=== PATIENT | male | born 1970 | race Caucasian/White ===

== ENCOUNTER 2018-04-30 09:44 | Inpatient (IN) | payer OTHER, SELFPAY ==
[2018-04-30] VITALS (24 sets, daily range): BP systolic 89–131; BP diastolic 53–97; PULSE 34–129; RESP 18–108; TEMP 36.6–37.4; O2SAT 90–98; BMI 30.4; BMI 29.0
--- NOTE | 2018-04-30 09:56 | EKG12_ITS ---
Test Reason : STEMI Blood Pressure : / mmHG Vent. Rate : 119 BPM Atrial Rate : 119 BPM P-R Int : 172 ms QRS Dur : 082 ms QT Int : 322 ms P-R-T Axes : 055 030 077 degrees QTc Int : 452 ms Sinus tachycardia Left atrial enlargement Anteroseptal infarct , possibly acute ACUTE [place] / STEMI Abnormal ECG Confirmed by JAGUAR HERNADEZ, LUZMARIA ([id number]), purchasing expeditor ION LOPEZ ([id number]) on 05/11/2018 3:49:57 PM Referred By: DEANN/GABBY Confirmed By:LUZMARIA MONTESINOS MD
--- NOTE | 2018-04-30 09:58 | ED.VISSUMM ---
- ER Visit Summary Date of Service: 04/30/18 Chief Complaint: [] Chest pain started 1/2-hour ago History of Present Illness: The patient is a 47 M [] reports no past history began having chest pain at half an hour ago, went to an urgent care center was given aspirin and per medics were called he was brought to the emergency department. The patient reports no past history no medications no drug use no [id number] or prescription meds his review of systems are negative for fever cough only chest pressure is actually states he is feeling slightly better after the aspirin his bowel bladder habits been normal We were sent his prehospital EKG and STEMI protocol team was activated Physical Examination: [] We are currently obtaining a full set of vital signs, he is awake and alert he appears well perfused his heart rate is 120 on the monitor he is in a sinus rhythm, EKG done immediately on arrival shows that he has ST segment elevation anterior leads, he is awake answering questions his airways intact his lungs sound clear the heart tones are tachycardic no obvious murmurs the abdomen soft and nontender upper lower extremities are without cyanosis clubbing or edema his pulses seem symmetric neurologically he is awake alert moving all [address] Rushing's care currently in the emergency department directing his STEMI care see all of the orders at this time he remains hemodynamically stable he states he is feeling better cardiology is planning to take the patient directly to cardiac Home Care Physical Therapist patient has been given the differential diagnosis, risks benefits, he is agreed to all the therapies outlined by Dr. Rushing and he is being taken direct to the Home Care Physical Therapist, all of his test results are pending and will be checked by the admitting team Test Results: [] Emergency Department Course and Treatment: [] Treatment Plan: [] Disposition: [] Admit to cardiac Home Care Physical Therapist/ICU Impression: [] Acute OK anterior, chest pain directly to cardiac Home Care Physical Therapist This note was generated with [employer] dictation software. It may contain incorrect words, spelling, and punctuation that were not noted in review of the chart prior to signing ED Disposition - Plan for ED Patient: Chief Complaint: Chest Pain
[2018-04-30] MEDS: TICAGRELOR 90 MG TABLET 180 MG PO (10:00)
[2018-04-30] MEDS: Heparin Injection (Vial) 5,000 UNIT/ML VIAL 5460 UNIT IV (10:00)
--- NOTE | 2018-04-30 10:02 | ED.DCSUM_ITS ---
- ER Visit Summary Date of Service: 04/30/18 Chief Complaint: [] Chest pain started 1/2-hour ago History of Present Illness: The patient is a 47 M [] reports no past history began having chest pain at half an hour ago, went to an urgent care center was given aspirin and per medics were called he was brought to the emergency department. The patient reports no past history no medications no drug use no [id number] or prescription meds his review of systems are negative for fever cough only chest pressure is actually states he is feeling slightly better after the aspirin his bowel bladder habits been normal We were sent his prehospital EKG and STEMI protocol team was activated Physical Examination: [] We are currently obtaining a full set of vital signs, he is awake and alert he appears well perfused his heart rate is 120 on the monitor he is in a sinus rhythm, EKG done immediately on arrival shows that he has ST segment elevation anterior leads, he is awake answering questions his airways intact his lungs sound clear the heart tones are tachycardic no obvious murmurs the abdomen soft and nontender upper lower extremities are without cyanosis clubbing or edema his pulses seem symmetric neurologically he is awake alert moving all [address] Rushing's care currently in the emergency department directing his STEMI care see all of the orders at this time he remains hemodynamically stable he states he is feeling better cardiology is planning to take the patient directly to cardiac Basting Machine Operator patient has been given the differential diagnosis, risks benefits, he is agreed to all the therapies outlined by Dr. Rushing and he is being taken direct to the Basting Machine Operator, all of his test results are pending and will be checked by the admitting team Test Results: [] Emergency Department Course and Treatment: [] Treatment Plan: [] Disposition: [] Admit to cardiac Basting Machine Operator/ICU Impression: [] Acute IA anterior, chest pain directly to cardiac Basting Machine Operator This note was generated with [employer] dictation software. It may contain incorrect words, spelling, and punctuation that were not noted in review of the chart p rior to signing ED Disposition - Plan for ED Patient: Chief Complaint: Chest Pain
[2018-04-30 10:13] LABS: Partial Thromboplast Time 26.5 Seconds (24.1-36.2); Prothrombin Time (Protime)PT. 13.3 SECONDS (11.7-14.9)
[2018-04-30 10:15] LABS: Absolute Lymphocyte Count 1.38 X10^3/ul (0.83-4.51); Absolute Neutrophil Count 9.3 X10^3/uL (2.0-7.7); Basophil# 0.01 X10^3/uL; Basophil% 0.1 % (0-1); Differential Indicated SCAN CRITERIA MET; Eosinophil# 0.01 X10^3/uL; Eosinophils% 0.1 % (0-5); Hematocrit 49.8 % (40-54); Hemoglobin 17.6 g/dl (13.0-16.5); Lymphocyte # 1.38 X10^3/ul (4.0); Lymphocyte % 11.1 % (19-41); Mean Corp Hgb Conc 35.3 g/gl (32-36); Mean Corpuscular Hgb 31.7 pg (27.0-32.0); Mean Corpuscular Volume 89.6 fL (80-94); Monocyte# 1.78 X10^3/uL; Monocyte% 14.3 % (0-10); Neutrophil # 9.29 X10^3/uL (2.7-7.7); Neutrophil % 74.3 % (47-70); POSITIVE COUNT NO; POSITIVE DIFFERENTIAL YES; POSITIVE MORPHOLOGY NO; Platelet Count 199 K/mm3 (150-450); RBC Distribution Width CV 13.1 % (11.6-14.6); RBC Distribution Width SD 42.5 fl (35.1-43.9); Red Blood Count 5.56 M/mm3 (4.6-6.2); White Blood Count 12.5 K/mm3 (4.4-11.0)
[2018-04-30 10:50] LABS: Anion Gap 11 (5-15); BUN 12 mg/dL (7-18); BUN/Creat Ratio 11.2 RATIO (10-20); Calcium,Total 9.1 mg/dL (8.5-10.1); Chloride 101 mmol/L (98-107); Creatinine, Serum 1.07 mg/dL (0.70-1.30); EST Glomerular Filtration Rate 79 mL/min (>60); Est Glom Filt Rate - Afr Amer 96 mL/min (>60); Estimated Creatinine Clearance 84.35 ml/min; Glucose 133 mg/dL (74-106); Potassium 3.6 mmol/L (3.5-5.1); Sodium Level 137 mmol/L (136-145)
--- NOTE | 2018-04-30 11:15 | EKG12_ITS ---
Test Reason : POST STEMI Blood Pressure : / mmHG Vent. Rate : 113 BPM Atrial Rate : 113 BPM P-R Int : 162 ms QRS Dur : 086 ms QT Int : 330 ms P-R-T Axes : 055 -02 078 degrees QTc Int : 452 ms Sinus tachycardia Septal infarct , age undetermined Abnormal ECG When compared with ECG of 30-APR-2018 11:36, MANUAL COMPARISON REQUIRED, DATA IS UNCONFIRMED Confirmed by JAGUAR HERNADEZ, LUZMARIA ([id number]), editor in chief newspaper ION LOPEZ ([id number]) on 05/06/2018 3:49:38 PM Referred By: VIKI Confirmed By:LUZMARIA MONTESINOS MD
--- NOTE | 2018-04-30 11:22 | CL.I_ITS ---
Patient Name: DELFINA LOPEZ Study Date: 04/30/2018 Performing: Mark Rushing MD Ht: 68 inches 173 cm : 1970 Wt: 200.9 lbs 91 kg Age: 47 Gender: male BSA: 2.05 PROCEDURE(S) PERFORMED [id number]/COR/LV [id number], SAMANTHA AND/OR PTCA, ARTERY OR GRAFT, SINGLE VESSEL [id number] INSERTION CLINICAL PROFILE AND CO-MORBIDITIES Patient presents with STEMI for emergent cardiac cath. Indications: ACS > 24 hrs, Suspected CAD Heart Failure: NYHA Class: 2, Newly Diagnosed: Yes, Heart Failure Type: Systolic Stress/Imaging Stress/Image Study Performed: No Angina Classification Anginal Classification w/in 2 Weeks: CCS IV CAD Presentations: STEMI. Symptom onset Date/Time: 04/29/2018 Time Not Available Comorbidities/Risk Factors: Hypertension Dyslipidemia Current/Recent Smoker (< 1year) CONCLUSIONS Single vessel CAD of the ostial LAD Segmented LV systolic dysfunction- Severe LVEF: by LV gram 45 % Depressed Left Ventricular systolic function - Severe Single vessel CAD of the LAD Successful PTCA/SAMANTHA proximal LAD using thrombectomy, followed by POBA, followed by 4.0 x 16 Promsu Sy nergy, post dilated throughtout with a 4.0 x 8 NC Balloon; 100%-->0%, no dissection or encroachment i nto LCX. Successful PTCA/SAMANTHA mid LAD with a 2.5 x 24 Promsu Synergy; 100%-->0%, no dissection. Successful PTCA/SAMANTHA distal LAD with a 2.5 x 24 Promus Synergy; 85%-->0%, no dissection. RECOMMENDATIONS Referred for immediate PCI Highly recommend quitting all tobacco products Follow up with primary juice scaleman Risk factor modification ASA Indefinitley Plavix for at least 12 months Routine post interventional care Refer for Outpatient Cardiac Rehab Manual sheath removal per protocol IABP at 1:2 for delayed STEMI presentation, high troponin and Severe anterior wall motion abnormaliti es. Follow up with Dr. Rushing DESCRIPTION OF PROCEDURE The patient arrived to the procedure lab. The risks and benefits of the procedure as well as a full d escription of our services here and lack of surgical backup were fully explained to the patient and/o r their significant other prior to the catheterization. The Timeout was completed, verifying the vianca ect patient and procedure. The patient's procedural site was prepped and draped in the usual fashion. Local anesthetic was given subcutaneously to right groin region with Lidocaine 2%. Using a modified Seldinger technique, arterial access was obtained via the right femoral artery, a 6Fr sheath was inse rted.. Right Coronary Artery selective angiography was then performed in multiple views using a 4 Fr . 3DRC catheter. Left Ventriculography was performed in CASTILLO projection using a 4 Fr. Pigtail catheter . LV to AO pullback pressures were then recordedArrow 40cc 7.5F UltraFlex IABP - Qty: 1 Each Part #: [id number], A 7Fr 40cc IABP catheter was inserted into the right femoral artery, IABP settings: 1:2, The IA BP catheter and sheath were secured in place EBU 3.75 Guide catheter was inserted and engaged into the LCA. runthrough Guide wire was advanced to the LAD. Killbuck AP inserted Pass # 1 Killbuck AP Removed emerge 2.5x12 Balloon catheter was inserted. P TCA balloon inflated at 6 atms for 8 secs. PTCA balloon inflated at 6 atms for 8 secs. Killbuck AP inse rted Pass # 2 Killbuck AP Removed Angiogram performed post balloon dilatation. BMW Guide wire was inser janis as a fabiana wire to the circ emerge 2.5x12 Balloon catheter was inserted. PTCA balloon inflated at 6 atms for 10 secs. PTCA balloon inflated at 6 atms for 8 secs. Angiogram performed post balloon dil atation. synergy 2.5x16 Drug Eluting stent was inserted. Drug Eluting stent was removed intact, faile d to cross lesion synergy 4.00x16 Drug Eluting stent was inserted. nc emerge 4.00x8 Balloon catheter was inserted. PTCA balloon inflated at 12 atms for 10 secs. PTCA balloon inflated at 12 atms for 6 se cs. PTCA balloon inflated at 12 atms for 8 secs. Angiogram performed post balloon dilatation. synergy 2.5x16 Drug Eluting stent was inserted. Drug Eluting stent was removed intact, failed to cross lesio n synergy 2.5x20 Drug Eluting stent was inserted. Angiogram performed post stent deployment. synergy 2.50x28 Drug Eluting stent was inserted. Angiogram performed post stent deployment. nc emerge 4.00x8 Balloon catheter was inserted. PTCA balloon inflated at 12 atms for 7 secs. PTCA balloon inflated at 12 atms for 9 secs. emerge 2.5x12 Balloon catheter was inserted on Circ BMW wire Angiogram performed post balloon dilatation. Arterial sheath was exchanged for a 7 Fr Sheath. The arterial sheath was s utured in place and capped CORONARY ANGIOGRAPHY DOMINANCE: Right Dominant LEFT HEART ASSESSMENT Left Ventricular Ejection Fraction: by LV Gram 45 % Depressed Left Ventricular systolic function LVEDP: 30 mmHg Anterior Hypokinesis - Severe LEFT MAIN: Angiographically normal LEFT ANTERIOR DECENDING ARTERY: OSTIAL LAD: is occluded CIRCUMFLEX ARTERY: Angiographically normal RIGHT CORONARY ARTERY: Angiographically normal COLLATERAL FLOW: Collateral flow from Right to Left INTERVENTION INFORMATION LESION SITE: LAD (Mid) Lesion Complexity: High/C, lesion at bifurcation: Yes, thrombus present: Yes, lesion length: 16 mm, c ulprit lesion: Yes Pre Stenosis: 100 % Pre intervention TONYA flow: 0 PROCEDURE: Balloon Angioplasty, Thrombectomy, Drug Eluting Stent with pre and post dilatation Post Stenosis: 0 % Post intervention TONYA flow: 3 Lesion Devices: Medtronic 6 Fr. Killbuck AP Aspiration Catheter Meng Sci EMERGE MR 2.50x12 BALLOON Meng Sci Synergy MR SAMANTHA 2.50x28 LESION SITE: LAD (Proximal) Lesion Complexity: High/C, lesion at bifurcation: No, thrombus present: Yes, lesion length: 24 mm, cu lprit lesion: No Pre Stenosis: 100 % Pre intervention TONYA flow: 0 PROCEDURE: Drug Eluting Stent with pre and post dilatation Thrombectomy Post Stenosis: 0 % Post intervention TONYA flow: 3 Lesion Devices: Medtronic 6 Fr. Killbuck AP Aspiration Catheter Meng Sci EMERGE MR 2.50x12 BALLOON Meng Sci Synergy MR SAMANTHA 4.00x16 Meng Sci NC EMERGE MR 4.00x08 BALLOON LESION SITE: LAD (Distal) Lesion Complexity: High/C, lesion at bifurcation: No, thrombus present: No, lesion length: 24 mm, cul prit lesion: No Pre Stenosis: 85 % Pre intervention TONYA flow: 0 PROCEDURE: Drug Eluting Stent with pre dilatation. 0 % Post intervention TONYA flow: 3 Lesion Devices: Meng Sci EMERGE MR 2.50x12 BALLOON Meng Sci Synergy MR SAMANTHA 2.50x16 Meng Sci Synergy MR SAMANTHA 2.50x20 COMPLICATIONS No Complications PROCEDURE MEDICATIONS Morphine 2 mg IV Oxygen: 2 L/min via nasal cannula Heparin 4000 unit(s) IV 04/30/2018 10:03:44 Heparin 4000 unit(s) IV 04/30/2018 10:03:44 Heparin 25,000u / 250ml D5W @ 800 u/hr IV started 04/30/2018 10:59:09 Nitro 200 mcg IC 04/30/2018 10:10:35 Nitro 200 mcg IC 04/30/2018 10:10:35 Nitro 200 mcg IC 04/30/2018 10:15:39 IV Bolus: .9 NaCl 1400ml total 04/30/2018 09:59:01 SUMMARY OF HEMODYNAMIC DATA Time AIR REST ECG 09:55:31 AO 101/71 (84) SA 10:01:24 LV 122/-2, 18 10:49:58 LV 122/-4, 30 10:50:05 LVp 126/1, 34 10:50:24 AOp 116/78 (94) 10:50:29 Signed By Mark Rushing MD On 05/01/2018 08:39:07 Mark Rushing MD
--- NOTE | 2018-04-30 11:43 | PCM.HP.STD ---
Problem List (1) ST elevation myocardial infarction (STEMI) of anterior wall Status: Acute (2) Tobacco use Status: Chronic (3) HTN (hypertension) Status: Chronic Qualifiers: Hypertension type: essential hypertension Qualified Code(s): I10 - Essential (primary) hypertension (4) HLD (hyperlipidemia) Status: Chronic Qualifiers: Hyperlipidemia type: unspecified Qualified Code(s): E78.5 - Hyperlipidemia, unspecified History of Present Illness Date of Admission: 04/30/18 Chief Complaint: Chest pain, dyspnea. The patient is a 47 y/o M w/ PMHx: Tobacco use who presents to the [facility] ED on 04/30/18 with history of onset midsternal chest pressure, rated / with radiation toward the back between his scapular with associated dyspnea, diaphoresis but no nausea or emesis starting this past Friday, intermittent, waxing and waning he notes, worse with any exertion but more severe episode ~ 20-30 minutes prior to ED arrival. Upon ED presentation work-up included 98, heart rate 127, BP 120/80, respiratory rate 20, 96% on room air, BC with WC 12.5, hemoglobin 17.6, platelet 199 with left shift, unremarkable coags except activated clotting time 202, BMP with glucose 133, troponin 74.4, urine drug screen negative, EKG w/ sinus rhythm with ST segment elevation in the anterior leads. STEMI immediately called and patient administered Brilinta load, heparin bolus, aspirin therapy. The patient was transitioned to the Cardiac Catheterization lab from ED w/ door to balloon time 19 minutes w/ single-vessel CAD of the LAD with successful PTCA/SAMANTHA of the proximal LAD using thrombectomy in addition to the mid and distal LAD with continued balloon pump in place with transition to the ICU following. Noted evidence of severe segmented LV systolic dysfunction with LVEF 45%. Discussion with cardiology and given patient's notable findings on cardiac catheterization continued balloon pump in place with transition per cardiology discretion with continued aspirin, Brilinta, continued Integrilin drip, high-dose statin with AM FLP, Coreg, losartan. Pending echocardiogram. Continue cardiac enzyme trending, repeat EKGs. Aspirin, morphine, nitroglycerin. Upon evaluation, patient notes chest discomfort improved since prior, was prior 06/06-->now 11/04. Past Medical History Past Medical History (Chronic Problems): Chronic Problems Tobacco use (Chronic) HTN (hypertension) (Chronic) HLD (hyperlipidemia) (Chronic) Allergies No Known Allergies Allergy (Verified 04/30/18 10:01) Home Medications: Ambulatory Orders Medication Instructions Recorded NK 04/30/18 Surgical History: no surgical history Psychiatric History: No pertinent psych hx Lives: Spouse/ Significant Other, With Family Smoking Status: Current every day smoker - Patient notes one approximate pack rolled cigarettes per day. Tobacco Use: Cigarettes Alcohol: None Drugs: None - *Family History Maternal History Items: - - Patient denies any marked maternal or paternal family history including heart disease, diabetes, cancer. Paternal History Items: - - Patient denies any marked maternal or paternal family history including heart disease, diabetes, cancer. Review of Systems Constitutional: Reports: Malaise, Weakness, Fatigue. Denies: Chills, Fever, Weight Change HEENT: Denies: Head Aches, Sinus Congestion, Sinus Drainage Cardiovascular: Reports: Chest Pain, Chest Pressure, Heaviness. Denies: Edema, Light Headedness, Orthopnea, Palpitations, Syncope Respiratory: Reports: Shortness of Breath, Shortness of breath upon exertion. Denies: Cough, Shortness of breath at rest, Sputum production Gastrointestinal: Denies: Abdominal Pain, Nausea, Vomiting Genitourinary: Denies: Dysuria Musculoskeletal: Reports: Back Pain, Neck Pain. Denies: Joint Pain, Joint Tenderness Skin: Denies: Rash, Wounds Neurological: Denies: Numbness, Tingling, Focal weakness Psychiatric: Denies: Anxiety, Depression, Homicidal Ideations, Suicidal Ideations Hematologic/ Lymphatic: Denies: Easy Bruising, Easy Bleeding VTE Information - Inpt Only VTE Present on Admission: No VTE Mechan Device Prophylaxis: SCD's VTE Pharm Prophylaxis ordered?: Yes Patient Problems: Active and Suspected Problems ST elevation myocardial infarction (STEMI) of anterior wall (Acute) Subjective: Seated in the ICU bed on bedrest status post cardiac catheterization with balloon pump in place, notes chest discomfort has improved since initial presentation, now rated 4 out of 10. Objective: Physical Examination: General: awake, alert, oriented x 3 and cooperative, seated upright in the ICU bed at angle secondary to ongoing balloon pump and recent cardiac catheterization, improved chest pain since initial presentation. Skin: normal color, turgor, no icterus, cyanosis. HEENT: AT/NC, EOMI, PERRLA, mildly dry MM, no carotid bruits or JVD noted. Lungs: CTA bilaterally, moderate effort, mild decrease BL bases, no rales, ronchi or wheezing. Heart: Tachycardic with regular rhythm; no gallop, rub audible, ? SM although suspect secondary to balloon pump in place. Abdomen: soft, NTTP, ND, normal BS, no HSM. Extremities: no cyanosis, clubbing, R groin w/ balloon pump sheath in place, no active bleeding, 2 separate outlined regions on gauze from prior bleeding. Neurological: patient awake, alert, oriented x 3; cognitive function intact; pupils equally reactive to light and accomodation; cranial nerves II-XII grossly normal, moving all 4 extremities; however, limited movement secondary to ongoing balloon pump in place and recent catheterization, strength therefore difficult to assess but currently globally decreased secondary to acute presentation. Psychiatric: affect appears normal, no acute evidence of depressive or anxiety feelings. - Physical Exam Vital Signs Temp Pulse Resp BP 98 F 127 H 20 H 120/80 04/30/18 09:46 04/30/18 09:46 04/30/18 09:46 04/30/18 09:46 Oxygen Flow Rate (L/min) 3 Oxygen Delivery Method Nasal Cannula Weight: 200 lb 9.93 oz Body Mass Index (BMI) 30.4 Laboratory Tests Past 24 Hrs 04/30/18 04/30/18 04/30/18 09:48 09:48 09:48 WBC 12.5 H RBC 5.56 Hgb 17.6 H Hct 49.8 MCV 89.6 MCH 31.7 MCHC 35.3 RDW 13.1 RDW Differential 42.5 Plt Count 199 MPV 11.0 Immature Gran % (Auto) 0.100 Neut % (Auto) 74.3 H Lymph % (Auto) 11.1 L [place] % (Auto) 14.3 H Eos % (Auto) 0.1 Baso % (Auto) 0.1 Absolute Neuts (auto) 9.3 H Absolute Lymphs (auto) 1.38 Total Counted Not Reportable Differential Comment COMMENT PT 13.3 INR 1.0 APTT 26.5 Sodium 137 Potassium 3.6 Chloride 101 Carbon Dioxide 25.0 Anion Gap 11 BUN 12 Creatinine 1.07 Estim Creat Clear Calc 84.35 Est GFR (MDRD) Af Amer 96 Est GFR (MDRD) Non-Af 79 BUN/Creatinine Ratio 11.2 Glucose 133 H Calcium 9.1 Troponin I 74.400 H* Assessment/Plan All Active Problems ST elevation myocardial infarction (STEMI) of anterior wall (Acute) Chest pain (Acute) The patient is a 47 y/o M w/ PMHx: Tobacco use who presents to the [facility] ED on 04/30/18 with history of onset midsternal chest pressure, rated 11/10 with radiation toward the back between his scapular with associated dyspnea, diaphoresis but no nausea or emesis starting this past Friday, intermittent, waxing and waning he notes, worse with any exertion but more severe episode ~ 20-30 minutes prior to ED arrival. (1) Chest Pain secondary to Acute Anterior STEMI: ED presentation work-up included 98, heart rate 127, BP 120/80, respiratory rate 20, 96% on room air, BC with WC 12.5, hemoglobin 17.6, platelet 199 with left shift, unremarkable coags except activated clotting time 202, BMP with glucose 133, troponin 74.4, urine drug screen negative, EKG w/ sinus rhythm with ST segment elevation in the anterior leads. STEMI immediately called and patient administered Brilinta load, heparin bolus, aspirin therapy. Cardiac Catheterization w/ single-vessel CAD of the LAD with successful PTCA/SAMANTHA of the proximal LAD using thrombectomy in addition to the mid and distal LAD with continued balloon pump in place with transition to the ICU following. Noted evidence of severe segmented LV systolic dysfunction with LVEF 45%. Discussion with cardiology and given patient's notable findings on cardiac catheterization continued balloon pump in place with transition per cardiology discretion with continued aspirin, Brilinta, continued Integrilin drip, high-dose statin with AM FLP, Coreg, losartan. Pending echocardiogram. Continue cardiac enzyme trending, repeat EKGs. Aspirin, morphine, nitroglycerin. (2) Hyperglycemia: Admission glucose 133, likely stress response, hemoglobin A1c pending. (3) Tobacco Abuse: Encouraged cessation, inpatient consultation per RT, NR if desired. (4) DVT Prophylaxis: SCDs, heparin bolus as noted administered, start chemoprophylaxis once allowed per Cardiology. Code Visit Inpatient E&M: 65907 Init Hosp L3
[2018-04-30 11:46] LABS: ACT Activated Clotting Time 202 sec (74-137)
[2018-04-30] MEDS: diazePAM 5 MG Tablet PO ×2 (12:45→20:21)
[2018-04-30] MEDS: Morphine 4 MG/ML Syringe IV ×2 (12:47→20:21)
[2018-04-30] MEDS: 0.9% Normal Saline 1,000 ML 150 ML IV (12:50)
[2018-04-30 12:53] LABS: Magnesium 1.6 mg/dL (1.6-2.6)
[2018-04-30 13:29] LABS: Amphetamine Urine VISTA NEGATIVE (<1000 ng/mL); Barbiturate Urine VISTA NEGATIVE (< 200 ng/mL); Benzodiazepine Urine VISTA NEGATIVE (< 200 ng/mL); Cocaine Urine VISTA NEGATIVE (< 300 ng/mL); Ecstacy Urine VISTA NEGATIVE (< 500 ng/mL); Methadone Urine VISTA NEGATIVE (< 300 ng/mL); PCP Urine VISTA NEGATIVE (< 25 ng/mL); THC Urine VISTA NEGATIVE (< 50 ng/mL); Vista UDS pH Range 5
[2018-04-30 15:10] LABS: M R Staph aureus DNA By PCR Negative (Negative); Probe Check PASS; Specimen Processing Control PASS
--- NOTE | 2018-04-30 15:50 | RAD_ITS ---
STUDY: X-RAY CHEST REASON FOR EXAM: Male, 47 years old. Intra-arterial blood pressure line placement. TECHNIQUE: Single AP portable view of the chest. COMPARISON: None. FINDINGS: The intra-arterial blood pressure line ends at the level of T3, proximal descending aorta. The lungs are clear and expanded. There is no demonstrated pleural abnormality. Normal size heart. Normal mediastinum and gaston. Normal visualized pulmonary arteries. Normal visualized aortic arch and descending thoracic aorta. Normal visualized thoracic spine. Normal visualized ribs, clavicles, and shoulders. There is no demonstrated abnormality of the visualized soft tissue structures of the upper abdomen. RAD/CXR for Line Placement IMPRESSION: Intra-arterial blood pressure line ends in the proximal descending aorta. No acute cardiopulmonary findings. Electronically Signed: Luzmaria Zelaya MD at 16:09 EDT , Service support ,
[2018-04-30 16:20] LABS: Bedside Glucose 127 mg/dL (70-110)
[2018-04-30] MEDS: Metoprolol Tartrate 5 MG/5 ML Vial IV (16:53)
[2018-04-30 17:02] LABS: Hemoglobin A1c 5.3 % (4.2-6.3)
[2018-04-30] MEDS: 0.9% NaCl Peripheral Flush Adult/Peds IV ×2 (20:21→20:22)
[2018-04-30] MEDS: Atorvastatin Calcium 80 MG Tablet PO (21:23)
[2018-04-30] MEDS: TICAGRELOR 90 MG TABLET PO (21:23)
[2018-04-30] MEDS: Famotidine 20 MG Tablet PO (21:23)
[2018-04-30] MEDS: Furosemide 20 MG/2 ML VIAL 40 MG IV (21:55)
[2018-04-30 23:11] LABS: Partial Thromboplast Time 45.5 Seconds (24.1-36.2)
--- NOTE | 2018-04-30 23:30 | NURSING ---
gave 1000 units of heparin in 1 ml per nomogram in MAR
[2018-05-01] VITALS (34 sets, daily range): BP systolic 81–148; BP diastolic 49–89; PULSE 73–108; RESP 15–29; TEMP 37–38.9; O2SAT 88–97
[2018-05-01 05:27] LABS: Hematocrit 44.8 % (40-54); Hemoglobin 15.8 g/dl (13.0-16.5); Mean Corp Hgb Conc 35.3 g/gl (32-36); Mean Corpuscular Hgb 31.3 pg (27.0-32.0); Mean Corpuscular Volume 88.9 fL (80-94); Mean Platelet Vol. 10.8 fl (6.2-12.0); Platelet Count 213 K/mm3 (150-450); RBC Distribution Width CV 13.5 % (11.6-14.6); RBC Distribution Width SD 43.5 fl (35.1-43.9); Red Blood Count 5.04 M/mm3 (4.6-6.2); White Blood Count 12.9 K/mm3 (4.4-11.0)
[2018-05-01 05:37] LABS: Scan Indicated on CBC? Y/N NO
[2018-05-01 05:42] LABS: Anion Gap 9 (5-15); BUN 19 mg/dL (7-18); BUN/Creat Ratio 17.3 RATIO (10-20); Calcium,Total 8.2 mg/dL (8.5-10.1); Chloride 100 mmol/L (98-107); Cholesterol 162 mg/dL (200); EST Glomerular Filtration Rate 77 mL/min (>60); Est Glom Filt Rate - Afr Amer 93 mL/min (>60); Estimated Creatinine Clearance 82.05 ml/min; Glucose 121 mg/dL (74-106); High Density Lipoprotein 37 mg/dL; Potassium 3.5 mmol/L (3.5-5.1); Sodium Level 135 mmol/L (136-145); Triglycerides 145 mg/dL; Very Low Density Lipoprotein 29 mg/dL (5-40)
[2018-05-01 05:57] LABS: Partial Thromboplast Time 54.6 Seconds (24.1-36.2)
[2018-05-01 06:30] LABS: Bedside Glucose 143 mg/dL (70-110)
--- NOTE | 2018-05-01 06:58 | PCM.PN.HOSP ---
Patient Problems: Active and Suspected Problems (Last Updated 04/30/18 @ 16:41 by Hina Pruett) Atherosclerotic heart disease of [place] coronary artery with unstable angina pectoris (Acute 04/30/18) PTCA and SAMANTHA to proximal LAD using thrombectomy followed by POBA, followed by 4.0 X 16 mm Promus Synergy; SAMANTHA to 100% stenosed mid LAD: 2.5 X 24 Promus Synergy; SAMANTHA to 85% stenosed distal LAD : 2.5 X 24 Promus Synergy. Stented coronary artery (Acute 04/30/18) PTCA and SAMANTHA to proximal LAD using thrombectomy followed by POBA, followed by 4.0 X 16 mm Promus Synergy; SAMANTHA to 100% stenosed mid LAD: 2.5 X 24 Promus Synergy; SAMANTHA to 85% stenosed distal LAD : 2.5 X [address] elevation myocardial infarction (STEMI) of anterior wall (Acute) Subjective: Patient with ongoing balloon pump usage with echocardiogram with notable EF reduction and hypokinesis evident with pending results. Patient also with ongoing mild tachycardia and dyspnea with aerosols initiation as well as ICU physician consultation. Discussion with patient and with ICU physician given history suspected possible underlying reduced function baseline versus exertional hypoxemia with need for PFTs and walking oximetry upon discharge with pulmonary outpatient. Patient overnight with some concern for failure therefore administrated IV Lasix therapy per cardiology. Patient notes ongoing severe fatigue with any movements although limited given balloon pump ongoing, denies any chest pain this AM, does have desaturations intermittently overnight. Patient denies fevers, chills, nausea, emesis, abdominal pain. Objective: Physical Examination: General: awake, alert, oriented x 3 and cooperative, seated upright in the ICU bed at angle, ongoing balloon pump, denies any current chest pain. Skin: normal color, turgor, no icterus, cyanosis, R groin w/ balloon pump in place. HEENT: AT/NC, EOMI, PERRLA, improved MMM. Lungs: Diminished BS BL bases, mild effort, no rales, ronchi or wheezing. Heart: Still mildly tachycardic with regular rhythm; no gallop, rub audible. Abdomen: soft, NTTP, ND, normal BS. Extremities: no cyanosis, clubbing, R groin w/ balloon pump sheath in place. Neurological: patient awake, alert, oriented x 3; cognitive function intact; pupils equally reactive to light and accomodation; cranial nerves II-XII grossly normal, moving all 4 extremities; however, limited movement secondary to ongoing balloon pump in place and recent catheterization, strength therefore difficult to assess but currently globally decreased. Psychiatric: affect appears normal, no acute evidence of depressive or anxiety feelings. Vitals/I&O's: Vital Signs Temp Pulse Resp BP Pulse Ox 99 F 98 26 H 91/71 91 05/01/18 06:00 05/01/18 06:00 05/01/18 06:00 05/01/18 06:00 05/01/18 06:00 Oxygen Flow Rate (L/min) 2 Oxygen Delivery Method Nasal Cannula Weight: 194 lb 0.108 oz Body Mass Index (BMI) 29.0 Intake and Output for Last 24 Hours 04/29/18 04/30/18 05/01/18 23:59 23:59 23:59 Intake Total 800 / 800 928 / 928 Output Total 2268 / 2268 690 / 690 Balance -1468 / -1468 238 / 238 Laboratory Results 04/30/18 09:48: WBC 12.5 H, RBC 5.56, Hgb 17.6 H, Hct 49.8, MCV 89.6, MCH 31.7, MCHC 35.3, RDW 13.1, RDW Differential 42.5, Plt Count 199, MPV 11.0, Immature Gran % (Auto) 0.100, Neut % (Auto) 74.3 H, Lymph % (Auto) 11.1 L, [place] % (Auto) 14.3 H, Eos % (Auto) 0.1, Baso % (Auto) 0.1, Absolute Neuts (auto) 9.3 H, Absolute Lymphs (auto) 1.38, Total Counted Not Reportable, Differential Comment COMMENT 04/30/18 09:48: PT 13.3, INR 1.0, APTT 26.5 04/30/18 09:48: Sodium 137, Potassium 3.6, Chloride 101, Carbon Dioxide 25.0, Anion Gap 11, BUN 12, Creatinine 1.07, Estim Creat Clear Calc 84.35, Est GFR (MDRD) Af Amer 96, Est GFR (MDRD) Non-Af 79, BUN/Creatinine Ratio 11.2, Glucose 133 H, Calcium 9.1, Troponin I 74.400 H* 10/04/18 09:48: Magnesium 1.6 04/30/18 10:00: Activated Clotting Time 202 H 04/30/18 12:20: MRSA (PCR) Negative 04/30/18 13:00: Urine Opiates Screen NEGATIVE, Urine Methadone Screen NEGATIVE, Ur Barbiturates Screen NEGATIVE, Ur Phencyclidine Scrn NEGATIVE, Ur Amphetamines Screen NEGATIVE, U Methamphetamin-MDMA NEGATIVE, U Benzodiazepines Scrn NEGATIVE, Urine Cocaine Screen NEGATIVE, U Cannabinoids Screen NEGATIVE, Ur Drug Screen Comment 04/30/18 13:50: Troponin I > 200.000 H* 04/30/18 16:18: POC Glucose 127 H 04/30/18 16:36: Troponin I 172.000 H* 04/30/18 16:36: Hemoglobin A1c 5.3 04/30/18 20:05: Troponin I 125.000 H* 04/30/18 22:55: APTT 45.5 H 05/01/18 05:10: WBC 12.9 H, RBC 5.04, Hgb 15.8, Hct 44.8, MCV 88.9, MCH 31.3, MCHC 35.3, RDW 13.5, RDW Differential 43.5, Plt Count 213, MPV 10.8 05/01/18 05:10: Sodium 135 L, Potassium 3.5, Chloride 100, Carbon Dioxide 26.0, Anion Gap 9, BUN 19 H, Creatinine 1.10, Estim Creat Clear Calc 82.05, Est GFR (MDRD) Af Amer 93, Est GFR (MDRD) Non-Af 77, BUN/Creatinine Ratio 17.3, Glucose 121 H, Calcium 8.2 L, Triglycerides 145, Cholesterol 162, LDL Cholesterol 96, VLDL Cholesterol 29, HDL Cholesterol 37 L 05/01/18 05:10: APTT 54.6 H 05/01/18 06:23: POC Glucose 143 H Current Medications Acetaminophen (Tylenol) 650 mg PO Q6H PRN PRN PRN Reason: Mild Pain (0-2/10) Al Hydroxide/Mg Hydroxide (Mylanta Ii) 30 ml PO Q6H PRN PRN PRN Reason: Gastric burning Atorvastatin Calcium (Lipitor) 80 mg PO QHS YESY Last Admin: 04/30/18 21:23 Dose: 80 mg Atropine Sulfate () 0.5 mg IV UD PRN PRN Reason: HR <50 bpm Carvedilol (Coreg) 3.125 mg PO BID [facility] Last Admin: 04/30/18 21:12 Dose: Not Given Diazepam (Valium) 5 mg PO Q6H PRN PRN PRN Reason: BACK SPASMS/ANXIETY Last Admin: 04/30/18 20:21 Dose: 5 mg Famotidine (Pepcid) 20 mg PO BID [facility] Last Admin: 04/30/18 21:23 Dose: 20 mg Heparin Sodium (Beef Lung) (Heparin 500 Unit/5 Ml (100/Ml)) 500 unit IV UD PRN PRN Reason: HEPARIN FLUSH Heparin Sodium/Dextrose () 25,000 units in 250 mls @ 12 mls/hr IV .[id number] [facility]; Protocol Last Admin: 04/30/18 12:46 Dose: Not Given Amiodarone HCl/Dextrose (Nexterone 360 Mg/200 Ml Bag) 360 mg in 200 mls @ 16.667 mls/hr CONT INF .Q12H [facility] Stop: 05/01/18 21:28 Last Admin: 05/01/18 04:54 Dose: 16.667 mls/hr Ibuprofen (Motrin) 600 mg PO Q6H PRN PRN PRN Reason: MILD PAIN (1-3/10) Labetalol HCl (Trandate) 5 mg IV X1 PRN PRN Reason: SBP > 160 when pulling sheath Magnesium Hydroxide (Milk Of Magnesia) 30 ml PO DAILY PRN PRN PRN Reason: Constipation Morphine Sulfate () 4 mg IV Q4H PRN PRN PRN Reason: Moderate back pain (3-5/10) Last Admin: 04/30/18 20:21 Dose: 4 mg Ondansetron HCl (Zofran) 4 mg IV Q8H PRN PRN PRN Reason: NAUSEA Promethazine HCl (Phenergan) 12.5 mg IV Q6H PRN PRN PRN Reason: NAUSEA/VOMITING Sodium Chloride () 500 ml IV BOLUS PRN PRN Reason: VASO-VAGAL PROTOCOL Sodium Chloride () 5 - 30 ml IV UD PRN PRN Reason: SALINE FLUSH Last Admin: 04/30/18 20:22 Dose: 10 ml Ticagrelor (Brilinta) 90 mg PO BID [facility] Last Admin: 04/30/18 21:23 Dose: 90 mg Valsartan (Diovan) 80 mg PO DAILY [facility] Medical Necessity - Tobacco Use Smoking Status: Current every day smoker Tobacco Use: Cigarettes Assessment/Plan All Active Problems (Last Updated 04/30/18 @ 16:41 by Hina Pruett) Atherosclerotic heart disease of [place] coronary artery with unstable angina pectoris (Acute 04/30/18) Stented coronary artery (Acute 04/30/18) ST elevation myocardial infarction (STEMI) of anterior wall (Acute) Chest pain (Acute) The patient is a 47 y/o M w/ PMHx: Tobacco use who presents to the [facility] ED on 04/30/18 with history of onset midsternal chest pressure, rated 11/10 with radiation toward the back between his scapular with associated dyspnea, diaphoresis but no nausea or emesis starting this past Friday, intermittent, waxing and waning he notes, worse with any exertion but more severe episode ~ 20-30 minutes prior to ED arrival. (1) Chest Pain secondary to Acute Anterior STEMI: ED presentation work-up included 98, heart rate 127, BP 120/80, respiratory rate 20, 96% on room air, BC with WC 12.5, hemoglobin 17.6, platelet 199 with left shift, unremarkable coags except activated clotting time 202, BMP with glucose 133, troponin 74.4, urine drug screen negative, EKG w/ sinus rhythm with ST segment elevation in the anterior leads. STEMI immediately called and patient administered Brilinta load, heparin bolus, aspirin therapy. Cardiac Catheterization w/ single-vessel CAD of the LAD with successful PTCA/SAMANTHA of the proximal LAD using thrombectomy in addition to the mid and distal LAD with continued balloon pump in place with transition to the ICU following. Noted evidence of severe segmented LV systolic dysfunction with LVEF 45%. Discussion with cardiology and given patient's notable findings on cardiac catheterization continued balloon pump in place with transition per cardiology discretion with continued aspirin, Brilinta, Integrilin drip to completion now transitioned back to heparin drip per Cardiology discretion, high-dose statin with AM FLP w/ TG 145, TChol 162, LDL 96, LDL 29, HDL 37, Coreg, losartan. ECHO obtained, read pending but per preliminary discussions notably reduced EF and hypokinesis noted. Mag 1.6, supplemented. Continue cardiac enzyme trending w/ Trop 74.4-->>200-->172-->125, repeat EKGs as needed. Aspirin, morphine, nitroglycerin. (2) Acute Systolic CHF Exacerbation secondary to #1 (Acute Anterior STEMI) and possible Ischemic Cardiomyopathy: Maintained on the balloon pump, ECHO this AM w/ preliminary report w/ reduced EF 25% and notable hypokinesis, maintained on aspirin, Coreg, intermittent PRN IV Lasix per cardiology discretion, diovan, brillinta and high dose statin therapy. (3) Hypoxia secondary to #1, #2 and Suspected Underlying Pulmonary Disease/Chronic COPD w/ prolonged history of Tobacco use: Desaturations w/ activity, resting, will maintain on oxygen with wean as tolerated to room air, continue ATC duonebs, PRN albuterol, HOB, IS parameters. Will need follow-up with pulmonary following discharge for PFTs and walking oximetry testing. Prior to current discharge once allowed when balloon pump d/c will need oxygenation testing. (4) Hypertension: Continue home regimen including Coreg, Diovan, intermittent PRN IV Lasix given #2. (5) Hyperlipidemia: Continue statin regimen. AM FLP w/ TG 145, TChol 162, LDL 96, LDL 29, HDL 37. (6) Hyperglycemia: Admission glucose 133, likely stress response, hemoglobin A1c 5.3%. (7) Tobacco Abuse: Encouraged cessation, inpatient consultation per RT, deferred NR given admission presentation history. (8) DVT Prophylaxis: SCDs, heparin drip. Code Visit Inpatient E&M: 21034 Subs Hosp L3
--- NOTE | 2018-05-01 07:09 | PN_ITS ---
Patient Problems: Active and Suspected Problems (Last Updated 04/30/18 @ 16:41 by Hina Pruett) Atherosclerotic heart disease of [place] coronary artery with unstable angina pectoris (Acute 04/30/18) PTCA and SAMANTHA to proximal LAD using thrombectomy followed by POBA, followed by 4.0 X 16 mm Promus Synergy; SAMANTHA to 100% stenosed mid LAD: 2.5 X 24 Promus Synergy; SAMANTHA to 85% stenosed distal LAD : 2.5 X 24 Promus Synergy. Stented coronary artery (Acute 04/30/18) PTCA and SAMANTHA to proximal LAD using thrombectomy followed by POBA, followed by 4.0 X 16 mm Promus Synergy; SAMANTHA to 100% stenosed mid LAD: 2.5 X 24 Promus Synergy; SAMANTHA to 85% stenosed distal LAD : 2.5 X [address] elevation myocardial infarction (STEMI) of anterior wall (Acute) Subjective: Patient with ongoing balloon pump usage with echocardiogram with notable EF reduction and hypokinesis evident with pending results. Patient also with ongoing mild tachycardia and dyspnea with aerosols initiation as well as ICU physician consultation. Discussion with patient and with ICU physician given history suspected possible underlying reduced function baseline versus exertional hypoxemia with need for PFTs and walking oximetry upon discharge with pulmonary outpatient. Patient overnight with some concern for failure therefore administrated IV Lasix therapy per cardiology. Patient notes ongoing severe fatigue with any movements although limited given balloon pump ongoing, denies any chest pain this AM, does have desaturations intermittently overnight. [place] schroeder denies fevers, chills, nausea, emesis, abdominal pain. Objective: Physical Examination: General: awake, alert, oriented x 3 and cooperative, seated upright in the ICU b ed at angle, ongoing balloon pump, denies any current chest pain. Skin: normal color, turgor, no icterus, cyanosis, R groin w/ balloon pump in place. HEENT: AT/NC, EOMI, PERRLA, improved MMM. Lungs: Diminished BS BL bases, mild effort, no rales, ronchi or wheezing. Heart: Still mildly tachycardic with regular rhythm; no gallop, rub audible. Abdomen: soft, NTTP, ND, normal BS. Extremities: no cyanosis, clubbing, R groin w/ balloon pump sheath in place. Neurological: patient awake, alert, oriented x 3; cognitive function intact; pupils equally reactive to light and accomodation; cranial nerves II-XII grossly normal, moving all 4 extremities; however, limited movement secondary to ongoing balloon pump in place and recent catheterization, strength therefore difficult to assess but currently globally decreased. Psychiatric: affect appears normal, no acute evidence of depressive or anxiety feelings. Vitals/I&O's: Vital Signs Temp Pulse Resp BP Pulse Ox 99 F 98 26 H 91/71 91 05/01/18 06:00 05/01/18 06:00 05/01/18 06:00 05/01/18 06:00 05/01/18 06:00 Oxygen Flow Rate (L/min) 2 Oxygen Delivery Method Nasal Cannula Weight: 194 lb 0.108 oz Body Mass Index (BMI) 29.0 Intake and Output for Last 24 Hours 04/29/18 04/30/18 05/01/18 23:59 23:59 23:59 Intake Total 800 / 800 928 / 928 Output Total 2268 / 2268 690 / 690 Balance -1468 / -1468 238 / 238 Laboratory Results 04/30/18 09:48: WBC 12.5 H, RBC 5.56, Hgb 17.6 H, Hct 49.8, MCV 89.6, MCH 31.7, MCHC 35.3, RDW 13.1, RDW Differential 42.5, Plt Count 199, MPV 11.0, Immature Gran % (Auto) 0.100, Neut % (Auto) 74.3 H, Lymph % (Auto) 11.1 L, [place] % (Auto) 14.3 H, Eos % (Auto) 0.1, Baso % (Auto) 0.1, Absolute Neuts (auto) 9.3 H, Absolute Lymphs (auto) 1.38, Total Counted Not Reportable, Differential Comment COMMENT 04/30/18 09:48: PT 13.3, INR 1.0, APTT 26.5 04/30/18 09:48: Sodium 137, Potassium 3.6, Chloride 101, Carbon Dioxide 25.0, Anion Gap 11, BUN 12, Creatinine 1.07, Estim Creat Clear Calc 84.35, Est GFR (MDRD) Af Amer 96, Est GFR (MDRD) Non-Af 79, BUN/Creatinine Ratio 11.2, Glucose 133 H, Calcium 9.1, Troponin I 74.400 H* 04/30/18 09:48: Magnesium 1.6 04/30/18 10:00: Activated Clotting Time 202 H 04/30/18 12:20: MRSA (PCR) Negative 04/30/18 13:00: Urine Opiates Screen NEGATIVE, Urine Methadone Screen NEGATIVE, Ur Barbiturates Screen NEGATIVE, Ur Phencyclidine Scrn NEGATIVE, Ur Amphetamines Screen NEGATIVE, U Methamphetamin-MDMA NEGATIVE, U Benzodiazepines Scrn NEGATIVE, Urine Cocaine Screen NEGATIVE, U Cannabinoids Screen NEGATIVE, Ur Drug Screen Comment 04/30/18 13:50: Troponin I > 200.000 H* 04/30/18 16:18: POC Glucose 127 H 04/30/18 16:36: Troponin I 172.000 H* 04/30/18 16:36: Hemoglobin A1c 5.3 04/30/18 20:05: Troponin I 125.000 H* 04/30/18 22:55: APTT 45.5 H 05/01/18 05:10: WBC 12.9 H, RBC 5.04, Hgb 15.8, Hct 44.8, MCV 88.9, MCH 31.3, MCHC 35.3, RDW 13.5, RDW Differential 43.5, Plt Count 213, MPV 10.8 05/01/18 05:10: Sodium 135 L, Potassium 3.5, Chloride 100, Carbon Dioxide 26.0, Anion Gap 9, BUN 19 H, Creatinine 1.10, Estim Creat Clear Calc 82.05, Est GFR (MDRD) Af Amer 93, Est GFR (MDRD) Non-Af 77, BUN/Creatinine Ratio 17.3, Glucose 121 H, Calcium 8.2 L, Triglycerides 145, Cholesterol 162, LDL Cholesterol 96, VLDL Cholesterol 29, HDL Cholesterol 37 L 05/01/18 05:10: APTT 54.6 H 05/01/18 06:23: POC Glucose 143 H Current Medications Acetaminophen (Tylenol) 650 mg PO Q6H PRN PRN PRN Reason: Mild Pain (0-2/10) Al Hydroxide/Mg Hydroxide (Mylanta Ii) 30 ml PO Q6H PRN PRN PRN Reason: Gastric burning Atorvastatin Calcium (Lipitor) 80 mg PO QHS YESY Last Admin: 04/30/18 21:23 Dose: 80 mg Atropine Sulfate () 0.5 mg IV UD PRN PRN Reason: HR <50 bpm Carvedilol (Coreg) 3.125 mg PO BID [facility] Last Admin: 04/30/18 21:12 Dose: Not Given Diazepam (Valium) 5 mg PO Q6H PRN PRN PRN Reason: BACK SPASMS/ANXIETY Last Admin: 04/30/18 20:21 Dose: 5 mg Famotidine (Pepcid) 20 mg PO BID [facility] Last Admin: 04/30/18 21:23 Dose: 20 mg Heparin Sodium (Beef Lung) (Heparin 500 Unit/5 Ml (100/Ml)) 500 unit IV UD PRN PRN Reason: HEPARIN FLUSH Heparin Sodium/Dextrose () 25,000 units in 250 mls @ 12 mls/hr IV .[id number] [facility]; Protocol Last Admin: 04/30/18 12:46 Dose: Not Given Amiodarone HCl/Dextrose (Nexterone 360 Mg/200 Ml Bag) 360 mg in 200 mls @ 16.667 mls/hr CONT INF .Q12H [facility] Stop: 05/01/18 21:28 Last Admin: 05/01/18 04:54 Dose: 16.667 mls/hr Ibuprofen (Motrin) 600 mg PO Q6H PRN PRN PRN Reason: MILD PAIN (1-3/10) Labetalol HCl (Trandate) 5 mg IV X1 PRN PRN Reason: SBP > 160 when pulling sheath Magnesium Hydroxide (Milk Of Magnesia) 30 ml PO DAILY PRN PRN PRN Reason: Constipation Morphine Sulfate () 4 mg IV Q4H PRN PRN PRN Reason: Moderate back pain (3-5/10) Last Admin: 04/30/18 20:21 Dose: 4 mg Ondansetron HCl (Zofran) 4 mg IV Q8H PRN PRN PRN Reason: NAUSEA Promethazine HCl (Phenergan) 12.5 mg IV Q6H PRN PRN PRN Reason: NAUSEA/VOMITING Sodium Chloride () 500 ml IV BOLUS PRN PRN Reason: VASO-VAGAL PROTOCOL Sodium Chloride () 5 - 30 ml IV UD PRN PRN Reason: SALINE FLUSH Last Admin: 04/30/18 20:22 Dose: 10 ml Ticagrelor (Brilinta) 90 mg PO BID [facility] Last Admin: 04/30/18 21:23 Dose: 90 mg Valsartan (Diovan) 80 mg PO DAILY [facility] Medical Necessity - Tobacco Use Smoking Status: Current every day smoker Tobacco Use: Cigarettes Assessment/Plan All Active Problems (Last Updated 04/30/18 @ 16:41 by Hina Pruett) Atherosclerotic heart disease of [place] coronary artery with unstable angina pectoris (Acute 04/30/18) Stented coronary artery (Acute 04/30/18) ST elevation myocardial infarction (STEMI) of anterior wall (Acute) Chest pain (Acute) The patient is a 47 y/o M w/ PMHx: Tobacco use who presents to the [facility] ED on 04/30/18 with history of onset midsternal chest pressure, rated 11/10 with radiation toward the back between his scapular with associated dyspnea, diaphoresis but no nausea or emesis starting this past Friday, intermittent, waxing and waning he notes, worse with any exertion but more severe episode ~ 20-30 minutes prior to ED arrival. (1) Chest Pain secondary to Acute Anterior STEMI: ED presentation work-up included 98, heart rate 127, BP 120/80, respiratory rate 20, 96% on room air, BC with WC 12.5, hemoglobin 17.6, platelet 199 with left shift, unremarkable coags except activated clotting time 202, BMP with glucose 133, troponin 74.4, urine drug screen negative, EKG w/ sinus rhythm with ST segment elevation in the anterior leads. STEMI immediately called and patient administered Brilinta load, heparin bolus, aspirin therapy. Cardiac Catheterization w/ single-vessel CAD of the LAD with successful PTCA/SAMANTHA of the proximal LAD using thrombectomy in addition to the mid and distal LAD with continued balloon pump in place with transition to the ICU following. Noted evidence of severe segmented LV systolic dysfunction with LVEF 45%. Discussion with cardiology and given patient's notable findings on cardiac catheterization continued balloon pump in place with transition per cardiology discretion with continued aspirin, Brilinta, Integrilin drip to completion now transitioned back to heparin drip per Cardiology discretion, high-dose statin with AM FLP w/ TG 145, TChol 162, LDL 96, LDL 29, HDL 37, Coreg, losartan. ECHO obtained, read pending but per preliminary discussions notably reduced EF and hypokinesis noted. Mag 1.6, supplemented. Continue cardiac enzyme trending w/ Trop 74.4-->>200-->172-->125, repeat EKGs as needed. Aspirin, morphine, nitroglycerin. (2) Acute Systolic CHF Exacerbation secondary to #1 (Acute Anterior STEMI) and possible Ischemic Cardiomyopathy: Maintained on the balloon pump, ECHO this AM w/ preliminary report w/ reduced EF 25% and notable hypokinesis, maintained on aspirin, Coreg, intermittent PRN IV Lasix per cardiology discretion, diovan, brillinta and high dose statin therapy. (3) Hypoxia secondary to #1, #2 and Suspected Underlying Pulmonary Dise ase/Chronic COPD w/ prolonged history of Tobacco use: Desaturations w/ activity, resting, will maintain on oxygen with wean as tolerated to room air, continue ATC duonebs, PRN albuterol, HOB, IS parameters. Will need follow-up with pulmonary following discharge for PFTs and walking oximetry testing. Prior to current discharge once allowed when balloon pump d/c will need oxygenation testing. (4) Hypertension: Continue home regimen including Coreg, Diovan, intermittent PRN IV Lasix given #2. (5) Hyperlipidemia: Continue statin regimen. AM FLP w/ TG 145, TChol 162, LDL 96, LDL 29, HDL 37. (6) Hyperglycemia: Admission glucose 133, likely stress response, hemoglobin A1c 5.3%. (7) Tobacco Abuse: Encouraged cessation, inpatient consultation per RT, deferred NR given admission presentation history. (8) DVT Prophylaxis: SCDs, heparin drip. Code Visit Inpatient E&M: 18981 Subs Hosp L3
--- NOTE | 2018-05-01 07:30 | NURSING ---
Dr. Rushing aware plateau issues w/IABP. no changes made
--- NOTE | 2018-05-01 07:41 | ECHOCS_ITS ---
Reason For Study: EKG-ABNORMAL Procedure This was a 2D Doppler, Color Flow transthoracic echocardiogram. Exam performed portable in ICU/CCU. Left Ventricle Mild concentric left ventricular hypertrophy. The estimated ejection fraction is 25-30 %. Stage 1 diastolic dysfunction. Basal anteroseptal: Severely Hypokinetic. Mid-Anterior : Akinetic. Anterior [place] : Akinetic. [place] : Akinetic. Right Ventricle Normal size and thickness. Normal systolic function. Atria Normal left atrium. Normal right atrium. Normal atrial septum. Mitral Valve The mitral valve is structurally normal. No prolapse or stenosis seen. Tricuspid Valve Normal tricuspid valve. Unable to estimate RV systolic pressure due to inadequate jet, pulmonary artery pressure probably normal. Aortic Valve Normal aortic valve. Trisinus/trileaflet aortic valve. Pulmonic Valve Normal pulmonic valve. Great Vessels Normal aortic root. Normal arch. Normal inferior vena cava. Inferior vena cava collapse with sniff. Pericardium/Pleural No pericardial effusion. Medication Diluted definity 4ml given slow IV push to enhance endocardial definition. MMode/2D Measurements & Calculations LVIDd: 4.6 cm IVSd: 1.3 cm Ao root diam: 3.2 cm LVIDs: 3.8 cm LVPWd: 1.2 cm LA dimension: 2.8 cm RVDd: 2.8 cm FS: 16.9 % LAV(MOD-bp): 27.5 ml LVAd ap4: 33.5 cm2 SV(MOD-sp4): 33.5 ml LAV(MOD-bp) Indexed: 13.6 ml/m2 EDV(MOD-sp4): 108.6 ml LAV(MOD-sp2): 30.3 ml EDV(sp4-el): 111.8 ml LAV(MOD-sp4): 24.2 ml LVAs ap4: 27.0 cm2 ESV(MOD-sp4): 75.1 ml ESV(sp4-el): 77.6 ml EF(MOD-sp4): 30.8 % EF(sp4-el): 30.6 % SV(sp4-el): 34.2 ml LA A4 area: 10.9 cm2 RA A4 area: 10.8 cm2 Time Measurements MV dec time: 0.13 sec Doppler Measurements & Calculations MV E max jace: 76.4 cm/sec Lat Peak E' Jace: 10.7 cm/sec Med Peak E' Jace: 8.0 cm/sec MV A max jace: 54.9 cm/sec E/E' lat: 7.2 E/E' med: 9.5 MV E/A: 1.4 Ao V2 max: 108.1 cm/sec LV V1 max: 102.5 cm/sec PA V2 max: 106.3 cm/sec Ao max P.7 mmHg LV V1 max P.2 mmHg Interpretation Summary The estimated ejection fraction is 25-30 %. Stage 1 diastolic dysfunction. Unable to estimate RV systolic pressure due to inadequate jet, pulmonary artery pressure probably normal. Basal anteroseptal: Severely Hypokinetic. Mid-Anterior : Akinetic. Anterior [place] : Akinetic. [place] : Akinetic. There is no comparison study available. The study was technically difficult. Contrast injection was performed. Ordering Physician: Mark Rushing Performed By: Yani Patricio RDCS
--- NOTE | 2018-05-01 07:42 | RAD_ITS ---
STUDY: X-RAY CHEST REASON FOR EXAM: Male, 47 years old. STEMI patient TECHNIQUE: Single AP portable view of the chest. COMPARISON: None. FINDINGS: Stable appearance of intra-arterial blood pressure line ending in the proximal descending aorta. Lungs are adequately inflated, questionable developing left retrocardiac infiltrate. There is no demonstrated pleural abnormality. Normal size heart. Normal mediastinum and gaston. Normal visualized pulmonary arteries. Normal visualized aortic arch and descending thoracic aorta. Normal visualized thoracic spine. Normal visualized ribs, clavicles, and shoulders. There is no demonstrated abnormality of the visualized soft tissue structures of the upper abdomen. RAD/Chest 1 View (Portable) IMPRESSION: Stable appearance of intra-arterial blood pressure line. Questionable developing left retrocardiac infiltrate. Electronically Signed: Meng Flowers DO at 8:31 EDT Tel , Service support ,
[2018-05-01] MEDS: Furosemide 40 MG/4 ML Vial IV (08:16)
--- NOTE | 2018-05-01 08:30 | NURSING ---
echo in progress
--- NOTE | 2018-05-01 09:04 | CRPHASE1_ITS ---
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 Risk Factors/Lifestyle Smoking Status: Current every day smoker Hx Hypertension: Yes Hx Diabetes Mellitus Type 1: No Hx Diabetes Mellitus Type 2: No Hx Metabolic Disorders: Yes Hx Dyslipidemia: Yes Hx Obesity: Yes Height: 5 ft 8 in - BMI 30.5 Stress: Home/Family Substance Abuse: No Risk Factor for Sedentary Lifestyle: Moderate Risk Laboratory Values: Cardiac Rehab Phase I Labs Hemoglobin A1c 5.3 % (4.2-6.3) 04/30/18 16:36 Triglycerides 145 mg/dL (-199) 05/01/18 05:10 Cholesterol 162 mg/dL (200) 05/01/18 05:10 LDL Cholesterol 96 mg/dL (0-130) 05/01/18 05:10 HDL Cholesterol 37 mg/dL (40-) L 05/01/18 05:10 Phase I Education Given On:: [place], Nutrition, Antiplatelet medication, Smoking cessation Issues Affecting Care:: None Knowledge of Condition:: Yes Learning Preferences: Verbal, Written Hospital Course Presenting Symptoms:: STEMI Medical/Surgical History [place]:: Yes - STEMI CAD:: No Diabetes:: No Hypertension:: Yes Dyslipidemia:: Yes Discharge/Home/Social Eval Discharge Disposition: Home
--- NOTE | 2018-05-01 09:04 | CRPH1.INSTRU ---
General Education CAD and cardiac anatomy and function:: Patient communicates acknowledgment Explanation of diagnoses and procedures:: Patient communicates acknowledgment Sign/Symptoms of MT:: Patient communicates acknowledgment Antiplatelet therapy: Patient communicates acknowledgment Proper use of NTG-SL: Not instructed Emergency procedures and activation of EMS: Patient communicates acknowledgment Compliance of all prescribed medications: Patient communicates acknowledgment Smoking Patient Nicotine/Smoking Risk Factors Are:: Cigarettes Recommendations Include:: Smoking cessation strategies/Smoking packet, Participation in a smoking cessation program Nicotine/Smoking Response Code:: Patient communicates acknowledgment Dyslipidemia Patient Dyslipidemia Risk Factors Are:: HDL Recommendations Include:: Lipid profile provided, Reviewed NCEP/ATP guidelines, Therapeutic Lifestyle Change dietary guidelines Dyslipidemia Response Code:: Patient communicates acknowledgment Overweight/Obesity Patient Overweight/Obesity Risk Factors Are:: Obesity - > or = 30 Recommendations Include:: Weight loss of 5-10%, Reduced calorie diet, Exercise 5-7 times/week Overweight/Obesity:: Patient communicates acknowledgment Hypertension Recommendations Include:: Maintain BP <130/85, DASH dietary guidelines, Decrease/maintain normal body weight, Moderation of ETOH Hypertension:: Patient communicates acknowledgment Diabetes Patient Diabetes Risk Factors Are:: No documented hx of diabetes Metabolic Syndrome Patient Metabolic Syndrome Risk Factors Are [3 of 5]:: Waist circumference > 35 [female] or 40 [male], Hypertension, Low HDL <40 [male] or < 50 [female] Recommendations Include:: Reinforce compliance to risk factor modifications, Encouraged follow-up with Primary Care Physician Metabolic Syndrome Response Code:: Patient communicates acknowledgment Sedentary Patient Sedentary Risk Factors Are:: Lack of regular exercise Recommendations Include:: Aerobic exercise 5-7 times/week for 20-30 minutes continuously, Benefits of regular exercise, Discussed home walking program, Monitored Outpatient Cardiac Rehab Sedentary Response Code:: Patient communicates acknowledgment Stress Recommendations Include:: Identification of stressors, and assessment of coping skills, Stress management techniques Stress Response Code:: Patient communicates acknowledgment
--- NOTE | 2018-05-01 09:46 | CASEMGMT ---
Addendum entered by Patrice Helms 05/01/18 10:32: Brillinta may be prescribed on dc. Pt does not have prescription coverage. [place] Brillinta [place] through [employer]. Per [place] rep Ruperto Hassan, assistance could be available if yearly income is <$[phone] for couple. Explained program to . She would like to speak with her re: application. Reviewed application with and need for certain documentation. Offered to review with when returns to room to speak with him. -Savings card for $200 discount available on dc and form can be taken to cardiology office for completion and faxing if needed. Original Note: KAYLA CM Admission assessment: PCP: none. PCP list given. Discussed following up with cardiology and pulmonology. Pt states he will be able to follow up as recommended. Insurance: [employer] [facility]: [facility] Prescription coverage: none, pt did not have medications prior to admission. Will need to evaluate cost of prescriptions on dc. Living Arrangements: Lives with his in two story home, 4 steps into home, 1st floor bedroom/bath setup. DME: none Intro role of CM to patient and his . Pt states he was independent prior to this admission. No use of DME. DC PLAN: Home on dc
[2018-05-01] MEDS: TICAGRELOR 90 MG TABLET PO ×2 (09:58→21:22)
[2018-05-01] MEDS: Carvedilol 3.125 MG TABLET PO ×2 (09:58→21:22)
[2018-05-01] MEDS: Famotidine 20 MG Tablet PO ×2 (09:58→21:23)
--- NOTE | 2018-05-01 10:00 | EKG12_ITS ---
Test Reason : POST STEMI Blood Pressure : / mmHG Vent. Rate : 115 BPM Atrial Rate : 115 BPM P-R Int : 156 ms QRS Dur : 086 ms QT Int : 330 ms P-R-T Axes : 054 026 072 degrees QTc Int : 456 ms Sinus tachycardia Septal infarct , age undetermined Abnormal ECG When compared with ECG of 30-APR-2018 09:47, MANUAL COMPARISON REQUIRED, DATA IS UNCONFIRMED Confirmed by JAGUAR HERNADEZ, LUZMARIA ([id number]), scientific editor ION LOPEZ ([id number]) on 05/11/2018 4:08:55 PM Referred By: VIKI Confirmed By:LUZMARIA MONTESINOS MD
--- NOTE | 2018-05-01 11:07 | PCM.CON.CC ---
Problem List (1) Atherosclerotic heart disease of [place] coronary artery with unstable angina pectoris Status: Acute Qualifiers: [place] vs. transplanted heart: [place] heart Qualified Code(s): I25.110 - Atherosclerotic heart disease of [place] coronary artery with unstable angina pectoris Comment: PTCA and SAMANTHA to proximal LAD using thrombectomy followed by POBA, followed by 4.0 X 16 mm Promus Synergy; SAMANTHA to 100% stenosed mid LAD: 2.5 X 24 Promus Synergy; SAMANTHA to 85% stenosed distal LAD : 2.5 X 24 Promus Synergy. (2) Stented coronary artery Status: Acute Comment: PTCA and SAMANTHA to proximal LAD using thrombectomy followed by POBA, followed by 4.0 X 16 mm Promus Synergy; SAMANTHA to 100% stenosed mid LAD: 2.5 X 24 Promus Synergy; SAMANTHA to 85% stenosed distal LAD : 2.5 X 24 Promus Synergy. (3) ST elevation myocardial infarction (STEMI) of anterior wall Status: Acute (4) Tobacco use Status: Chronic (5) HTN (hypertension) Status: Chronic Qualifiers: Hypertension type: essential hypertension Qualified Code(s): I10 - Essential (primary) hypertension (6) HLD (hyperlipidemia) Status: Chronic Qualifiers: Hyperlipidemia type: unspecified Qualified Code(s): E78.5 - Hyperlipidemia, unspecified (7) Chest pain Status: Acute Reason for Consult Date of Consultation: 05/01/18 Reason for Consultation: Hypoxia History of Present Illness: The patient is a 47 year old M, with past medical history listed below, who presented to [facility] on 04/30/2018 secondary to midsternal chest pressure with radiation to his back, associated dyspnea, diaphoresis and waxing and waning symptomatology. Patient reportedly had gone to the urgent care center complaining of similar type symptoms and was sent to the emergency room for evaluation. On arrival, patient's heart rate was noted to be 127 bpm and 96% on room air. Initial labs showed a troponin of 74.4 and a STEMI was called. Patient was immediately taken to the lab and noted to have a cut off of the left anterior descending. Patient did have clot removed and stent placed. Patient was admitted to the intensive care unit with a balloon pump in place. Overnight, patient has had some decreasing saturations. Patient was noted to be requiring 2-3 L to maintain saturations. Patient had tolerated balloon pump well and states that he is subjectively improved compared to previous day. Patient felt that his dyspnea was okay unless I move. Patient is denying any chest pain at this time. Patient feels his diaphoresis has resolved. Patient does report smoking approximately 20 self rolled cigarettes per day. Patient is never used an inhaler and is never seen a english professor previously. Patient denies any history of asthma. Patient does not have any family history for cystic fibrosis that he is aware of. 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 Patient is currently denying any nausea, vomiting or diarrhea. Patient does report generalized stiffness that he attributes to lying flat. Review of systems otherwise negative x10 systems. Past Medical History Past Medical History (Chronic Problems): Chronic Problems (Last Updated 04/30/18 @ 16:41 by Hina Pruett) Tobacco use (Chronic) HTN (hypertension) (Chronic) HLD (hyperlipidemia) (Chronic) Medical History: Medical History (Last Updated 04/30/18 @ 16:41 by Hina Pruett) Atherosclerotic heart disease of [place] coronary artery with unstable angina pectoris (Acute) Onset Date: 04/30/18 I25.110 PTCA and SAMANTHA to proximal LAD using thrombectomy followed by POBA, followed by 4.0 X 16 mm Promus Synergy; SAMANTHA to 100% stenosed mid LAD: 2.5 X 24 Promus Synergy; SAMANTHA to 85% stenosed distal LAD : 2.5 X [address] elevation myocardial infarction (STEMI) of anterior wall (Acute) I21.09 Tobacco use (Chronic) Z72.0 HTN (hypertension) (Chronic) I10 Chest pain (Acute) R07.9 Allergies No Known Allergies Allergy (Verified 04/30/18 10:01) Home Medications: Ambulatory Orders Medication Instructions Recorded NK 04/30/18 Surgical History: Surgical History (Last Updated 04/30/18 @ 16:41 by Hina Pruett) Stented coronary artery (Acute) Onset Date: 04/30/18 Z95.5 PTCA and SAMANTHA to proximal LAD using thrombectomy followed by POBA, followed by 4.0 X 16 mm Promus Synergy; SAMANTHA to 100% stenosed mid LAD: 2.5 X 24 Promus Synergy; SAMANTHA to 85% stenosed distal LAD : 2.5 X 24 Promus Synergy. Surgical History: no surgical history Psychiatric History: No pertinent psych hx Lives: Spouse/ Significant Other, With Family Smoking Status: Current every day smoker Tobacco Use: Cigarettes Alcohol: None Drugs: None - *Family History Maternal History Items: - - Patient denies any marked maternal or paternal family history including heart disease, diabetes, cancer. Paternal History Items: - - Patient denies any marked maternal or paternal family history including heart disease, diabetes, cancer. Review of Systems Comment: See HPI Patient Problems: Active and Suspected Problems (Last Updated 04/30/18 @ 16:41 by Hina Pruett) Atherosclerotic heart disease of [place] coronary artery with unstable angina pectoris (Acute 04/30/18) PTCA and SAMANTHA to proximal LAD using thrombectomy followed by POBA, followed by 4.0 X 16 mm Promus Synergy; SAMANTHA to 100% stenosed mid LAD: 2.5 X 24 Promus Synergy; SAMANTHA to 85% stenosed distal LAD : 2.5 X 24 Promus Synergy. Stented coronary artery (Acute 04/30/18) PTCA and SAMANTHA to proximal LAD using thrombectomy followed by POBA, followed by 4.0 X 16 mm Promus Synergy; SAMANTHA to 100% stenosed mid LAD: 2.5 X 24 Promus Synergy; SAMANTHA to 85% stenosed distal LAD : 2.5 X [address] elevation myocardial infarction (STEMI) of anterior wall (Acute) Objective: Chest x-ray was personally reviewed. This shows no acute infiltrates or pleural effusion. Patient does have some increased hilar fullness today compared to previous. Intra-aortic balloon pump is in appropriate position. Bedside evaluation of echocardiogram shows an ejection fraction of approximately 25% with focal wall motion abnormality. Formal interpretation is still pending. - Physical Exam General: Alert, Oriented x3, Cooperative, - - Mild conversational dyspnea. Appears stated age. HEENT: Atraumatic, PERRLA, EOMI, Normocephalic, - - No scleral icterus or injection noted. Oral: Moist Mucosa, No Gingival or Mucosal Lesions/ Ulcerations, - - [place] 3 Neck: Supple, No Nodes, Trachea Midline, JVD, Right Lungs: No rhonchi, No wheeze, Diminished, Rales - Posterior bases, - - Symmetric expansion. No dullness to percussion. Cardiovascular: Normal S1, Normal S2, No murmurs, No rub noted, No Gallop, Tachycardic Abdomen: Bowel Sounds Present, Soft, Non Tender, Non-Distended Extremities: No clubbing, No cyanosis, No edema, Capillary Refill Less than 3 Seconds Skin: No rashes, No breakdown Musculoskeletal: No Tenderness to Palpation of Joints or Extremities, No Muscle Wasting Lymphatic: No Cervical, Supraclavicular, or Inguinal Adenopathy Neurological: Cranial nerves II-XII grossly intact, Neuro grossly intact - Limited exam secondary to balloon pump with movement restrictions Psych/Mental Status: Alert and oriented to time, place, person, mood and affect Vital Signs Temp Pulse Resp BP Pulse Ox 37.3 C 104 H 27 H 103/78 88 05/01/18 07:00 05/01/18 11:00 05/01/18 11:00 05/01/18 11:00 05/01/18 08:00 Oxygen Flow Rate (L/min) 2 Oxygen Delivery Method Nasal Cannula Weight: 88 kg Body Mass Index (BMI) 29.0 Intake and Output for Last 24 Hours 04/29/18 04/30/18 05/01/18 23:59 23:59 23:59 Intake Total 800 / 800 1128 / 1128 Output Total 2268 / 2268 1725 / 1725 Balance -1468 / -1468 -597 / -597 Laboratory Tests Past 24 Hrs 04/30/18 04/30/18 04/30/18 09:48 10:00 12:20 WBC RBC Hgb Hct MCV MCH MCHC RDW RDW Differential Plt Count MPV APTT Activated Clotting Time 202 H Sodium Potassium Chloride Carbon Dioxide Anion Gap BUN Creatinine Estim Creat Clear Calc Est GFR (MDRD) Af Amer Est GFR (MDRD) Non-Af BUN/Creatinine Ratio Glucose Hemoglobin A1c Calcium Magnesium 1.6 Troponin I Triglycerides Cholesterol LDL Cholesterol VLDL Cholesterol HDL Cholesterol Urine Opiates Screen Urine Methadone Screen Ur Barbiturates Screen Ur Phencyclidine Scrn Ur Amphetamines Screen U Methamphetamin-MDMA U Benzodiazepines Scrn Urine Cocaine Screen U Cannabinoids Screen Ur Drug Screen Comment MRSA (PCR) Negative 04/30/18 04/30/18 04/30/18 13:00 13:50 16:36 WBC RBC Hgb Hct MCV MCH MCHC RDW RDW Differential Plt Count MPV APTT Activated Clotting Time Sodium Potassium Chloride Carbon Dioxide Anion Gap BUN Creatinine Estim Creat Clear Calc Est GFR (MDRD) Af Amer Est GFR (MDRD) Non-Af BUN/Creatinine Ratio Glucose Hemoglobin A1c Calcium Magnesium Troponin I > 200.000 H* 172.000 H* Triglycerides Cholesterol LDL Cholesterol VLDL Cholesterol HDL Cholesterol Urine Opiates Screen NEGATIVE Urine Methadone Screen NEGATIVE Ur Barbiturates Screen NEGATIVE Ur Phencyclidine Scrn NEGATIVE Ur Amphetamines Screen NEGATIVE U Methamphetamin-MDMA NEGATIVE U Benzodiazepines Scrn NEGATIVE Urine Cocaine Screen NEGATIVE U Cannabinoids Screen NEGATIVE Ur Drug Screen Comment MRSA (PCR) 04/30/18 04/30/18 04/30/18 16:36 20:05 22:55 WBC RBC Hgb Hct MCV MCH MCHC RDW RDW Differential Plt Count MPV APTT 45.5 H Activated Clotting Time Sodium Potassium Chloride Carbon Dioxide Anion Gap BUN Creatinine Estim Creat Clear Calc Est GFR (MDRD) Af Amer Est GFR (MDRD) Non-Af BUN/Creatinine Ratio Glucose Hemoglobin A1c 5.3 Calcium Magnesium Troponin I 125.000 H* Triglycerides Cholesterol LDL Cholesterol VLDL Cholesterol HDL Cholesterol Urine Opiates Screen Urine Methadone Screen Ur Barbiturates Screen Ur Phencyclidine Scrn Ur Amphetamines Screen U Methamphetamin-MDMA U Benzodiazepines Scrn Urine Cocaine Screen U Cannabinoids Screen Ur Drug Screen Comment MRSA (PCR) 05/01/18 05/01/18 05/01/18 05:10 05:10 05:10 WBC 12.9 H RBC 5.04 Hgb 15.8 Hct 44.8 MCV 88.9 MCH 31.3 MCHC 35.3 RDW 13.5 RDW Differential 43.5 Plt Count 213 MPV 10.8 APTT 54.6 H Activated Clotting Time Sodium 135 L Potassium 3.5 Chloride 100 Carbon Dioxide 26.0 Anion Gap 9 BUN 19 H Creatinine 1.10 Estim Creat Clear Calc 82.05 Est GFR (MDRD) Af Amer 93 Est GFR (MDRD) Non-Af 77 BUN/Creatinine Ratio 17.3 Glucose 121 H Hemoglobin A1c Calcium 8.2 L Magnesium Troponin I Triglycerides 145 Cholesterol 162 LDL Cholesterol 96 VLDL Cholesterol 29 HDL Cholesterol 37 L Urine Opiates Screen Urine Methadone Screen Ur Barbiturates Screen Ur Phencyclidine Scrn Ur Amphetamines Screen U Methamphetamin-MDMA U Benzodiazepines Scrn Urine Cocaine Screen U Cannabinoids Screen Ur Drug Screen Comment MRSA (PCR) POC Glucose 05/01/18 04/30/18 06:23 16:18 POC Glucose 143 H 127 H Clinical Impression(s) from Imaging Studies Chest X-Ray 04/30/18 15:50 IMPRESSION: Intra-arterial blood pressure line ends in the proximal descending aorta. No acute cardiopulmonary findings. Electronically Signed: Luzmaria Zelaya MD at 16:09 EDT , Service support , Chest X-Ray 05/01/18 07:42 IMPRESSION: Stable appearance of intra-arterial blood pressure line. Questionable developing left retrocardiac infiltrate. Electronically Signed: Meng Flowers DO at 8:31 EDT Tel , Service support , Assessment/Plan Active and Suspected Problems (Last Updated 04/30/18 @ 16:41 by Hina Pruett) Atherosclerotic heart disease of [place] coronary artery with unstable angina pectoris (Acute 04/30/18) PTCA and SAMANTHA to proximal LAD using thrombectomy followed by POBA, followed by 4.0 X 16 mm Promus Synergy; SAMANTHA to 100% stenosed mid LAD: 2.5 X 24 Promus Synergy; SAMANTHA to 85% stenosed distal LAD : 2.5 X 24 Promus Synergy. Stented coronary artery (Acute 04/30/18) PTCA and SAMANTHA to proximal LAD using thrombectomy followed by POBA, followed by 4.0 X 16 mm Promus Synergy; SAMANTHA to 100% stenosed mid LAD: 2.5 X 24 Promus Synergy; SAMANTHA to 85% stenosed distal LAD : 2.5 X [address] elevation myocardial infarction (STEMI) of anterior wall (Acute) RECOMMENDATIONS: 1. Await response to Lasix 2. Initiate bronchodilator therapy 3. Cardiovascular optimization per cardiology 4. Defer balloon pump removal to cardiology 5. Walking oximetry prior to discharge 6. Outpatient pulmonary function tests IMPRESSIONS: 1. Hypoxia Medical suspicion for atelectasis versus acute systolic congestive heart failure as an etiology. Patient does have a history of smoking non-filtered cigarettes for an extended period of time. Patient also was noted to have a hemoglobin of almost 18 on presentation, so exertional hypoxemia chronically cannot be excluded. Patient should have a walking oximetry prior to discharge. Outpatient pulmonary function tests would be appropriate for quantification and clarification of lung function. She is should have a walking oximetry prior to discharge. Incentive spirometer will be encouraged. 2. Acute systolic congestive heart failure secondary to acute anterior ST elevation [place] status post stent Patient currently with intra-aortic balloon pump. Patient appears to have had worsening in EF compared to heart catheterization. Significant troponin leak was noted. Patient is on appropriate medical therapy. Defer to cardiology for optimization. Chest x-ray shows appropriate placement of intra-aortic balloon pump. Patient being followed on telemetry. 3. Hypertension/hyperlipidemia/tobacco abuse Complicates care, management, recovery and prognosis. Patient currently anticoagulated with IV heparin. Encourage cessation of tobacco. Patient's hemoglobin A1c was 5.3, but may have some hyperglycemia secondary to stress response. Code Visit Inpatient E&M: 25439 Init Hosp L3
--- NOTE | 2018-05-01 11:15 | CON.PCM_ITS ---
Problem List (1) Atherosclerotic heart disease of [place] coronary artery with unstable angina pectoris Status: Acute Qualifiers: [place] vs. transplanted heart: [place] heart Qualified Code(s): I25.110 - Atherosclerotic heart disease of [place] coronary artery with unstable angina pectoris Comment: PTCA and SAMANTHA to proximal LAD using thrombectomy followed by POBA, followed by 4.0 X 16 mm Promus Synergy; SAMANTHA to 100% stenosed mid LAD: 2.5 X 24 Promus Synergy; SAMANTHA to 85% stenosed distal LAD : 2.5 X 24 Promus Synergy. (2) Stented coronary artery Status: Acute Comment: PTCA and SAMANTHA to proximal LAD using thrombectomy followed by POBA, followed by 4.0 X 16 mm Promus Synergy; SAMANTHA to 100% stenosed mid LAD: 2.5 X 24 Promus Synergy; SAMANTHA to 85% stenosed distal LAD : 2.5 X 24 Promus Synergy. (3) ST elevation myocardial infarction (STEMI) of anterior wall Status: Acute (4) Tobacco use Status: Chronic (5) HTN (hypertension) Status: Chronic Qualifiers: Hypertension type: essential hypertension Qualified Code(s): I10 - Essential (primary) hypertension (6) HLD (hyperlipidemia) Status: Chronic Qualifiers: Hyperlipidemia type: unspecified Qualified Code(s): E78.5 - Hyperlipidemia, unspecified (7) Chest pain Status: Acute Reason for Consult Date of Consultation: 05/01/18 Reason for Consultation: Hypoxia History of Present Illness: The patient is a 47 year old M, with past medical history listed below, who presented to [facility] on 04/30/2018 secondary to midsternal chest pressure with radiation to his back, associated dyspnea, diaphoresis and waxing and waning symptomatology. Patient reportedly had gone to the urgent care center complaining of similar type symptoms and was sent to the emergency room for evaluation. On arrival, patient's heart rate was noted to be 127 bpm and 96% on room air. Initial labs showed a troponin of 74.4 and a STEMI was called. Patient was immediately taken to the lab and noted to have a cut off of the left anterior descending. Patient did have clot removed and stent placed. Patient was admitted to the intensive care unit with a balloon pump in place. Overnight, patient has had some decreasing saturations. Patient was noted to be requiring 2-3 L to maintain saturations. Patient had tolerated balloon pump well and states that he is subjectively improved compared to previous day. Patient felt that his dyspnea was okay unless I move. Patient is denying any chest pain at this time. Patient feels his diaphoresis has resolved. Patient does report smoking approximately 20 self rolled cigarettes per day. 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 Patient denies any history of asthma. Patient does not have any family history for cystic fibrosis that he is aware of. 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 Patient is currently denying any nausea, vomiting or diarrhea. Patient does report generalized stiffness that he attributes to lying flat. Review of systems otherwise negative x10 systems. Past Medical History Past Medical History (Chronic Problems): Chronic Problems (Last Updated 04/30/18 @ 16:41 by Hina Pruett) Tobacco use (Chronic) HTN (hypertension) (Chronic) HLD (hyperlipidemia) (Chronic) Medical History: Medical History (Last Updated 04/30/18 @ 16:41 by Hina Pruett) Atherosclerotic heart disease of [place] coronary artery with unstable angina pectoris (Acute) Onset Date: 04/30/18 I25.110 PTCA and SAMANTHA to proximal LAD using thrombectomy followed by POBA, followed by 4.0 X 16 mm Promus Synergy; SAMANTHA to 100% stenosed mid LAD: 2.5 X 24 Promus Synergy; SAMANTHA to 85% stenosed distal LAD : 2.5 X [address] elevation myocardial infarction (STEMI) of anterior wall (Acute) I21.09 Tobacco use (Chronic) Z72.0 HTN (hypertension) (Chronic) I10 Chest pain (Acute) R07.9 Allergies No Known Allergies Allergy (Verified 04/30/18 10:01) Home Medications: Ambulatory Orders Medication Instructions Recorded NK 04/30/18 Surgical History: Surgical History (Last Updated 04/30/18 @ 16:41 by Hina Pruett) Stented coronary artery (Acute) Onset Date: 04/30/18 Z95.5 PTCA and SAMANTHA to proximal LAD using thrombectomy followed by POBA, followed by 4.0 X 16 mm Promus Synergy; SAMANTHA to 100% stenosed mid LAD: 2.5 X 24 Promus Synergy; SAMANTHA to 85% stenosed distal LAD : 2.5 X 24 Promus Synergy. Surgical History: no surgical history Psychiatric History: No pertinent psych hx Lives: Spouse/ Significant Other, With Family Smoking Status: Current every day smoker Tobacco Use: Cigarettes Alcohol: None Drugs: None - *Family History Maternal History Items: - - Patient denies any marked maternal or paternal family history including heart disease, diabetes, cancer. Paternal History Items: - - Patient denies any marked maternal or paternal family history including heart disease, diabetes, cancer. Review of Systems Comment: See HPI Patient Problems: Active and Suspected Problems (Last Updated 04/30/18 @ 16:41 by Hina Pruett) Atherosclerotic heart disease of [place] coronary artery with unstable angina pectoris (Acute 04/30/18) PTCA and SAMANTHA to proximal LAD using thrombectomy followed by POBA, followed by 4.0 X 16 mm Promus Synergy; SAMANTHA to 100% stenosed mid LAD: 2.5 X 24 Promus Synergy; SAMANTHA to 85% stenosed distal LAD : 2.5 X 24 Promus Synergy. Stented coronary artery (Acute 04/30/18) PTCA and SAMANTHA to proximal LAD using thrombectomy followed by POBA, followed by 4.0 X 16 mm Promus Synergy; SAMANTHA to 100% stenosed mid LAD: 2.5 X 24 Promus Synergy; SAMANTHA to 85% stenosed distal LAD : 2.5 X [address] elevation myocardial infarction (STEMI) of anterior wall (Acute) Objective: Chest x-ray was personally reviewed. This shows no acute infiltrates or pleural effusion. Patient does have some increased hilar fullness today compared to previous. Intra-aortic balloon pump is in appropriate position. Bedside evaluation of echocardiogram shows an ejection fraction of approximately 25% with focal wall motion abnormality. Formal interpretation is still pending. - Physical Exam General: Alert, Oriented x3, Cooperative, - - Mild conversational dyspnea. Appears stated age. HEENT: Atraumatic, PERRLA, EOMI, Normocephalic, - - No scleral icterus or injection noted. Oral: Moist Mucosa, No Gingival or Mucosal Lesions/ Ulcerations, - - [place] 3 Neck: Supple, No Nodes, Trachea Midline, JVD, Right Lungs: No rhonchi, No wheeze, Diminished, Rales - Posterior bases, - - Symmetric expansion. No dullness to percussion. Cardiovascular: Normal S1, Normal S2, No murmurs, No rub noted, No Gallop, Tachycardic Abdomen: Bowel Sounds Present, Soft, Non Tender, Non-Distended Extremities: No clubbing, No cyanosis, No edema, Capillary Refill Less than 3 Seconds Skin: No rashes, No breakdown Musculoskeletal: No Tenderness to Palpation of Joints or Extremities, No Muscle Wasting Lymphatic: No Cervical, Supraclavicular, or Inguinal Adenopathy Neurological: Cranial nerves II-XII grossly intact, Neuro grossly intact - Limited exam secondary to balloon pump with movement restrictions Psych/Mental Status: Alert and oriented to time, place, person, mood and affect Vital Signs Temp Pulse Resp BP Pulse Ox 37.3 C 104 H 27 H 103/78 88 05/01/18 07:00 05/01/18 11:00 05/01/18 11:00 05/01/18 11:00 05/01/18 08:00 Oxygen Flow Rate (L/min) 2 Oxygen Delivery Method Nasal Cannula Weight: 88 kg Body Mass Index (BMI) 29.0 Intake and Output for Last 24 Hours 04/29/18 04/30/18 05/01/18 23:59 23:59 23:59 Intake Total 800 / 800 1128 / 1128 Output Total 2268 / 2268 1725 / 1725 Balance -1468 / -1468 -597 / -597 Laboratory Tests Past 24 Hrs 04/30/18 04/30/18 04/30/18 09:48 10:00 12:20 WBC RBC Hgb Hct MCV MCH MCHC RDW RDW Differential Plt Count MPV APTT Activated Clotting Time 202 H Sodium Potassium Chloride Carbon Dioxide Anion Gap BUN Creatinine Estim Creat Clear Calc Est GFR (MDRD) Af Amer Est GFR (MDRD) Non-Af BUN/Creatinine Ratio Glucose Hemoglobin A1c Calcium Magnesium 1.6 Troponin I Triglycerides Cholesterol LDL Cholesterol VLDL Cholesterol HDL Cholesterol Urine Opiates Screen Urine Methadone Screen Ur Barbiturates Screen Ur Phencyclidine Scrn Ur Amphetamines Screen U Methamphetamin-MDMA U Benzodiazepines Scrn Urine Cocaine Screen U Cannabinoids Screen Ur Drug Screen Comment MRSA (PCR) Negative 04/30/18 04/30/18 04/30/18 13:00 13:50 16:36 WBC RBC Hgb Hct MCV MCH MCHC RDW RDW Differential Plt Count MPV APTT Activated Clotting Time Sodium Potassium Chloride Carbon Dioxide Anion Gap BUN Creatinine Estim Creat Clear Calc Est GFR (MDRD) Af Amer Est GFR (MDRD) Non-Af BUN/Creatinine Ratio Glucose Hemoglobin A1c Calcium Magnesium Troponin I > 200.000 H* 172.000 H* Triglycerides Cholesterol LDL Cholesterol VLDL Cholesterol HDL Cholesterol Urine Opiates Screen NEGATIVE Urine Methadone Screen NEGATIVE Ur Barbiturates Screen NEGATIVE Ur Phencyclidine Scrn NEGATIVE Ur Amphetamines Screen NEGATIVE U Methamphetamin-MDMA NEGATIVE U Benzodiazepines Scrn NEGATIVE Urine Cocaine Screen NEGATIVE U Cannabinoids Screen NEGATIVE Ur Drug Screen Comment MRSA (PCR) 04/30/18 04/30/18 04/30/18 16:36 20:05 22:55 WBC RBC Hgb Hct MCV MCH MCHC RDW RDW Differential Plt Count MPV APTT 45.5 H Activated Clotting Time Sodium Potassium Chloride Carbon Dioxide Anion Gap BUN Creatinine Estim Creat Clear Calc Est GFR (MDRD) Af Amer Est GFR (MDRD) Non-Af BUN/Creatinine Ratio Glucose Hemoglobin A1c 5.3 Calcium Magnesium Troponin I 125.000 H* Triglycerides Cholesterol LDL Cholesterol VLDL Cholesterol HDL Cholesterol Urine Opiates Screen Urine Methadone Screen Ur Barbiturates Screen Ur Phencyclidine Scrn Ur Amphetamines Screen U Methamphetamin-MDMA U Benzodiazepines Scrn Urine Cocaine Screen U Cannabinoids Screen Ur Drug Screen Comment MRSA (PCR) 05/01/18 05/01/18 05/01/18 05:10 05:10 05:10 WBC 12.9 H RBC 5.04 Hgb 15.8 Hct 44.8 MCV 88.9 MCH 31.3 MCHC 35.3 RDW 13.5 RDW Differential 43.5 Plt Count 213 MPV 10.8 APTT 54.6 H Activated Clotting Time Sodium 135 L Potassium 3.5 Chloride 100 Carbon Dioxide 26.0 Anion Gap 9 BUN 19 H Creatinine 1.10 Estim Creat Clear Calc 82.05 Est GFR (MDRD) Af Amer 93 Est GFR (MDRD) Non-Af 77 BUN/Creatinine Ratio 17.3 Glucose 121 H Hemoglobin A1c Calcium 8.2 L Magnesium Troponin I Triglycerides 145 Cholesterol 162 LDL Cholesterol 96 VLDL Cholesterol 29 HDL Cholesterol 37 L Urine Opiates Screen Urine Methadone Screen Ur Barbiturates Screen Ur Phencyclidine Scrn Ur Amphetamines Screen U Methamphetamin-MDMA U Benzodiazepines Scrn Urine Cocaine Screen U Cannabinoids Screen Ur Drug Screen Comment MRSA (PCR) POC Glucose 05/01/18 04/30/18 06:23 16:18 POC Glucose 143 H 127 H Clinical Impression(s) from Imaging Studies Chest X-Ray 04/30/18 15:50 IMPRESSION: Intra-arterial blood pressure line ends in the proximal descending aorta. No acute cardiopulmonary findings. Electronically Signed: Luzmaria Zelaya MD at 16:09 EDT , Service support , Chest X-Ray 05/01/18 07:42 IMPRESSION: Stable appearance of intra-arterial blood pressure line. Questionable developing left retrocardiac infiltrate. Electronically Signed: Meng Flowers DO at 8:31 EDT Tel , Service support , Assessment/Plan Active and Suspected Problems (Last Updated 04/30/18 @ 16:41 by Hina Pruett) Atherosclerotic heart disease of [place] coronary artery with unstable angina pectoris (Acute 04/30/18) PTCA and SAMANTHA to proximal LAD using thrombectomy followed by POBA, followed by 4.0 X 16 mm Promus Synergy; SAMANTHA to 100% stenosed mid LAD: 2.5 X 24 Promus Synergy; SAMANTHA to 85% stenosed distal LAD : 2.5 X 24 Promus Synergy. Stented coronary artery (Acute 04/30/18) PTCA and SAMANTHA to proximal LAD using thrombectomy followed by POBA, followed by 4.0 X 16 mm Promus Synergy; SAMANTHA to 100% stenosed mid LAD: 2.5 X 24 Promus Synergy; SAMANTHA to 85% stenosed distal LAD : 2.5 X [address] elevation myocardial infarction (STEMI) of anterior wall (Acute) RECOMMENDATIONS: 1. Await response to Lasix 2. Initiate bronchodilator therapy 3. Cardiovascular optimization per cardiology 4. Defer balloon pump removal to cardiology 5. Walking oximetry prior to discharge 6. Outpatient pulmonary function tests IMPRESSIONS: 1. Hypoxia Medical suspicion for atelectasis versus acute systolic congestive heart failure as an etiology. Patient does have a history of smoking non-filtered cigarettes for an extended period of time. Patient also was noted to have a hemoglobin of almost 18 on presentation, so exertional hypoxemia chronically cannot be excluded. Patient should have a walking oximetry prior to discharge. Outpatient pulmonary function tests would be appropriate for quantification and clarification of lung function. She is should have a walking oximetry prior to discharge. Incentive spirometer will be encouraged. 2. Acute systolic congestive heart failure secondary to acute anterior ST elevation AR status post stent Patient currently with intra-aortic balloon pump. Patient appears to have had worsening in EF compared to heart catheterization. Significant troponin leak was noted. Patient is on appropriate medical therapy. Defer to cardiology for optimization. Chest x-ray shows appropriate placement of intra-aortic balloon pump. Patient being followed on telemetry. 3. Hypertension/hyperlipidemia/tobacco abuse Complicates care, management, recovery and prognosis. Patient currently anticoagulated with IV heparin. Encourage cessation of tobacco. Patient's hemoglobin A1c was 5.3, but may have some hyperglycemia secondary to stress response. Code Visit Inpatient E&M: 74209 Init Hosp L3
--- NOTE | 2018-05-01 11:15 | EKG12_ITS ---
Test Reason : AM EKG Blood Pressure : / mmHG Vent. Rate : 101 BPM Atrial Rate : 101 BPM P-R Int : 150 ms QRS Dur : 082 ms QT Int : 338 ms P-R-T Axes : 052 072 059 degrees QTc Int : 438 ms Sinus tachycardia Anteroseptal infarct , possibly acute ACUTE PR / STEMI Abnormal ECG When compared with ECG of 30-APR-2018 11:36, MANUAL COMPARISON REQUIRED, DATA IS UNCONFIRMED Confirmed by JAGUAR HERNADEZ, LUZMARIA ([id number]), proposal editor ION LOPEZ ([id number]) on 05/06/2018 3:48:51 PM Referred By: VIKI Confirmed By:LUZMARIA MONTESINOS MD
[2018-05-01 12:31] LABS: Bedside Glucose 144 mg/dL (70-110)
[2018-05-01] MEDS: Aspirin 81 MG TAB.CHEW PO (12:34)
--- NOTE | 2018-05-01 12:38 | NURSING ---
kcl bolus started
[2018-05-01 12:47] LABS: Partial Thromboplast Time 47.9 Seconds (24.1-36.2)
[2018-05-01] MEDS: Ipratropium/Albuterol Sulfate 3 ML AMPUL.NEB INHALATION ×2 (13:24→19:27)
--- NOTE | 2018-05-01 13:33 | PN.CARD_ITS ---
Subjectve: Patient improved this morning, over yesterday evening when he developed some congestive heart failure. Patient also had some pleuritic type chest pain which was relieved with ibuprofen. Intruding balloon pump functioning normally, and appropriate placement by chest x-ray this morning. EKG shows normal sinus rhythm with resolving anterior ST segment elevation and Q waves anteriorly. Echocardiogram done this morning shows akinetic proximal mid anterior and apical wall motion with an overall ejection fraction around 25-30%. Telemetry showed s inus tachycardia. IV amiodarone infusing for heart rate control and hypotension. Right groin is clean/dry/intact, with no evidence of hematoma, and 2+ DP PT pulses bilaterally with balloon pump in the standby position. Peak troponin over 200 so far, trending down to 125 this morning.. Objective: Vital Signs Temp Pulse Resp BP Pulse Ox 102.1 F H 98 23 H 95/70 92 05/01/18 12:00 05/01/18 13:00 05/01/18 13:00 05/01/18 13:00 05/01/18 12:00 Oxygen Flow Rate (L/min) 2 Oxygen Delivery Method Nasal Cannula Weight: 194 lb 0.108 oz Body Mass Index (BMI) 29.0 Intake and Output for Last 24 Hours 04/29/18 04/30/18 05/01/18 23:59 23:59 23:59 Intake Total 800 / 800 1208 / 1208 Output Total 2268 / 2268 1880 / 1880 Balance -1468 / -1468 -672 / -672 General: Awake, Alert, Oriented x 3 HEENT: PERRL, EOMI, Sclera Non Icteric Neck: Supple, Good ROM, No Lymph Node Enlargement Lungs: Clear to auscultation Cardiovascular: Regular Rhythm, Normal S1, Normal S2, No Murmurs, No Rubs, No Gallops Vascular: No Carotid Bruits, Normal Femoral Pulses, Normal Radial Pulses, Normal Dorsalis Pedal Pulse, Normal Posterior Tibial Pulses Abdomen: Bowel Sounds Present, Soft, Non Tender, No HSM, No Organomegaly Extremities: No Cyanosis, No Clubbing, No edema Neurological: No Focal Motor or Sensory Deficit 04/30/18 13:50: Troponin I > 200.000 H* 04/30/18 16:36: Troponin I 172.000 H* 04/30/18 16:36: Hemoglobin A1c 5.3 04/30/18 20:05: Troponin I 125.000 H* 04/30/18 22:55: APTT 45.5 H 05/01/18 05:10: WBC 12.9 H, RBC 5.04, Hgb 15.8, Hct 44.8, MCV 88.9, MCH 31.3, MCHC 35.3, RDW 13.5, RDW Differential 43.5, Plt Count 213, MPV 10.8 05/01/18 05:10: Sodium 135 L, Potassium 3.5, Chloride 100, Carbon Dioxide 26.0, Anion Gap 9, BUN 19 H, Creatinine 1.10, Est GFR (MDRD) Af Amer 93, Est GFR (MDRD) Non-Af 77, BUN/Creatinine Ratio 17.3, Glucose 121 H, Calcium 8.2 L, Triglycerides 145, Cholesterol 162, LDL Cholesterol 96, VLDL Cholesterol 29, HDL Cholesterol 37 L 05/01/18 05:10: APTT 54.6 H 05/01/18 12:30: APTT 47.9 H Rhythm: EKG: ECHO: Stress Test: Cardiac Cath: PCI: CT Surgery: Holter monitor: EPS: PPM: CXR: Chest CT Scan: Medical Necessity - Tobacco Use Smoking Status: Current every day smoker Tobacco Use: Cigarettes Assessment/Plan 1. Coronary artery disease: Patient presents with delayed presentation anterior wall myocardial infarction with substantial clot burden in the proximal mid and distal LAD with successful emergent angioplasty and drug-eluting stenting x3 to the distal mid and proximal LAD. Intruding balloon pump placed due to severe LV dysfunction and probable impending cardiogenic shock. Patient is doing better this morning, tolerating his medicines well. Heparin drip infusion keeping PTT above 50. Troponins are trending downwards. Echocardiogram demonstrates proximal mid and apical anterior akinesis, with overall ejection fraction around 25-30%. Heart rate is improved with diuretic therapy as well as amiodarone drip given his relative hypotension. Would recommend initiating Coreg 3.125 mg p.o. twice daily, continuing Diovan, and continuing Lasix 40 mg IV daily. Would recommend continuing intruding balloon pump at least for 48 hours to assist with afterload reduction and coronary perfusion. We will decrease the interval to 1: 2 today. Patient will continue baby aspirin, Brilinta. We will continue IV amiodarone drip for a total of 24 hours at which time we will discontinue and see whether his heart rate stays where it is or increases. Patient has had no arrhythmias as of yet. Patient's chest pain last evening was probably a combination of ischemic pain as well as possible pleuritic type chest pain as it responded well to ibuprofen and was pleuritic in nature. No further chest pain today. We will continue ibuprofen as needed only. 2. LV dysfunction: Hopefully with emergent intervention, intrinsic balloon pump, medical therapy, and cardiac rehab his LV function will improve. We will repeat his echocardiogram at the conclusion of cardiac rehab. If patient develops malignant ventricular arrhythmias he may require short term amiodarone therapy to get him through cardiac rehab. May also want to consider LifeVest therapy during recovery at home. 3. Hyperlipidemia: Continue statin based medications. 4. Discussed with Dr. Amaro. Thank you very much for the opportunity to participate in the cardiac care of your patient. Code Visit Inpatient E&M: 63687 Subs Hosp L2
[2018-05-01] MEDS: Heparin Injection (Vial) 5,000 UNIT/ML VIAL IV (13:48)
[2018-05-01] MEDS: 0.9% NaCl Peripheral Flush Adult/Peds IV ×2 (13:51→15:59)
--- NOTE | 2018-05-01 15:20 | RAD_ITS ---
STUDY: X-RAY CHEST REASON FOR EXAM: Male, 47 years old. IABP migration TECHNIQUE: Single AP portable view of the chest. COMPARISON: None. FINDINGS: Subsegmental atelectasis are noted in the right and left lung bases. There is no demonstrated pleural abnormality. Normal size heart. Normal mediastinum and gaston. Normal visualized pulmonary arteries. Normal visualized aortic arch and descending thoracic aorta. Normal visualized thoracic spine. Normal visualized ribs, clavicles, and shoulders. There is no demonstrated abnormality of the visualized soft tissue structures of the upper abdomen. RAD/Chest 1 View (Portable) IMPRESSION: No demonstrated acute cardiopulmonary process. Electronically Signed: Cynthia Antonio MD at 15:42 EDT Tel , Service support ,
[2018-05-01 15:27] LABS: Absolute Lymphocyte Count 1.59 X10^3/ul (0.83-4.51); Absolute Neutrophil Count 9.1 X10^3/uL (2.0-7.7); Basophil# 0.01 X10^3/uL; Basophil% 0.1 % (0-1); Differential Indicated SCAN CRITERIA MET; Hematocrit 44.3 % (40-54); Hemoglobin 15.6 g/dl (13.0-16.5); Lymphocyte # 1.59 X10^3/ul (4.0); Lymphocyte % 12.7 % (19-41); Mean Corp Hgb Conc 35.2 g/gl (32-36); Mean Corpuscular Hgb 31.6 pg (27.0-32.0); Mean Corpuscular Volume 89.9 fL (80-94); Monocyte# 1.74 X10^3/uL; Monocyte% 13.9 % (0-10); Neutrophil # 9.13 X10^3/uL (2.7-7.7); Neutrophil % 73.2 % (47-70); POSITIVE COUNT NO; POSITIVE DIFFERENTIAL YES; POSITIVE MORPHOLOGY NO; Platelet Count 191 K/mm3 (150-450); RBC Distribution Width CV 13.5 % (11.6-14.6); RBC Distribution Width SD 44.1 fl (35.1-43.9); Red Blood Count 4.93 M/mm3 (4.6-6.2); White Blood Count 12.5 K/mm3 (4.4-11.0)
[2018-05-01 15:44] LABS: Differential Comment SCANNED
[2018-05-01] MEDS: Acetaminophen 325 MG Tablet 650 MG PO (15:57)
[2018-05-01] MEDS: DiphenhydrAMINE 25 MG Capsule PO (15:58)
--- NOTE | 2018-05-01 17:01 | NURSING ---
education re chronic illness deferred till acute phase pt illness resolving
[2018-05-01] MEDS: HEPARIN/D5w 25,000 UNITS 25,000 UNITS/250 ML IV.SOLN. 12 UNITS IV (17:44)
[2018-05-01 18:21] LABS: Bedside Glucose 107 mg/dL (70-110)
[2018-05-01] MEDS: Dext 5%-0.45% NS 1,000 ML 75 ML IV (18:56)
[2018-05-01 19:08] LABS: Partial Thromboplast Time 59.4 Seconds (24.1-36.2)
[2018-05-01] MEDS: Atorvastatin Calcium 80 MG Tablet PO (21:22)
[2018-05-01 23:41] LABS: Bedside Glucose 123 mg/dL (70-110)
[2018-05-02] VITALS (31 sets, daily range): BP systolic 90–147; BP diastolic 62–98; PULSE 92–107; RESP 16–29; TEMP 37.9–38.9; O2SAT 92–98
[2018-05-02 01:40] LABS: Partial Thromboplast Time 49.7 Seconds (24.1-36.2)
[2018-05-02] MEDS: 0.9% NaCl Peripheral Flush Adult/Peds IV ×2 (02:54→03:54)
[2018-05-02] MEDS: Heparin Injection (Vial) 5,000 UNIT/ML VIAL IV (02:55)
--- NOTE | 2018-05-02 03:00 | NURSING ---
Gave Heparin 1000 unit bolus and titrated heparin gtt to 1100 units/hr, per protocol. Next ptt ordered for 09:00.
[2018-05-02 04:14] LABS: Hemoglobin 14.7 g/dl (13.0-16.5); Mean Corpuscular Hgb 31.4 pg (27.0-32.0); Mean Corpuscular Volume 89.7 fL (80-94); Red Blood Count 4.68 M/mm3 (4.6-6.2); White Blood Count 9.4 K/mm3 (4.4-11.0)
[2018-05-02 04:15] LABS: Absolute Lymphocyte Count 1.07 X10^3/ul (0.83-4.51); Absolute Neutrophil Count 7.2 X10^3/uL (2.0-7.7); Basophil% 0.2 % (0-1); Eosinophils% 0.1 % (0-5); Lymphocyte # 1.07 X10^3/ul (4.0); Lymphocyte % 11.4 % (19-41); Mean Platelet Vol. 10.4 fl (6.2-12.0); Monocyte# 1.12 X10^3/uL; Monocyte% 11.9 % (0-10); Neutrophil # 7.16 X10^3/uL (2.7-7.7); Neutrophil % 76.3 % (47-70); POSITIVE COUNT NO; POSITIVE DIFFERENTIAL NO; POSITIVE MORPHOLOGY NO; Platelet Count 164 K/mm3 (150-450); RBC Distribution Width CV 13.5 % (11.6-14.6); RBC Distribution Width SD 43.7 fl (35.1-43.9); Scan Indicated on CBC? Y/N NO
[2018-05-02 04:16] LABS: Basophil# 0.02 X10^3/uL; Eosinophil# 0.01 X10^3/uL
[2018-05-02 04:26] LABS: Anion Gap 11 (5-15); BUN 23 mg/dL (7-18); BUN/Creat Ratio 23.9 RATIO (10-20); Calcium,Total 8.1 mg/dL (8.5-10.1); Chloride 101 mmol/L (98-107); Creatinine, Serum 0.96 mg/dL (0.70-1.30); EST Glomerular Filtration Rate 90 mL/min (>60); Est Glom Filt Rate - Afr Amer 108 mL/min (>60); Estimated Creatinine Clearance 94.01 ml/min; Glucose 122 mg/dL (74-106); Magnesium 2.5 mg/dL (1.6-2.6); Potassium 3.4 mmol/L (3.5-5.1); Sodium Level 137 mmol/L (136-145)
[2018-05-02 04:35] LABS: Phosphorus 1.5 mg/dL (2.5-4.9)
--- NOTE | 2018-05-02 05:25 | RAD_ITS ---
STUDY: X-RAY CHEST REASON FOR EXAM: Male, 47 years old. IABP placement TECHNIQUE: Single frontal view of the chest. COMPARISON: 10 and 518 FINDINGS: Stable aortic balloon pump location. Progressing bibasilar atelectasis and alveolar disease. There is no demonstrated pleural abnormality. Normal size heart. Normal mediastinum and gaston. Normal visualized pulmonary arteries. Normal visualized aortic arch and descending thoracic aorta. Normal visualized thoracic spine. Left shoulder calcific tendinitis. There is no demonstrated abnormality of the visualized soft tissue structures of the upper abdomen. RAD/Chest 1 View (Portable) IMPRESSION: Stable aortic balloon pump location. Progressing bibasilar atelectasis and alveolar disease. Electronically Signed: Jem Landers MD at 7:01 EDT Tel , Service support ,
[2018-05-02 05:41] LABS: Bedside Glucose 117 mg/dL (70-110)
[2018-05-02] MEDS: Dext 5%-0.45% NS 1,000 ML 75 ML IV (06:04)
[2018-05-02] MEDS: Ipratropium/Albuterol Sulfate 3 ML AMPUL.NEB INHALATION (06:26)
--- NOTE | 2018-05-02 06:41 | PN_ITS ---
Patient Problems: Active and Suspected Problems (Last Updated 04/30/18 @ 16:41 by Hina Pruett) Atherosclerotic heart disease of [place] coronary artery with unstable angina pectoris (Acute 04/30/18) PTCA and SAMANTHA to proximal LAD using thrombectomy followed by POBA, followed by 4.0 X 16 mm Promus Synergy; SAMANTHA to 100% stenosed mid LAD: 2.5 X 24 Promus Synergy; SAMANTHA to 85% stenosed distal LAD : 2.5 X 24 Promus Synergy. Stented coronary artery (Acute 04/30/18) PTCA and SAMANTHA to proximal LAD using thrombectomy followed by POBA, followed by 4.0 X 16 mm Promus Synergy; SAMANTHA to 100% stenosed mid LAD: 2.5 X 24 Promus Synergy; SAMANTHA to 85% stenosed distal LAD : 2.5 X [address] elevation myocardial infarction (STEMI) of anterior wall (Acute) Subjective: With no acute events overnight per self and per nursing report. Patient is off oxygen and breathing with greater ease with decreased respiratory rate and decreased tachycardia. Patient has had onset of fevers, low-grade through the evening. Repeat chest x-ray reviewed this morning with patient and only notable for atelectasis. Balloon pump site well-appearing. Patient denies any further chest discomfort or dyspnea. Patient denies fevers, chills, nausea, emesis, abdominal pain. Objective: Physical Examination: General: awake, alert, oriented x 3 and cooperative, seated upright in the ICU bed at angle, ongoing balloon pump, denies any current chest pain. Skin: normal color, turgor, no icterus, cyanosis, R groin w/ balloon pump in place. HEENT: AT/NC, EOMI, PERRLA, improved MMM. Lungs: Diminished BS BL bases, mild effort, no rales, ronchi or wheezing. Heart: Improved, regular rate and regular rhythm; no gallop, rub audible. Abdomen: soft, NTTP, ND, normal BS. Extremities: no cyanosis, clubbing, R groin w/ balloon pump sheath in place. Neurological: patient awake, alert, oriented x 3; cognitive function intact; pupils equally reactive to light and accomodation; cranial nerves II-XII grossly normal, moving all 4 extremities; however, limited movement secondary to ongoing balloon pump in place and recent catheterization, strength therefore difficult to assess but currently globally decreased. Psychiatric: affect appears normal, no acute evidence of depressive or anxiety feelings. Vitals/I&O's: Vital Signs Temp Pulse Resp BP Pulse Ox 100.8 F H 93 23 H 101/73 93 05/02/18 06:00 05/02/18 06:00 05/02/18 06:00 05/02/18 06:00 05/02/18 06:00 Oxygen Flow Rate (L/min) 2 Oxygen Delivery Method Room Air Weight: 194 lb 3.636 oz Body Mass Index (BMI) 29.0 Intake and Output for Last 24 Hours 04/30/18 05/01/18 05/02/18 23:59 23:59 23:59 Intake Total 800 / 800 2953.5 / 2953.5 703.3 / 703.3 Output Total 2268 / 2268 2726 / 2726 510 / 510 Balance -1468 / -1468 227.5 / 227.5 193.3 / 193.3 Laboratory Results 05/01/18 12:24: POC Glucose 144 H 05/01/18 12:30: APTT 47.9 H 05/01/18 15:05: WBC 12.5 H, RBC 4.93, Hgb 15.6, Hct 44.3, MCV 89.9, MCH 31.6, MCHC 35.2, RDW 13.5, RDW Differential 44.1 H, Plt Count 191, MPV 11.0, Immature Gran % (Auto) 0.100, Neut % (Auto) 73.2 H, Lymph % (Auto) 12.7 L, Clarke % (Auto) 13.9 H, Eos % (Auto) 0.0, Baso % (Auto) 0.1, Absolute Neuts (auto) 9.1 H, Absolute Lymphs (auto) 1.59, Total Counted Not Reportable, Differential Comment SCANNED 05/01/18 18:14: POC Glucose 107 05/01/18 18:50: APTT 59.4 H 05/01/18 23:37: POC Glucose 123 H 05/02/18 01:00: APTT 49.7 H 05/02/18 04:00: WBC 9.4, RBC 4.68, Hgb 14.7, Hct 42.0, MCV 89.7, MCH 31.4, MCHC 35.0, RDW 13.5, RDW Differential 43.7, Plt Count 164, MPV 10.4, Immature Gran % (Auto) 0.100, Neut % (Auto) 76.3 H, Lymph % (Auto) 11.4 L, Clarke % (Auto) 11.9 H, Eos % (Auto) 0.1, Baso % (Auto) 0.2, Absolute Neuts (auto) 7.2, Absolute Lymphs (auto) 1.07, Total Counted Not Reportable 05/02/18 04:00: Sodium 137, Potassium 3.4 L, Chloride 101, Carbon Dioxide 25.0, Anion Gap 11, BUN 23 H, Creatinine 0.96, Estim Creat Clear Calc 94.01, Est GFR (MDRD) Af Amer 108, Est GFR (MDRD) Non-Af 90, BUN/Creatinine Ratio 23.9 H, Glucose 122 H, Calcium 8.1 L, Magnesium 2.5 05/02/18 04:00: Phosphorus 1.5 L 05/02/18 05:36: POC Glucose 117 H Current Medications Acetaminophen (Tylenol) 650 mg PO Q6H PRN PRN PRN Reason: Mild Pain (0-2/10) Last Admin: 05/01/18 15:57 Dose: 650 mg Al Hydroxide/Mg Hydroxide (Mylanta Ii) 30 ml PO Q6H PRN PRN PRN Reason: Gastric burning Albuterol/Ipratropium (Duoneb) 3 ml INHALATION Q6HWA.RT [facility] Last Admin: 05/02/18 06:26 Dose: 3 ml Aspirin (Aspirin, Baby) 81 mg PO DAILY@0800 [facility] Last Admin: 05/01/18 12:34 Dose: 81 mg Atorvastatin Calcium (Lipitor) 80 mg PO QHS [facility] Last Admin: 05/01/18 21:22 Dose: 80 mg Atropine Sulfate () 0.5 mg IV UD PRN PRN Reason: HR <50 bpm Carvedilol (Coreg) 3.125 mg PO BID [facility] Last Admin: 05/01/18 21:22 Dose: 3.125 mg Diazepam (Valium) 5 mg PO Q6H PRN PRN PRN Reason: BACK SPASMS/ANXIETY Last Admin: 04/30/18 20:21 Dose: 5 mg Famotidine (Pepcid) 20 mg PO BID [facility] Last Admin: 05/01/18 21:23 Dose: 20 mg Furosemide (Lasix) 40 mg IV DAILY [facility] Heparin Sodium (Beef Lung) (Heparin 500 Unit/5 Ml (100/Ml)) 500 unit IV UD PRN PRN Reason: HEPARIN FLUSH Heparin Sodium (Porcine) (Heparin Na) 0 unit IV UD PRN; Protocol Last Admin: 05/02/18 02:55 Dose: 1,000 unit Heparin Sodium/Dextrose () 25,000 units in 250 mls @ 12 mls/hr IV .[id number] [facility]; Protocol Last Admin: 05/02/18 03:11 Dose: Not Given Dextrose/Sodium Chloride () 1,000 mls @ 75 mls/hr IV .[id number] [facility] Last Admin: 05/02/18 06:04 Dose: 75 mls/hr Potassium Phosphate 30 mm/ (Sodium Chloride) 260 mls @ 42 mls/hr IV X1 ONE Stop: 05/02/18 12:48 Ibuprofen (Motrin) 600 mg PO Q6H PRN PRN PRN Reason: MILD PAIN (1-3/10) Labetalol HCl (Trandate) 5 mg IV X1 PRN PRN Reason: SBP > 160 when pulling sheath Magnesium Hydroxide (Milk Of Magnesia) 30 ml PO DAILY PRN PRN PRN Reason: Constipation Morphine Sulfate () 4 mg IV Q4H PRN PRN PRN Reason: Moderate back pain (3-5/10) Last Admin: 04/30/18 20:21 Dose: 4 mg Ondansetron HCl (Zofran) 4 mg IV Q8H PRN PRN PRN Reason: NAUSEA Promethazine HCl (Phenergan) 12.5 mg IV Q6H PRN PRN PRN Reason: NAUSEA/VOMITING Sodium Chloride () 500 ml IV BOLUS PRN PRN Reason: VASO-VAGAL PROTOCOL Sodium Chloride () 5 - 30 ml IV UD PRN PRN Reason: SALINE FLUSH Last Admin: 05/02/18 03:54 Dose: 10 ml Ticagrelor (Brilinta) 90 mg PO BID [facility] Last Admin: 05/01/18 21:22 Dose: 90 mg Valsartan (Diovan) 80 mg PO DAILY [facility] Last Admin: 05/01/18 09:58 Dose: 80 mg Medical Necessity - Tobacco Use Smoking Status: Current every day smoker Tobacco Use: Cigarettes Assessment/Plan All Active Problems (Last Updated 04/30/18 @ 16:41 by Hina Pruett) Atherosclerotic heart disease of [place] coronary artery with unstable angina pectoris (Acute 04/30/18) Stented coronary artery (Acute 04/30/18) ST elevation myocardial infarction (STEMI) of anterior wall (Acute) Chest pain (Acute) The patient is a 47 y/o M w/ PMHx: Tobacco use who presents to the [facility] ED on 04/30/18 with history of onset midsternal chest pressure, rated 11/10 with radiation toward the back between his scapular with associated dyspnea, diaphoresis but no nausea or emesis starting this past Friday, intermittent, waxing and waning he notes, worse with any exertion but more severe episode ~ 20-30 minutes prior to ED arrival. (1) Chest Pain secondary to Acute Anterior STEMI: ED presentation work-up included 98, heart rate 127, BP 120/80, respiratory rate 20, 96% on room air, BC with WC 12.5, hemoglobin 17.6, platelet 199 with left shift, unremarkable coags except activated clotting time 202, BMP with glucose 133, troponin 74.4, urine drug screen negative, EKG w/ sinus rhythm with ST segment elevation in the ante rior leads. STEMI immediately called and patient administered Brilinta load, heparin bolus, aspirin therapy. Cardiac Catheterization w/ single-vessel CAD of the LAD with successful PTCA/SAMANTHA of the proximal LAD using thrombectomy in addition to the mid and distal LAD with continued balloon pump in place with transition to the ICU following. Noted evidence of severe segmented LV systolic dysfunction with LVEF 45%. Discussion with cardiology and given patient's notable findings on cardiac catheterization continued balloon pump in place with transition per cardiology discretion with continued aspirin, Brilinta, Integrilin drip to completion now transitioned back to heparin drip per Cardiology discretion until balloon pump removal, high-dose statin with AM FLP w/ TG 145, TChol 162, LDL 96, LDL 29, HDL 37, Coreg, losartan. ECHO with EF 25- 30%, stage I diastolic dysfunction, unable to estimate RV systolic pressure due to inadequate jet with pulmonary artery pressure likely normal, severely hy pokinetic basal anterior septal region, akinetic mid anterior region, akinetic anterior apex, akinetic apex with no comparison study. Mag 1.6, supplemented. Phos 1.5, supplemented. Cardiac enzyme trending w/ Trop 74.4-->>200-->172-->125, repeat EKGs as needed. Aspirin, morphine, nitroglycerin. Given presentation, improvement, expect balloon pump discontinuation today but awaiting cardiology evaluation. (2) Acute Systolic CHF Exacerbation secondary to #1 (Acute Anterior STEMI) and Ischemic Cardiomyopathy: Maintained on the balloon pump, ECHO with EF 25-30%, stage I diastolic dysfunction, unable to estimate RV systolic pressure due to inadequate jet with pulmonary artery pressure likely normal, severely hypokinetic basal anterior septal region, akinetic mid anterior region, akinetic anterior apex, akinetic apex with no comparison study, maintained on aspirin, Coreg, intermittent PRN IV Lasix per cardiology discretion, diovan, brillinta and high dose statin therapy. (3) Hypoxia secondary to #1, #2 and Suspected Underlying Pulmonary Disease/Chronic COPD w/ prolonged history of Tobacco use: Desaturations w/ activity, resting upon initial transition to the ICU, weaned off oxygen overn ight 05/01-05/02, less dyspnea, continue ATC duonebs, PRN albuterol, HOB, IS parameters. Will need follow-up with pulmonary following discharge for PFTs and walking oximetry testing. Prior to current discharge once allowed when balloon pump d/c will need oxygenation testing. CXR 05/02/18 AM w/ atelectasis, has had low grade T overnight. Noted ICU intention to continue to monitor and potentially start empiric abx if continues or worsened CXR. (4) Hypertension: Continue home regimen including Coreg, Diovan, intermittent PRN IV Lasix given #2. (5) Hyperlipidemia: Continue statin regimen. AM FLP w/ TG 145, TChol 162, LDL 96, LDL 29, HDL 37. (6) Hyperglycemia: Admission glucose 133, likely stress response, hemoglobin A1c 5.3%. (7) Tobacco Abuse: Encouraged cessation, inpatient consultation per RT, deferred NR given admission presentation history. (8) Electrolyte Deficiencies: Hypokalemia 3.4, Hypophosphatemia 1.5, IV supplementation administered, repeat level in AM. (9) DVT Prophylaxis: SCDs, heparin drip. Code Visit Inpatient E&M: [id number] [facility] L3
--- NOTE | 2018-05-02 06:57 | PCM.PN.INT ---
Subjective: The patient was seen and examined at the bedside this morning. Events from the last 24 hours have been reviewed. The patient is currently febrile with a T-max over the last 24 hours of 102.1 ?F. He is currently maintaining appropriate oxygen saturations on room air. Potassium is low this morning at 3.4. Intra-aortic balloon pump remains in place with 1:2 augmentation. The patient is resting comfortably this morning without specific complaints. He denies the presence of shortness of breath or cough. Objective: The patient's most recent lab work, culture data and imaging studies have all been personally reviewed. Blood and urine cultures are currently pending. Cardiac catheterization revealed single-vessel coronary artery disease of the ostial LAD along with segmental LV systolic dysfunction with an ejection fraction of 45%. The patient underwent successful PTCA of the proximal LAD with a SAMANTHA. Surface echocardiogram revealed mild concentric LVH with an ejection fraction of 25-30% along with stage I diastolic dysfunction.` General: Alert, Oriented x3, Cooperative HEENT: Atraumatic, PERRLA, Normocephalic Oral: Moist Mucosa, No Gingival or Mucosal Lesions/ Ulcerations Neck: Supple, No Nodes, Trachea Midline Lungs: No rhonchi, No wheeze, No rales, Diminished Cardiovascular: Regular rate, Normal S1, Normal S2, No murmurs Abdomen: Bowel Sounds Present, Soft, Non Tender, Non-Distended Extremities: No clubbing, No cyanosis, No edema Skin: No breakdown Musculoskeletal: No Tenderness to Palpation of Joints or Extremities, No Muscle Wasting Lymphatic: No Cervical, Supraclavicular, or Inguinal Adenopathy Neurological: Neuro grossly intact Psych/Mental Status: Normal Affect, Appropriate Vital Signs Temp Pulse Resp BP Pulse Ox 100.8 F H 93 23 H 101/73 93 05/02/18 06:00 05/02/18 06:00 05/02/18 06:00 05/02/18 06:00 05/02/18 06:00 Oxygen Flow Rate (L/min) 2 Oxygen Delivery Method Room Air Weight: 194 lb 3.636 oz Body Mass Index (BMI) 29.0 Intake and Output for Last 24 Hours 04/30/18 05/01/18 05/02/18 23:59 23:59 23:59 Intake Total 800 / 800 2953.5 / 2953.5 703.3 / 703.3 Output Total 2268 / 2268 2726 / 2726 510 / 510 Balance -1468 / -1468 227.5 / 227.5 193.3 / 193.3 Labs (Last 48 Hours) 04/30/18 04/30/18 04/30/18 09:48 09:48 09:48 WBC 12.5 H RBC 5.56 Hgb 17.6 H Hct 49.8 MCV 89.6 MCH 31.7 MCHC 35.3 RDW 13.1 RDW Differential 42.5 Plt Count 199 MPV 11.0 Immature Gran % (Auto) 0.100 Neut % (Auto) 74.3 H Lymph % (Auto) 11.1 L [place] % (Auto) 14.3 H Eos % (Auto) 0.1 Baso % (Auto) 0.1 Absolute Neuts (auto) 9.3 H Absolute Lymphs (auto) 1.38 Total Counted Not Reportable Differential Comment COMMENT PT 13.3 INR 1.0 APTT 26.5 Activated Clotting Time Sodium 137 Potassium 3.6 Chloride 101 Carbon Dioxide 25.0 Anion Gap 11 BUN 12 Creatinine 1.07 Estim Creat Clear Calc 84.35 Est GFR (MDRD) Af Amer 96 Est GFR (MDRD) Non-Af 79 BUN/Creatinine Ratio 11.2 Glucose 133 H Hemoglobin A1c Calcium 9.1 Phosphorus Magnesium Troponin I 74.400 H* Triglycerides Cholesterol LDL Cholesterol VLDL Cholesterol HDL Cholesterol Urine Opiates Screen Urine Methadone Screen Ur Barbiturates Screen Ur Phencyclidine Scrn Ur Amphetamines Screen U Methamphetamin-MDMA U Benzodiazepines Scrn Urine Cocaine Screen U Cannabinoids Screen Ur Drug Screen Comment MRSA (PCR) POC Glucose 04/30/18 04/30/18 04/30/18 09:48 10:00 12:20 WBC RBC Hgb Hct MCV MCH MCHC RDW RDW Differential Plt Count MPV Immature Gran % (Auto) Neut % (Auto) Lymph % (Auto) [place] % (Auto) Eos % (Auto) Baso % (Auto) Absolute Neuts (auto) Absolute Lymphs (auto) Total Counted Differential Comment PT INR APTT Activated Clotting Time 202 H Sodium Potassium Chloride Carbon Dioxide Anion Gap BUN Creatinine Estim Creat Clear Calc Est GFR (MDRD) Af Amer Est GFR (MDRD) Non-Af BUN/Creatinine Ratio Glucose Hemoglobin A1c Calcium Phosphorus Magnesium 1.6 Troponin I Triglycerides Cholesterol LDL Cholesterol VLDL Cholesterol HDL Cholesterol Urine Opiates Screen Urine Methadone Screen Ur Barbiturates Screen Ur Phencyclidine Scrn Ur Amphetamines Screen U Methamphetamin-MDMA U Benzodiazepines Scrn Urine Cocaine Screen U Cannabinoids Screen Ur Drug Screen Comment MRSA (PCR) Negative POC Glucose 04/30/18 04/30/18 04/30/18 13:00 13:50 16:18 WBC RBC Hgb Hct MCV MCH MCHC RDW RDW Differential Plt Count MPV Immature Gran % (Auto) Neut % (Auto) Lymph % (Auto) [place] % (Auto) Eos % (Auto) Baso % (Auto) Absolute Neuts (auto) Absolute Lymphs (auto) Total Counted Differential Comment PT INR APTT Activated Clotting Time Sodium Potassium Chloride Carbon Dioxide Anion Gap BUN Creatinine Estim Creat Clear Calc Est GFR (MDRD) Af Amer Est GFR (MDRD) Non-Af BUN/Creatinine Ratio Glucose Hemoglobin A1c Calcium Phosphorus Magnesium Troponin I > 200.000 H* Triglycerides Cholesterol LDL Cholesterol VLDL Cholesterol HDL Cholesterol Urine Opiates Screen NEGATIVE Urine Methadone Screen NEGATIVE Ur Barbiturates Screen NEGATIVE Ur Phencyclidine Scrn NEGATIVE Ur Amphetamines Screen NEGATIVE U Methamphetamin-MDMA NEGATIVE U Benzodiazepines Scrn NEGATIVE Urine Cocaine Screen NEGATIVE U Cannabinoids Screen NEGATIVE Ur Drug Screen Comment MRSA (PCR) POC Glucose 127 H 04/30/18 04/30/18 04/30/18 16:36 16:36 20:05 WBC RBC Hgb Hct MCV MCH MCHC RDW RDW Differential Plt Count MPV Immature Gran % (Auto) Neut % (Auto) Lymph % (Auto) [place] % (Auto) Eos % (Auto) Baso % (Auto) Absolute Neuts (auto) Absolute Lymphs (auto) Total Counted Differential Comment PT INR APTT Activated Clotting Time Sodium Potassium Chloride Carbon Dioxide Anion Gap BUN Creatinine Estim Creat Clear Calc Est GFR (MDRD) Af Amer Est GFR (MDRD) Non-Af BUN/Creatinine Ratio Glucose Hemoglobin A1c 5.3 Calcium Phosphorus Magnesium Troponin I 172.000 H* 125.000 H* Triglycerides Cholesterol LDL Cholesterol VLDL Cholesterol HDL Cholesterol Urine Opiates Screen Urine Methadone Screen Ur Barbiturates Screen Ur Phencyclidine Scrn Ur Amphetamines Screen U Methamphetamin-MDMA U Benzodiazepines Scrn Urine Cocaine Screen U Cannabinoids Screen Ur Drug Screen Comment MRSA (PCR) POC Glucose 04/30/18 05/01/18 05/01/18 22:55 05:10 05:10 WBC 12.9 H RBC 5.04 Hgb 15.8 Hct 44.8 MCV 88.9 MCH 31.3 MCHC 35.3 RDW 13.5 RDW Differential 43.5 Plt Count 213 MPV 10.8 Immature Gran % (Auto) Neut % (Auto) Lymph % (Auto) [place] % (Auto) Eos % (Auto) Baso % (Auto) Absolute Neuts (auto) Absolute Lymphs (auto) Total Counted Differential Comment PT INR APTT 45.5 H Activated Clotting Time Sodium 135 L Potassium 3.5 Chloride 100 Carbon Dioxide 26.0 Anion Gap 9 BUN 19 H Creatinine 1.10 Estim Creat Clear Calc 82.05 Est GFR (MDRD) Af Amer 93 Est GFR (MDRD) Non-Af 77 BUN/Creatinine Ratio 17.3 Glucose 121 H Hemoglobin A1c Calcium 8.2 L Phosphorus Magnesium Troponin I Triglycerides 145 Cholesterol 162 LDL Cholesterol 96 VLDL Cholesterol 29 HDL Cholesterol 37 L Urine Opiates Screen Urine Methadone Screen Ur Barbiturates Screen Ur Phencyclidine Scrn Ur Amphetamines Screen U Methamphetamin-MDMA U Benzodiazepines Scrn Urine Cocaine Screen U Cannabinoids Screen Ur Drug Screen Comment MRSA (PCR) POC Glucose 05/01/18 05/01/18 05/01/18 05:10 06:23 12:24 WBC RBC Hgb Hct MCV MCH MCHC RDW RDW Differential Plt Count MPV Immature Gran % (Auto) Neut % (Auto) Lymph % (Auto) [place] % (Auto) Eos % (Auto) Baso % (Auto) Absolute Neuts (auto) Absolute Lymphs (auto) Total Counted Differential Comment PT INR APTT 54.6 H Activated Clotting Time Sodium Potassium Chloride Carbon Dioxide Anion Gap BUN Creatinine Estim Creat Clear Calc Est GFR (MDRD) Af Amer Est GFR (MDRD) Non-Af BUN/Creatinine Ratio Glucose Hemoglobin A1c Calcium Phosphorus Magnesium Troponin I Triglycerides Cholesterol LDL Cholesterol VLDL Cholesterol HDL Cholesterol Urine Opiates Screen Urine Methadone Screen Ur Barbiturates Screen Ur Phencyclidine Scrn Ur Amphetamines Screen U Methamphetamin-MDMA U Benzodiazepines Scrn Urine Cocaine Screen U Cannabinoids Screen Ur Drug Screen Comment MRSA (PCR) POC Glucose 143 H 144 H 05/01/18 05/01/18 05/01/18 12:30 15:05 18:14 WBC 12.5 H RBC 4.93 Hgb 15.6 Hct 44.3 MCV 89.9 MCH 31.6 MCHC 35.2 RDW 13.5 RDW Differential 44.1 H Plt Count 191 MPV 11.0 Immature Gran % (Auto) 0.100 Neut % (Auto) 73.2 H Lymph % (Auto) 12.7 L [place] % (Auto) 13.9 H Eos % (Auto) 0.0 Baso % (Auto) 0.1 Absolute Neuts (auto) 9.1 H Absolute Lymphs (auto) 1.59 Total Counted Not Reportable Differential Comment SCANNED PT INR APTT 47.9 H Activated Clotting Time Sodium Potassium Chloride Carbon Dioxide Anion Gap BUN Creatinine Estim Creat Clear Calc Est GFR (MDRD) Af Amer Est GFR (MDRD) Non-Af BUN/Creatinine Ratio Glucose Hemoglobin A1c Calcium Phosphorus Magnesium Troponin I Triglycerides Cholesterol LDL Cholesterol VLDL Cholesterol HDL Cholesterol Urine Opiates Screen Urine Methadone Screen Ur Barbiturates Screen Ur Phencyclidine Scrn Ur Amphetamines Screen U Methamphetamin-MDMA U Benzodiazepines Scrn Urine Cocaine Screen U Cannabinoids Screen Ur Drug Screen Comment MRSA (PCR) POC Glucose 107 05/01/18 05/01/18 05/02/18 18:50 23:37 01:00 WBC RBC Hgb Hct MCV MCH MCHC RDW RDW Differential Plt Count MPV Immature Gran % (Auto) Neut % (Auto) Lymph % (Auto) [place] % (Auto) Eos % (Auto) Baso % (Auto) Absolute Neuts (auto) Absolute Lymphs (auto) Total Counted Differential Comment PT INR APTT 59.4 H 49.7 H Activated Clotting Time Sodium Potassium Chloride Carbon Dioxide Anion Gap BUN Creatinine Estim Creat Clear Calc Est GFR (MDRD) Af Amer Est GFR (MDRD) Non-Af BUN/Creatinine Ratio Glucose Hemoglobin A1c Calcium Phosphorus Magnesium Troponin I Triglycerides Cholesterol LDL Cholesterol VLDL Cholesterol HDL Cholesterol Urine Opiates Screen Urine Methadone Screen Ur Barbiturates Screen Ur Phencyclidine Scrn Ur Amphetamines Screen U Methamphetamin-MDMA U Benzodiazepines Scrn Urine Cocaine Screen U Cannabinoids Screen Ur Drug Screen Comment MRSA (PCR) POC Glucose 123 H 05/02/18 05/02/18 05/02/18 04:00 04:00 04:00 WBC 9.4 RBC 4.68 Hgb 14.7 Hct 42.0 MCV 89.7 MCH 31.4 MCHC 35.0 RDW 13.5 RDW Differential 43.7 Plt Count 164 MPV 10.4 Immature Gran % (Auto) 0.100 Neut % (Auto) 76.3 H Lymph % (Auto) 11.4 L [place] % (Auto) 11.9 H Eos % (Auto) 0.1 Baso % (Auto) 0.2 Absolute Neuts (auto) 7.2 Absolute Lymphs (auto) 1.07 Total Counted Not Reportable Differential Comment PT INR APTT Activated Clotting Time Sodium 137 Potassium 3.4 L Chloride 101 Carbon Dioxide 25.0 Anion Gap 11 BUN 23 H Creatinine 0.96 Estim Creat Clear Calc 94.01 Est GFR (MDRD) Af Amer 108 Est GFR (MDRD) Non-Af 90 BUN/Creatinine Ratio 23.9 H Glucose 122 H Hemoglobin A1c Calcium 8.1 L Phosphorus 1.5 L Magnesium 2.5 Troponin I Triglycerides Cholesterol LDL Cholesterol VLDL Cholesterol HDL Cholesterol Urine Opiates Screen Urine Methadone Screen Ur Barbiturates Screen Ur Phencyclidine Scrn Ur Amphetamines Screen U Methamphetamin-MDMA U Benzodiazepines Scrn Urine Cocaine Screen U Cannabinoids Screen Ur Drug Screen Comment MRSA (PCR) POC Glucose 05/02/18 05:36 WBC RBC Hgb Hct MCV MCH MCHC RDW RDW Differential Plt Count MPV Immature Gran % (Auto) Neut % (Auto) Lymph % (Auto) [place] % (Auto) Eos % (Auto) Baso % (Auto) Absolute Neuts (auto) Absolute Lymphs (auto) Total Counted Differential Comment PT INR APTT Activated Clotting Time Sodium Potassium Chloride Carbon Dioxide Anion Gap BUN Creatinine Estim Creat Clear Calc Est GFR (MDRD) Af Amer Est GFR (MDRD) Non-Af BUN/Creatinine Ratio Glucose Hemoglobin A1c Calcium Phosphorus Magnesium Troponin I Triglycerides Cholesterol LDL Cholesterol VLDL Cholesterol HDL Cholesterol Urine Opiates Screen Urine Methadone Screen Ur Barbiturates Screen Ur Phencyclidine Scrn Ur Amphetamines Screen U Methamphetamin-MDMA U Benzodiazepines Scrn Urine Cocaine Screen U Cannabinoids Screen Ur Drug Screen Comment MRSA (PCR) POC Glucose 117 H Clinical Impression(s) from Imaging Studies Chest X-Ray 04/30/18 15:50 IMPRESSION: Intra-arterial blood pressure line ends in the proximal descending aorta. No acute cardiopulmonary findings. Electronically Signed: Luzmaria Zelaya MD at 16:09 EDT , Service support , Chest X-Ray 05/01/18 07:42 IMPRESSION: Stable appearance of intra-arterial blood pressure line. Questionable developing left retrocardiac infiltrate. Electronically Signed: Meng Flowers DO at 8:31 EDT Tel , Service support , Chest X-Ray 05/01/18 15:20 IMPRESSION: No demonstrated acute cardiopulmonary process. Electronically Signed: Cynthia Antonio MD at 15:42 EDT Tel , Service support , ADDENDUM: 05/01/18 1623 Medical Necessity - Tobacco Use Smoking Status: Current every day smoker Tobacco Use: Cigarettes Assessment/Plan All Active Problems (Last Updated 04/30/18 @ 16:41 by Hina Pruett) Atherosclerotic heart disease of [place] coronary artery with unstable angina pectoris (Acute 04/30/18) Stented coronary artery (Acute 04/30/18) ST elevation myocardial infarction (STEMI) of anterior wall (Acute) Chest pain (Acute) RECOMMENDATIONS: 1. Continue diuretic regimen per cardiology recommendations. 2. Continue scheduled bronchodilators. 3. Encourage incentive spirometer use. 4. Perform walking oximetry study prior to consideration for discharge from the hospital. 5. Ideally, the patient needs to follow-up in the pulmonary medicine clinic so that baseline pulmonary function testing to be obtained. 6. Given the patient's fevers, will obtain repeat plain film chest x-ray to evaluate for potential infiltrate. 7. Potassium and phosphate repletion as ordered. IMPRESSIONS: 1. Acute hypoxic respiratory insufficiency Likely secondary to the acute events leading up to his hospitalization including acute systolic heart failure/ischemic cardiomyopathy coupled with atelectasis and the possibility for underlying obstructive lung disease. The patient has been weaned from supplemental oxygen at this time and is maintaining appropriate saturations on room air. Recommend continuing diuretic therapy per cardiology recommendations. Continue scheduled duo nebs accordingly. Encourage incentive spirometer use. Given that the patient also has a fever, will obtain repeat plain film chest x-ray this morning to evaluate for the presence of an evolving infiltrate. The patient undoubtedly needs to follow-up in the pulmonary medicine clinic so that baseline pulmonary function testing can be completed. 2. Ischemic cardiomyopathy status post PTCA with SAMANTHA placement to proximal LAD/acute systolic CHF Continue current supportive measures with intra-aortic balloon pump and medical management per cardiology recommendations. Intra-aortic balloon pump removal per the discretion of cardiology. 3. Fever While this may be a stress response to the patient's acute events over the last 48 hours, will obtain repeat plain film chest x-ray to evaluate for an evolving infiltrate. Blood and urine cultures have shown no growth to date. We will consider empiric antibiotic initiation if x-ray is concerning. 4. Hypokalemia/hypophosphatemia Electrolyte repletion is currently underway. Recheck level status post repletion. 5. Hypertension/hyperlipidemia/history of tobacco use Complicates care, management, recovery and prognosis. Smoking cessation is strongly advisable. This note was generated with [employer] dictation software. It may contain incorrect words, spelling, and punctuation that were not noted in checking the note before signing. Code Visit Inpatient E&M: 46277 Subs Hosp L3
--- NOTE | 2018-05-02 07:03 | PN_ITS ---
Subjective: The patient was seen and examined at the bedside this morning. Events from the last 24 hours have been reviewed. The patient is currently febrile with a T-max over the last 24 hours of 102.1 ?F. He is currently maintaining appropriate oxygen saturations on room air. Potassium is low this morning at 3.4. Intra- aortic balloon pump remains in place with 1:2 augmentation. The patient is resting comfortably this morning without specific complaints. He denies the presence of shortness of breath or cough. Objective: The patient's most recent lab work, culture data and imaging studies have all been personally reviewed. Blood and urine cultures are currently pending. Cardiac catheterization revealed single-vessel coronary artery disease of the ostial LAD along with segmental LV systolic dysfunction with an ejection fraction of 45%. The patient underwent successful PTCA of the proximal LAD with a SAMANTHA. Surface echocardiogram revealed mild concentric LVH with an ejection fraction of 25-30% along with stage I diastolic dysfunction.` General: Alert, Oriented x3, Cooperative HEENT: Atraumatic, PERRLA, Normocephalic Oral: Moist Mucosa, No Gingival or Mucosal Lesions/ Ulcerations Neck: Supple, No Nodes, Trachea Midline Lungs: No rhonchi, No wheeze, No rales, Diminished Cardiovascular: Regular rate, Normal S1, Normal S2, No murmurs Abdomen: Bowel Sounds Present, Soft, Non Tender, Non-Distended Extremities: No clubbing, No cyanosis, No edema Skin: No breakdown Musculoskeletal: No Tenderness to Palpation of Joints or Extremities, No Muscle Wasting Lymphatic: No Cervical, Supraclavicular, or Inguinal Adenopathy Neurological: Neuro grossly intact Psych/Mental Status: Normal Affect, Appropriate Vital Signs Temp Pulse Resp BP Pulse Ox 100.8 F H 93 23 H 101/73 93 05/02/18 06:00 05/02/18 06:00 05/02/18 06:00 05/02/18 06:00 05/02/18 06:00 Oxygen Flow Rate (L/min) 2 Oxygen Delivery Method Room Air Weight: 194 lb 3.636 oz Body Mass Index (BMI) 29.0 Intake and Output for Last 24 Hours 04/30/18 05/01/18 05/02/18 23:59 23:59 23:59 Intake Total 800 / 800 2953.5 / 2953.5 703.3 / 703.3 Output Total 2268 / 2268 2726 / 2726 510 / 510 Balance -1468 / -1468 227.5 / 227.5 193.3 / 193.3 Labs (Last 48 Hours) 04/30/18 04/30/18 04/30/18 09:48 09:48 09:48 WBC 12.5 H RBC 5.56 Hgb 17.6 H Hct 49.8 MCV 89.6 MCH 31.7 MCHC 35.3 RDW 13.1 RDW Differential 42.5 Plt Count 199 MPV 11.0 Immature Gran % (Auto) 0.100 Neut % (Auto) 74.3 H Lymph % (Auto) 11.1 L [place] % (Auto) 14.3 H Eos % (Auto) 0.1 Baso % (Auto) 0.1 Absolute Neuts (auto) 9.3 H Absolute Lymphs (auto) 1.38 Total Counted Not Reportable Differential Comment COMMENT PT 13.3 INR 1.0 APTT 26.5 Activated Clotting Time Sodium 137 Potassium 3.6 Chloride 101 Carbon Dioxide 25.0 Anion Gap 11 BUN 12 Creatinine 1.07 Estim Creat Clear Calc 84.35 Est GFR (MDRD) Af Amer 96 Est GFR (MDRD) Non-Af 79 BUN/Creatinine Ratio 11.2 Glucose 133 H Hemoglobin A1c Calcium 9.1 Phosphorus Magnesium Troponin I 74.400 H* Triglycerides Cholesterol LDL Cholesterol VLDL Cholesterol HDL Cholesterol Urine Opiates Screen Urine Methadone Screen Ur Barbiturates Screen Ur Phencyclidine Scrn Ur Amphetamines Screen U Methamphetamin-MDMA U Benzodiazepines Scrn Urine Cocaine Screen U Cannabinoids Screen Ur Drug Screen Comment MRSA (PCR) POC Glucose 04/30/18 04/30/18 04/30/18 09:48 10:00 12:20 WBC RBC Hgb Hct MCV MCH MCHC RDW RDW Differential Plt Count MPV Immature Gran % (Auto) Neut % (Auto) Lymph % (Auto) [place] % (Auto) Eos % (Auto) Baso % (Auto) Absolute Neuts (auto) Absolute Lymphs (auto) Total Counted Differential Comment PT INR APTT Activated Clotting Time 202 H Sodium Potassium Chloride Carbon Dioxide Anion Gap BUN Creatinine Estim Creat Clear Calc Est GFR (MDRD) Af Amer Est GFR (MDRD) Non-Af BUN/Creatinine Ratio Glucose Hemoglobin A1c Calcium Phosphorus Magnesium 1.6 Troponin I Triglycerides Cholesterol LDL Cholesterol VLDL Cholesterol HDL Cholesterol Urine Opiates Screen Urine Methadone Screen Ur Barbiturates Screen Ur Phencyclidine Scrn Ur Amphetamines Screen U Methamphetamin-MDMA U Benzodiazepines Scrn Urine Cocaine Screen U Cannabinoids Screen Ur Drug Screen Comment MRSA (PCR) Negative POC Glucose 04/30/18 04/30/18 04/30/18 13:00 13:50 16:18 WBC RBC Hgb Hct MCV MCH MCHC RDW RDW Differential Plt Count MPV Immature Gran % (Auto) Neut % (Auto) Lymph % (Auto) [place] % (Auto) Eos % (Auto) Baso % (Auto) Absolute Neuts (auto) Absolute Lymphs (auto) Total Counted Differential Comment PT INR APTT Activated Clotting Time Sodium Potassium Chloride Carbon Dioxide Anion Gap BUN Creatinine Estim Creat Clear Calc Est GFR (MDRD) Af Amer Est GFR (MDRD) Non-Af BUN/Creatinine Ratio Glucose Hemoglobin A1c Calcium Phosphorus Magnesium Troponin I > 200.000 H* Triglycerides Cholesterol LDL Cholesterol VLDL Cholesterol HDL Cholesterol Urine Opiates Screen NEGATIVE Urine Methadone Screen NEGATIVE Ur Barbiturates Screen NEGATIVE Ur Phencyclidine Scrn NEGATIVE Ur Amphetamines Screen NEGATIVE U Methamphetamin-MDMA NEGATIVE U Benzodiazepines Scrn NEGATIVE Urine Cocaine Screen NEGATIVE U Cannabinoids Screen NEGATIVE Ur Drug Screen Comment MRSA (PCR) POC Glucose 127 H 04/30/18 04/30/18 04/30/18 16:36 16:36 20:05 WBC RBC Hgb Hct MCV MCH MCHC RDW RDW Differential Plt Count MPV Immature Gran % (Auto) Neut % (Auto) Lymph % (Auto) [place] % (Auto) Eos % (Auto) Baso % (Auto) Absolute Neuts (auto) Absolute Lymphs (auto) Total Counted Differential Comment PT INR APTT Activated Clotting Time Sodium Potassium Chloride Carbon Dioxide Anion Gap BUN Creatinine Estim Creat Clear Calc Est GFR (MDRD) Af Amer Est GFR (MDRD) Non-Af BUN/Creatinine Ratio Glucose Hemoglobin A1c 5.3 Calcium Phosphorus Magnesium Troponin I 172.000 H* 125.000 H* Triglycerides Cholesterol LDL Cholesterol VLDL Cholesterol HDL Cholesterol Urine Opiates Screen Urine Methadone Screen Ur Barbiturates Screen Ur Phencyclidine Scrn Ur Amphetamines Screen U Methamphetamin-MDMA U Benzodiazepines Scrn Urine Cocaine Screen U Cannabinoids Screen Ur Drug Screen Comment MRSA (PCR) POC Glucose 04/30/18 05/01/18 05/01/18 22:55 05:10 05:10 WBC 12.9 H RBC 5.04 Hgb 15.8 Hct 44.8 MCV 88.9 MCH 31.3 MCHC 35.3 RDW 13.5 RDW Differential 43.5 Plt Count 213 MPV 10.8 Immature Gran % (Auto) Neut % (Auto) Lymph % (Auto) [place] % (Auto) Eos % (Auto) Baso % (Auto) Absolute Neuts (auto) Absolute Lymphs (auto) Total Counted Differential Comment PT INR APTT 45.5 H Activated Clotting Time Sodium 135 L Potassium 3.5 Chloride 100 Carbon Dioxide 26.0 Anion Gap 9 BUN 19 H Creatinine 1.10 Estim Creat Clear Calc 82.05 Est GFR (MDRD) Af Amer 93 Est GFR (MDRD) Non-Af 77 BUN/Creatinine Ratio 17.3 Glucose 121 H Hemoglobin A1c Calcium 8.2 L Phosphorus Magnesium Troponin I Triglycerides 145 Cholesterol 162 LDL Cholesterol 96 VLDL Cholesterol 29 HDL Cholesterol 37 L Urine Opiates Screen Urine Methadone Screen Ur Barbiturates Screen Ur Phencyclidine Scrn Ur Amphetamines Screen U Methamphetamin-MDMA U Benzodiazepines Scrn Urine Cocaine Screen U Cannabinoids Screen Ur Drug Screen Comment MRSA (PCR) POC Glucose 05/01/18 05/01/18 05/01/18 05:10 06:23 12:24 WBC RBC Hgb Hct MCV MCH MCHC RDW RDW Differential Plt Count MPV Immature Gran % (Auto) Neut % (Auto) Lymph % (Auto) [place] % (Auto) Eos % (Auto) Baso % (Auto) Absolute Neuts (auto) Absolute Lymphs (auto) Total Counted Differential Comment PT INR APTT 54.6 H Activated Clotting Time Sodium Potassium Chloride Carbon Dioxide Anion Gap BUN Creatinine Estim Creat Clear Calc Est GFR (MDRD) Af Amer Est GFR (MDRD) Non-Af BUN/Creatinine Ratio Glucose Hemoglobin A1c Calcium Phosphorus Magnesium Troponin I Triglycerides Cholesterol LDL Cholesterol VLDL Cholesterol HDL Cholesterol Urine Opiates Screen Urine Methadone Screen Ur Barbiturates Screen Ur Phencyclidine Scrn Ur Amphetamines Screen U Methamphetamin-MDMA U Benzodiazepines Scrn Urine Cocaine Screen U Cannabinoids Screen Ur Drug Screen Comment MRSA (PCR) POC Glucose 143 H 144 H 05/01/18 05/01/18 05/01/18 12:30 15:05 18:14 WBC 12.5 H RBC 4.93 Hgb 15.6 Hct 44.3 MCV 89.9 MCH 31.6 MCHC 35.2 RDW 13.5 RDW Differential 44.1 H Plt Count 191 MPV 11.0 Immature Gran % (Auto) 0.100 Neut % (Auto) 73.2 H Lymph % (Auto) 12.7 L [place] % (Auto) 13.9 H Eos % (Auto) 0.0 Baso % (Auto) 0.1 Absolute Neuts (auto) 9.1 H Absolute Lymphs (auto) 1.59 Total Counted Not Reportable Differential Comment SCANNED PT INR APTT 47.9 H Activated Clotting Time Sodium Potassium Chloride Carbon Dioxide Anion Gap BUN Creatinine Estim Creat Clear Calc Est GFR (MDRD) Af Amer Est GFR (MDRD) Non-Af BUN/Creatinine Ratio Glucose Hemoglobin A1c Calcium Phosphorus Magnesium Troponin I Triglycerides Cholesterol LDL Cholesterol VLDL Cholesterol HDL Cholesterol Urine Opiates Screen Urine Methadone Screen Ur Barbiturates Screen Ur Phencyclidine Scrn Ur Amphetamines Screen U Methamphetamin-MDMA U Benzodiazepines Scrn Urine Cocaine Screen U Cannabinoids Screen Ur Drug Screen Comment MRSA (PCR) POC Glucose 107 05/01/18 05/01/18 05/02/18 18:50 23:37 01:00 WBC RBC Hgb Hct MCV MCH MCHC RDW RDW Differential Plt Count MPV Immature Gran % (Auto) Neut % (Auto) Lymph % (Auto) [place] % (Auto) Eos % (Auto) Baso % (Auto) Absolute Neuts (auto) Absolute Lymphs (auto) Total Counted Differential Comment PT INR APTT 59.4 H 49.7 H Activated Clotting Time Sodium Potassium Chloride Carbon Dioxide Anion Gap BUN Creatinine Estim Creat Clear Calc Est GFR (MDRD) Af Amer Est GFR (MDRD) Non-Af BUN/Creatinine Ratio Glucose Hemoglobin A1c Calcium Phosphorus Magnesium Troponin I Triglycerides Cholesterol LDL Cholesterol VLDL Cholesterol HDL Cholesterol Urine Opiates Screen Urine Methadone Screen Ur Barbiturates Screen Ur Phencyclidine Scrn Ur Amphetamines Screen U Methamphetamin-MDMA U Benzodiazepines Scrn Urine Cocaine Screen U Cannabinoids Screen Ur Drug Screen Comment MRSA (PCR) POC Glucose 123 H 05/02/18 05/02/18 05/02/18 04:00 04:00 04:00 WBC 9.4 RBC 4.68 Hgb 14.7 Hct 42.0 MCV 89.7 MCH 31.4 MCHC 35.0 RDW 13.5 RDW Differential 43.7 Plt Count 164 MPV 10.4 Immature Gran % (Auto) 0.100 Neut % (Auto) 76.3 H Lymph % (Auto) 11.4 L [place] % (Auto) 11.9 H Eos % (Auto) 0.1 Baso % (Auto) 0.2 Absolute Neuts (auto) 7.2 Absolute Lymphs (auto) 1.07 Total Counted Not Reportable Differential Comment PT INR APTT Activated Clotting Time Sodium 137 Potassium 3.4 L Chloride 101 Carbon Dioxide 25.0 Anion Gap 11 BUN 23 H Creatinine 0.96 Estim Creat Clear Calc 94.01 Est GFR (MDRD) Af Amer 108 Est GFR (MDRD) Non-Af 90 BUN/Creatinine Ratio 23.9 H Glucose 122 H Hemoglobin A1c Calcium 8.1 L Phosphorus 1.5 L Magnesium 2.5 Troponin I Triglycerides Cholesterol LDL Cholesterol VLDL Cholesterol HDL Cholesterol Urine Opiates Screen Urine Methadone Screen Ur Barbiturates Screen Ur Phencyclidine Scrn Ur Amphetamines Screen U Methamphetamin-MDMA U Benzodiazepines Scrn Urine Cocaine Screen U Cannabinoids Screen Ur Drug Screen Comment MRSA (PCR) POC Glucose 05/02/18 05:36 WBC RBC Hgb Hct MCV MCH MCHC RDW RDW Differential Plt Count MPV Immature Gran % (Auto) Neut % (Auto) Lymph % (Auto) [place] % (Auto) Eos % (Auto) Baso % (Auto) Absolute Neuts (auto) Absolute Lymphs (auto) Total Counted Differential Comment PT INR APTT Activated Clotting Time Sodium Potassium Chloride Carbon Dioxide Anion Gap BUN Creatinine Estim Creat Clear Calc Est GFR (MDRD) Af Amer Est GFR (MDRD) Non-Af BUN/Creatinine Ratio Glucose Hemoglobin A1c Calcium Phosphorus Magnesium Troponin I Triglycerides Cholesterol LDL Cholesterol VLDL Cholesterol HDL Cholesterol Urine Opiates Screen Urine Methadone Screen Ur Barbiturates Screen Ur Phencyclidine Scrn Ur Amphetamines Screen U Methamphetamin-MDMA U Benzodiazepines Scrn Urine Cocaine Screen U Cannabinoids Screen Ur Drug Screen Comment MRSA (PCR) POC Glucose 117 H Clinical Impression(s) from Imaging Studies Chest X-Ray 04/30/18 15:50 IMPRESSION: Intra-arterial blood pressure line ends in the proximal descending aorta. No acute cardiopulmonary findings. Electronically Signed: Luzmaria Zelaya MD at 16:09 EDT , Service support , Chest X-Ray 05/01/18 07:42 IMPRESSION: Stable appearance of intra-arterial blood pressure line. Questionable developing left retrocardiac infiltrate. Electronically Signed: Meng Flowers DO at 8:31 EDT Tel , Service support , Chest X-Ray 05/01/18 15:20 IMPRESSION: No demonstrated acute cardiopulmonary process. Electronically Signed: Cynthia Antonio MD at 15:42 EDT Tel , Service support , ADDENDUM: 05/01/18 1623 Medical Necessity - Tobacco Use Smoking Status: Current every day smoker Tobacco Use: Cigarettes Assessment/Plan All Active Problems (Last Updated 04/30/18 @ 16:41 by Hina Pruett) Atherosclerotic heart disease of [place] coronary artery with unstable angina pectoris (Acute 04/30/18) Stented coronary artery (Acute 04/30/18) ST elevation myocardial infarction (STEMI) of anterior wall (Acute) Chest pain (Acute) RECOMMENDATIONS: 1. Continue diuretic regimen per cardiology recommendations. 2. Continue scheduled bronchodilators. 3. Encourage incentive spirometer use. 4. Perform walking oximetry study prior to consideration for discharge from the hospital. 5. Ideally, the patient needs to follow-up in the pulmonary medicine clinic so that baseline pulmonary function testing to be obtained. 6. Given the patient's fevers, will obtain repeat plain film chest x-ray to evaluate for potential infiltrate. 7. Potassium and phosphate repletion as ordered. IMPRESSIONS: 1. Acute hypoxic respiratory insufficiency Likely secondary to the acute events leading up to his hospitalization including acute systolic heart failure/ischemic cardiomyopathy coupled with atelectasis and the possibility for underlying obstructive lung disease. The patient has been weaned from supplemental oxygen at this time and is maintaining appropriate saturations on room air. Recommend continuing diuretic therapy per cardiology recommendations. Continue scheduled duo nebs accordingly. Encourage incentive spirometer use. Given that the patient also has a fever, will obtain repeat plain film chest x-ray this morning to evaluate for the presence of an evolving infiltrate. The patient undoubtedly needs to follow-up in the pulmonary medicine clinic so that baseline pulmonary function testing can be completed. 2. Ischemic cardiomyopathy status post PTCA with SAMANTHA placement to proximal LAD/acute systolic CHF Continue current supportive measures with intra-aortic balloon pump and medical management per cardiology recommendations. Intra-aortic balloon pump removal per the discretion of cardiology. 3. Fever While this may be a stress response to the patient's acute events over the last 48 hours, will obtain repeat plain film chest x-ray to evaluate for an evolving infiltrate. Blood and urine cultures have shown no growth to date. We will consider empiric antibiotic initiation if x-ray is concerning. 4. Hypokalemia/hypophosphatemia Electrolyte repletion is currently underway. Recheck level status post repletion. 5. Hypertension/hyperlipidemia/history of tobacco use Complicates care, management, recovery and prognosis. Smoking cessation is strongly advisable. This note was generated with [employer] dictation software. It may contain incorrect words, spelling, and punctuation that were not noted in checking the note before signing. Code Visit Inpatient E&M: 62586 Subs Hosp L3
[2018-05-02 09:02] LABS: Partial Thromboplast Time 49.2 Seconds (24.1-36.2)
--- NOTE | 2018-05-02 09:07 | NURSING ---
Heparin gtt off at this time per Dr. Menjivar. Balloon Pump turned to 1:4 ratio for one hour. Instructed by Dr. Menjivar to turn balloon pump to 1:1 at 1100 if BP stays stable on 1:4.
--- NOTE | 2018-05-02 10:00 | EKG12_ITS ---
Test Reason : AM Blood Pressure : / mmHG Vent. Rate : 092 BPM Atrial Rate : 092 BPM P-R Int : 170 ms QRS Dur : 090 ms QT Int : 362 ms P-R-T Axes : 059 082 037 degrees QTc Int : 447 ms Normal sinus rhythm Anteroseptal infarct , possibly acute ACUTE NM / STEMI Abnormal ECG When compared with ECG of 01-MAY-2018 05:14, MANUAL COMPARISON REQUIRED, DATA IS UNCONFIRMED Confirmed by JAGUAR HERNADEZ, LUZMARIA ([id number]), photography editor ION LOPEZ ([id number]) on 05/06/2018 3:46:17 PM Referred By: KANCHAN Confirmed By:LUZMARIA MONTESINOS MD
--- NOTE | 2018-05-02 12:17 | PN.CARD_ITS ---
Subjectve: Patient seen and evaluated. Objective: Vital Signs Temp Pulse Resp BP Pulse Ox 101.5 F H 100 23 H 118/78 97 05/02/18 11:00 05/02/18 11:00 05/02/18 11:00 05/02/18 11:00 05/02/18 11:00 Oxygen Flow Rate (L/min) 2 Oxygen Delivery Method Room Air Weight: 194 lb 3.636 oz Body Mass Index (BMI) 29.0 Intake and Output for Last 24 Hours 04/30/18 05/01/18 05/02/18 23:59 23:59 23:59 Intake Total 800 / 800 2953.5 / 2953.5 1589.0 / 1589.0 Output Total 2268 / 2268 2726 / 2726 1460 / 1460 Balance -1468 / -1468 227.5 / 227.5 129.0 / 129.0 General: Awake, Alert, Oriented x 3 HEENT: PERRL, EOMI, Sclera Non Icteric Neck: Supple, Good ROM, No Lymph Node Enlargement Lungs: Clear to auscultation Cardiovascular: Regular Rhythm, Normal S1, Normal S2, No Murmurs, No Rubs, No Gallops Vascular: No Carotid Bruits, Normal Femoral Pulses, Normal Radial Pulses, Normal Dorsalis Pedal Pulse, Normal Posterior Tibial Pulses Abdomen: Bowel Sounds Present, Soft, Non Tender, No HSM, No Organomegaly Extremities: No Cyanosis, No Clubbing, No edema Neurological: No Focal Motor or Sensory Deficit 05/01/18 12:30: APTT 47.9 H 05/01/18 15:05: WBC 12.5 H, RBC 4.93, Hgb 15.6, Hct 44.3, MCV 89.9, MCH 31.6, MCHC 35.2, RDW 13.5, RDW Differential 44.1 H, Plt Count 191, MPV 11.0, Immature Gran % (Auto) 0.100, Neut % (Auto) 73.2 H, Lymph % (Auto) 12.7 L, [place] % (Auto) 13.9 H, Eos % (Auto) 0.0, Baso % (Auto) 0.1, Absolute Neuts (auto) 9.1 H, Total Counted Not Reportable 05/01/18 18:50: APTT 59.4 H 05/02/18 01:00: APTT 49.7 H 05/02/18 04:00: WBC 9.4, RBC 4.68, Hgb 14.7, Hct 42.0, MCV 89.7, MCH 31.4, MCHC 35.0, RDW 13.5, RDW Differential 43.7, Plt Count 164, MPV 10.4, Immature Gran % (Auto) 0.100, Neut % (Auto) 76.3 H, Lymph % (Auto) 11.4 L, [place] % (Auto) 11.9 H, Eos % (Auto) 0.1, Baso % (Auto) 0.2, Absolute Neuts (auto) 7.2, Total Counted Not Reportable 05/02/18 04:00: Sodium 137, Potassium 3.4 L, Chloride 101, Carbon Dioxide 25.0, Anion Gap 11, BUN 23 H, Creatinine 0.96, Est GFR (MDRD) Af Amer 108, Est GFR (MDRD) Non-Af 90, BUN/Creatinine Ratio 23.9 H, Glucose 122 H, Calcium 8.1 L, Magnesium 2.5 05/02/18 04:00: Phosphorus 1.5 L 05/02/18 08:25: APTT 49.2 H Rhythm: EKG: NSR with anterior ST elevation. ECHO: Stress Test: Cardiac Cath: PCI: CT Surgery: Holter monitor: EPS: PPM: CXR: Chest CT Scan: Medical Necessity - Tobacco Use Smoking Status: Current every day smoker Tobacco Use: Cigarettes Assessment/Plan 1. Coronary artery disease: Patient presents with delayed presentation anterior wall myocardial infarction with substantial clot burden in the proximal mid and distal LAD with successful emergent angioplasty and drug-eluting stenting x3 to the distal mid and proximal LAD. Had IABP placed and successfully removed this morning without incident. Echocardiogram demonstrates proximal mid and apical anterior akinesis, with overall ejection fraction around 25-30%. Heart rate is improved with diuretic therapy as well as amiodarone drip given his relative hypotension. Would recommend initiating Coreg 3.125 mg p.o. twice daily, continuing Diovan, and continuing Lasix 40 mg po daily. Patient will continue baby aspirin, Brilinta. Patient has had no arrhythmias as of yet. 2. LV dysfunction: Hopefully with emergent intervention, intrinsic balloon pump, medical therapy, and cardiac rehab his LV function will improve. We will repeat his echocardiogram at the conclusion of cardiac rehab. If patient develops malignant ventricular arrhythmias he may require short term amiodarone therapy to get him through cardiac rehab. 3. Hyperlipidemia: Continue statin based medications. Patient stable this morning. If he continues to improve would suggest disc ontinuing the New catheter and allow patient to sit up in bed.
[2018-05-02] MEDS: fentaNYL 100 MCG/2 ML Ampul 25 MCG IV ×2 (13:15)
[2018-05-02] MEDS: Carvedilol 3.125 MG TABLET PO ×2 (14:09→21:37)
[2018-05-02] MEDS: Famotidine 20 MG Tablet PO ×2 (14:09→21:36)
[2018-05-02] MEDS: TICAGRELOR 90 MG TABLET PO ×2 (14:09→21:37)
[2018-05-02] MEDS: Aspirin 81 MG TAB.CHEW PO (14:10)
[2018-05-02] MEDS: Acetaminophen 325 MG Tablet 650 MG PO (14:45)
[2018-05-02] MEDS: Furosemide 20 MG/2 ML VIAL IV (20:27)
[2018-05-02] MEDS: Atorvastatin Calcium 80 MG Tablet PO (21:37)
[2018-05-03] VITALS (21 sets, daily range): BP systolic 92–117; BP diastolic 54–76; PULSE 91–106; RESP 16–24; TEMP 37.2–37.9; O2SAT 93–96
[2018-05-03 05:21] LABS: Absolute Lymphocyte Count 0.99 X10^3/ul (0.83-4.51); Basophil# 0.01 X10^3/uL; Basophil% 0.1 % (0-1); Eosinophil# 0.03 X10^3/uL; Eosinophils% 0.4 % (0-5); Hematocrit 41.5 % (40-54); Hemoglobin 14.6 g/dl (13.0-16.5); Lymphocyte # 0.99 X10^3/ul (4.0); Lymphocyte % 14.1 % (19-41); Mean Corp Hgb Conc 35.2 g/gl (32-36); Mean Corpuscular Hgb 31.3 pg (27.0-32.0); Mean Corpuscular Volume 89.1 fL (80-94); Mean Platelet Vol. 10.7 fl (6.2-12.0); Monocyte# 0.99 X10^3/uL; Monocyte% 14.1 % (0-10); Neutrophil % 71.2 % (47-70); Platelet Count 185 K/mm3 (150-450); RBC Distribution Width CV 13.4 % (11.6-14.6); RBC Distribution Width SD 43.3 fl (35.1-43.9); Red Blood Count 4.66 M/mm3 (4.6-6.2)
[2018-05-03 05:49] LABS: Anion Gap 10 (5-15); BUN 24 mg/dL (7-18); BUN/Creat Ratio 27.1 RATIO (10-20); Calcium,Total 8.2 mg/dL (8.5-10.1); Chloride 102 mmol/L (98-107); Creatinine, Serum 0.89 mg/dL (0.70-1.30); EST Glomerular Filtration Rate 98 mL/min (>60); Est Glom Filt Rate - Afr Amer 119 mL/min (>60); Glucose 102 mg/dL (74-106); Magnesium 2.3 mg/dL (1.6-2.6); Phosphorus 2.8 mg/dL (2.5-4.9); Potassium 3.7 mmol/L (3.5-5.1); Sodium Level 136 mmol/L (136-145)
--- NOTE | 2018-05-03 05:50 | RAD_ITS ---
STUDY: X-RAY CHEST REASON FOR EXAM: Male, 47 years old. Fever. TECHNIQUE: PA and lateral chest. COMPARISON: May 02, 2018. FINDINGS: Aortic balloon pump has been removed. There is left lower lobe airspace opacity slightly decreased as compared to the prior study. No pleural effusions. No pneumothorax. Normal size heart. Normal mediastinum and [place]. Normal visualized pulmonary arteries. Normal visualized aortic arch and descending thoracic aorta. Osseous structures unchanged. There is no demonstrated abnormality of the visualized soft tissue structures of the upper abdomen. RAD/Chest PA and Lateral IMPRESSION: Left lower lobe subsegmental atelectasis versus pneumonia slightly improved on the frontal view. Electronically Signed: Kwame Denny MD at 6:48 EDT , Service support ,
[2018-05-03 05:51] LABS: POSITIVE COUNT NO; POSITIVE DIFFERENTIAL NO; POSITIVE MORPHOLOGY NO
--- NOTE | 2018-05-03 06:33 | PCM.PN.HOSP ---
Patient Problems: Active and Suspected Problems (Last Updated 04/30/18 @ 16:41 by Hina Pruett) Atherosclerotic heart disease of [place] coronary artery with unstable angina pectoris (Acute 04/30/18) PTCA and SAMANTHA to proximal LAD using thrombectomy followed by POBA, followed by 4.0 X 16 mm Promus Synergy; SAMANTHA to 100% stenosed mid LAD: 2.5 X 24 Promus Synergy; SAMANTHA to 85% stenosed distal LAD : 2.5 X 24 Promus Synergy. Stented coronary artery (Acute 04/30/18) PTCA and SAMANTHA to proximal LAD using thrombectomy followed by POBA, followed by 4.0 X 16 mm Promus Synergy; SAMANTHA to 100% stenosed mid LAD: 2.5 X 24 Promus Synergy; SAMANTHA to 85% stenosed distal LAD : 2.5 X [address] elevation myocardial infarction (STEMI) of anterior wall (Acute) Subjective: Patient with no acute events overnight per self and per nursing report. Patient denies any further chest discomfort or dyspnea. He notes that his neck and back discomfort has also improved since ability to move status post balloon pump removal. Patient T-max has improved and currently only low-grade temperature. Repeat chest x-ray with only noted atelectasis therefore reviewed this with patient and family and given discussions with ICU physician, no plans for abx therapy, suspected likely stress response w/ his acute presentation. Patient denies fevers, chills, nausea, emesis, abdominal pain, chest pain or dyspnea. Objective: Physical Examination: General: awake, alert, oriented x 3 and cooperative, seated upright in the ICU bed at angle, ongoing balloon pump, denies any current chest pain. Skin: normal color, turgor, no icterus, cyanosis, s/p R groin balloon pump removal. HEENT: AT/NC, EOMI, PERRLA, improved MMM. Lungs: Diminished BS BL bases, mild effort, no rales, ronchi or wheezing. Heart: Improved, regular rate and regular rhythm; no gallop, rub audible. Abdomen: soft, NTTP, ND, normal BS. Extremities: no cyanosis, clubbing, s/p R groin balloon pump removal. Neurological: patient awake, alert, oriented x 3; cognitive function intact; pupils equally reactive to light and accomodation; cranial nerves II-XII grossly normal, moving all 4 extremities, s/p R groin balloon pump removal, strength improved mildly globally decreased. Psychiatric: affect appears normal, no acute evidence of depressive or anxiety feelings. Vitals/I&O's: Vital Signs Temp Pulse Resp BP Pulse Ox 100.2 F H 95 24 H 110/76 94 05/03/18 04:00 05/03/18 04:00 05/03/18 04:00 05/03/18 04:00 05/03/18 04:00 Oxygen Flow Rate (L/min) 2 Oxygen Delivery Method Room Air Weight: 195 lb 1.745 oz Body Mass Index (BMI) 29.0 Intake and Output for Last 24 Hours 05/01/18 05/02/18 05/03/18 23:59 23:59 23:59 Intake Total 2953.5 / 2953.5 2475.0 / 2475.0 250 / 250 Output Total 2726 / 2726 3060 / 3060 500 / 500 Balance 227.5 / 227.5 -585.0 / -585.0 -250 / -250 Microbiology Past 72 Hours 05/01/18 20:15 Urine Catheter - New Urine Culture - Preliminary Gram Positive Cocci Laboratory Results 05/02/18 08:25: APTT 49.2 H 05/03/18 05:10: WBC 7.0, RBC 4.66, Hgb 14.6, Hct 41.5, MCV 89.1, MCH 31.3, MCHC 35.2, RDW 13.4, RDW Differential 43.3, Plt Count 185, MPV 10.7, Immature Gran % (Auto) 0.100, Neut % (Auto) 71.2 H, Lymph % (Auto) 14.1 L, [place] % (Auto) 14.1 H, Eos % (Auto) 0.4, Baso % (Auto) 0.1, Absolute Neuts (auto) 5.0, Absolute Lymphs (auto) 0.99, Total Counted Not Reportable 05/03/18 05:10: Sodium 136, Potassium 3.7, Chloride 102, Carbon Dioxide 24.0, Anion Gap 10, BUN 24 H, Creatinine 0.89, Estim Creat Clear Calc 101.40, Est GFR (MDRD) Af Amer 119, Est GFR (MDRD) Non-Af 98, BUN/Creatinine Ratio 27.1 H, Glucose 102, Calcium 8.2 L, Phosphorus 2.8, Magnesium 2.3 Current Medications Acetaminophen (Tylenol) 650 mg PO Q4H PRN PRN PRN Reason: fever, pain Al Hydroxide/Mg Hydroxide (Mylanta Ii) 30 ml PO Q6H PRN PRN PRN Reason: Gastric burning Albuterol/Ipratropium (Duoneb) 3 ml INHALATION Q6HWA.RT [facility] Last Admin: 05/02/18 19:12 Dose: Not Given Aspirin (Aspirin, Baby) 81 mg PO DAILY@0800 [facility] Last Admin: 05/02/18 14:10 Dose: 81 mg Atorvastatin Calcium (Lipitor) 80 mg PO QHS [facility] Last Admin: 05/02/18 21:37 Dose: 80 mg Atropine Sulfate () 0.5 mg IV UD PRN PRN Reason: HR <50 bpm Carvedilol (Coreg) 3.125 mg PO BID [facility] Last Admin: 05/02/18 21:37 Dose: 3.125 mg Diazepam (Valium) 5 mg PO Q6H PRN PRN PRN Reason: BACK SPASMS/ANXIETY Last Admin: 04/30/18 20:21 Dose: 5 mg Famotidine (Pepcid) 20 mg PO BID [facility] Last Admin: 05/02/18 21:36 Dose: 20 mg Furosemide (Lasix) 40 mg PO DAILY [facility] Heparin Sodium (Beef Lung) (Heparin 500 Unit/5 Ml (100/Ml)) 500 unit IV UD PRN PRN Reason: HEPARIN FLUSH Heparin Sodium (Porcine) (Heparin Na) 0 unit IV UD PRN; Protocol Last Admin: 05/02/18 02:55 Dose: 1,000 unit Ibuprofen (Motrin) 600 mg PO Q6H PRN PRN PRN Reason: mild pain, fever Labetalol HCl (Trandate) 5 mg IV X1 PRN PRN Reason: SBP > 160 when pulling sheath Magnesium Hydroxide (Milk Of Magnesia) 30 ml PO DAILY PRN PRN PRN Reason: Constipation Morphine Sulfate () 4 mg IV Q4H PRN PRN PRN Reason: Moderate back pain (3-5/10) Last Admin: 04/30/18 20:21 Dose: 4 mg Ondansetron HCl (Zofran) 4 mg IV Q8H PRN PRN PRN Reason: NAUSEA Promethazine HCl (Phenergan) 12.5 mg IV Q6H PRN PRN PRN Reason: NAUSEA/VOMITING Sodium Chloride () 500 ml IV BOLUS PRN PRN Reason: VASO-VAGAL PROTOCOL Sodium Chloride () 5 - 30 ml IV UD PRN PRN Reason: SALINE FLUSH Last Admin: 05/02/18 03:54 Dose: 10 ml Ticagrelor (Brilinta) 90 mg PO BID [facility] Last Admin: 05/02/18 21:37 Dose: 90 mg Valsartan (Diovan) 80 mg PO DAILY [facility] Last Admin: 05/02/18 14:10 Dose: 80 mg Medical Necessity - Tobacco Use Smoking Status: Current every day smoker Tobacco Use: Cigarettes Assessment/Plan All Active Problems (Last Updated 04/30/18 @ 16:41 by Hina Pruett) Atherosclerotic heart disease of [place] coronary artery with unstable angina pectoris (Acute 04/30/18) Stented coronary artery (Acute 04/30/18) ST elevation myocardial infarction (STEMI) of anterior wall (Acute) Chest pain (Acute) The patient is a 47 y/o M w/ PMHx: Tobacco use who presents to the [facility] ED on 04/30/18 with history of onset midsternal chest pressure, rated 11/10 with radiation toward the back between his scapular with associated dyspnea, diaphoresis but no nausea or emesis starting this past Friday, intermittent, waxing and waning he notes, worse with any exertion but more severe episode ~ 20-30 minutes prior to ED arrival. (1) Chest Pain secondary to Acute Anterior STEMI: ED presentation work-up included 98, heart rate 127, BP 120/80, respiratory rate 20, 96% on room air, BC with WC 12.5, hemoglobin 17.6, platelet 199 with left shift, unremarkable coags except activated clotting time 202, BMP with glucose 133, troponin 74.4, urine drug screen negative, EKG w/ sinus rhythm with ST segment elevation in the anterior leads. STEMI immediately called and patient administered Brilinta load, heparin bolus, aspirin therapy. Cardiac Catheterization w/ single-vessel CAD of the LAD with successful PTCA/SAMANTHA of the proximal LAD using thrombectomy in addition to the mid and distal LAD with continued balloon pump in place with transition to the ICU following. Noted evidence of severe segmented LV systolic dysfunction with LVEF 45%. Discussion with cardiology and given patient's notable findings on cardiac catheterization continued balloon pump in place with transition per cardiology discretion with continued aspirin, Brilinta, Integrilin drip to completion now transitioned back to heparin drip until balloon pump removal 05/02/18 11 am, high-dose statin with AM FLP w/ TG 145, TChol 162, LDL 96, LDL 29, HDL 37, Coreg, losartan. ECHO with EF 25-30%, stage I diastolic dysfunction, unable to estimate RV systolic pressure due to inadequate jet with pulmonary artery pressure likely normal, severely hypokinetic basal anterior septal region, akinetic mid anterior region, akinetic anterior apex, akinetic apex with no comparison study. Mag 1.6, supplemented. Phos 1.5, supplemented. Cardiac enzyme trending w/ Trop 74.4-->>200-->172-->125. Aspirin, morphine, nitroglycerin. Given presentation, improvement, 05/02/18 ~ 11 am balloon pump discontinuation. Repeat CXR 05/03/18, atelectasis, discussed with ICU and will continue to defer abx therapy. Given stability will transfer to PCU per discussion with ICU staff and Cardiology service. Possibly ability to discharge to home 05/04/18 if amenable per Cardiology. Discussed with family plan to review cost of regimen w/ CM again. They have paperwork they need to fill out for cost reduction for brillinta. (2) Acute Systolic CHF Exacerbation secondary to #1 (Acute Anterior STEMI) and Ischemic Cardiomyopathy: Maintained on the balloon pump, ECHO with EF 25-30%, stage I diastolic dysfunction, unable to estimate RV systolic pressure due to inadequate jet with pulmonary artery pressure likely normal, severely hypokinetic basal anterior septal region, akinetic mid anterior region, akinetic anterior apex, akinetic apex with no comparison study, maintained on aspirin, Coreg, intermittent PRN IV Lasix-->oral lasix regimen, diovan, brillinta and high dose statin therapy. (3) Hypoxia secondary to #1, #2 and Suspected Underlying Pulmonary Disease/Chronic COPD w/ prolonged history of Tobacco use: Desaturations w/ activity, resting upon initial transition to the ICU, weaned off oxygen overnight 05/01-05/02, less dyspnea noted. Will continue ATC duonebs, PRN albuterol, HOB, IS parameters. Will need follow-up with pulmonary following discharge for PFTs and walking oximetry testing. Repeat CXR PA and Lateral 05/03/18, atelectasis, discussed with ICU and will continue to defer abx therapy. CBC remains appropriate, no WBC elevation or marked shift. Fever trending down. Respiratory viral panel negative. (4) Fever: Ongoing, improving since 05/02/18, UCx w/ 25,000-50,000 GPC, Bld Cx x 2 without growth, CXR without infiltrate. Repeat CXR PA and Lateral 05/03/18, atelectasis, discussed with ICU and will continue to defer abx therapy. CBC remains appropriate, no WBC elevation or marked shift. Fever trending down. Respiratory viral panel negative. (5) Hypertension: Continue home regimen including Coreg, Diovan, Lasix. (6) Hyperlipidemia: Continue statin regimen. AM FLP w/ TG 145, TChol 162, LDL 96, LDL 29, HDL 37. (7) Hyperglycemia: Admission glucose 133, likely stress response, hemoglobin A1c 5.3%. (8) Tobacco Abuse: Encouraged cessation, inpatient consultation per RT, deferred NR given admission presentation history. (9) Electrolyte Deficiencies: Hypokalemia 3.4, Hypophosphatemia 1.5, IV supplementation administered, repeat levels appropriate. (10) DVT Prophylaxis: SCDs, lovenox. Code Visit Inpatient E&M: 61882 Subs Hosp L2
[2018-05-03] MEDS: Ipratropium/Albuterol Sulfate 3 ML AMPUL.NEB INHALATION ×3 (06:36→18:48)
--- NOTE | 2018-05-03 06:36 | PN_ITS ---
Patient Problems: Active and Suspected Problems (Last Updated 04/30/18 @ 16:41 by Hina Pruett) Atherosclerotic heart disease of [place] coronary artery with unstable angina pectoris (Acute 04/30/18) PTCA and SAMANTHA to proximal LAD using thrombectomy followed by POBA, followed by 4.0 X 16 mm Promus Synergy; SAMANTHA to 100% stenosed mid LAD: 2.5 X 24 Promus Synergy; SAMANTHA to 85% stenosed distal LAD : 2.5 X 24 Promus Synergy. Stented coronary artery (Acute 04/30/18) PTCA and SAMANTHA to proximal LAD using thrombectomy followed by POBA, followed by 4.0 X 16 mm Promus Synergy; SAMANTHA to 100% stenosed mid LAD: 2.5 X 24 Promus Synergy; SAMANTHA to 85% stenosed distal LAD : 2.5 X [address] elevation myocardial infarction (STEMI) of anterior wall (Acute) Subjective: Patient with no acute events overnight per self and per nursing report. Patient denies any further chest discomfort or dyspnea. He notes that his neck and back discomfort has also improved since ability to move status post balloon pump removal. Patient T-max has improved and currently only low-grade temperature. Repeat chest x-ray with only noted atelectasis therefore reviewed this with patient and family and given discussions with ICU physician, no plans for abx therapy, suspected likely stress response w/ his acute presentation. Patient denies fevers, chills, nausea, emesis, abdominal pain, chest pain or dyspnea. Objective: Physical Examination: General: awake, alert, oriented x 3 and cooperative, seated upright in the ICU bed at angle, ongoing balloon pump, denies any current chest pain. Skin: normal color, turgor, no icterus, cyanosis, s/p R groin balloon pump removal. HEENT: AT/NC, EOMI, PERRLA, improved MMM. Lungs: Diminished BS BL bases, mild effort, no rales, ronchi or wheezing. Heart: Improved, regular rate and regular rhythm; no gallop, rub audible. Abdomen: soft, NTTP, ND, normal BS. Extremities: no cyanosis, clubbing, s/p R groin balloon pump removal. Neurological: patient awake, alert, oriented x 3; cognitive function intact; pupils equally reactive to light and accomodation; cranial nerves II-XII grossly normal, moving all 4 extremities, s/p R groin balloon pump removal, strength improved mildly globally decreased. Psychiatric: affect appears normal, no acute evidence of depressive or anxiety feelings. Vitals/I&O's: Vital Signs Temp Pulse Resp BP Pulse Ox 100.2 F H 95 24 H 110/76 94 05/03/18 04:00 05/03/18 04:00 05/03/18 04:00 05/03/18 04:00 05/03/18 04:00 Oxygen Flow Rate (L/min) 2 Oxygen Delivery Method Room Air Weight: 195 lb 1.745 oz Body Mass Index (BMI) 29.0 Intake and Output for Last 24 Hours 05/01/18 05/02/18 05/03/18 23:59 23:59 23:59 Intake Total 2953.5 / 2953.5 2475.0 / 2475.0 250 / 250 Output Total 2726 / 2726 3060 / 3060 500 / 500 Balance 227.5 / 227.5 -585.0 / -585.0 -250 / -250 Microbiology Past 72 Hours 05/01/18 20:15 Urine Catheter - New Urine Culture - Preliminary Gram Positive Cocci Laboratory Results 05/02/18 08:25: APTT 49.2 H 05/03/18 05:10: WBC 7.0, RBC 4.66, Hgb 14.6, Hct 41.5, MCV 89.1, MCH 31.3, MCHC 35.2, RDW 13.4, RDW Differential 43.3, Plt Count 185, MPV 10.7, Immature Gran % (Auto) 0.100, Neut % (Auto) 71.2 H, Lymph % (Auto) 14.1 L, [place] % (Auto) 14.1 H, Eos % (Auto) 0.4, Baso % (Auto) 0.1, Absolute Neuts (auto) 5.0, Absolute Lymphs (auto) 0.99, Total Counted Not Reportable 05/03/18 05:10: Sodium 136, Potassium 3.7, Chloride 102, Carbon Dioxide 24.0, Anion Gap 10, BUN 24 H, Creatinine 0.89, Estim Creat Clear Calc 101.40, Est GFR (MDRD) Af Amer 119, Est GFR (MDRD) Non-Af 98, BUN/Creatinine Ratio 27.1 H, Glucose 102, Calcium 8.2 L, Phosphorus 2.8, Magnesium 2.3 Current Medications Acetaminophen (Tylenol) 650 mg PO Q4H PRN PRN PRN Reason: fever, pain Al Hydroxide/Mg Hydroxide (Mylanta Ii) 30 ml PO Q6H PRN PRN PRN Reason: Gastric burning Albuterol/Ipratropium (Duoneb) 3 ml INHALATION Q6HWA.RT [facility] Last Admin: 05/02/18 19:12 Dose: Not Given Aspirin (Aspirin, Baby) 81 mg PO DAILY@0800 [facility] Last Admin: 05/02/18 14:10 Dose: 81 mg Atorvastatin Calcium (Lipitor) 80 mg PO QHS [facility] Last Admin: 05/02/18 21:37 Dose: 80 mg Atropine Sulfate () 0.5 mg IV UD PRN PRN Reason: HR <50 bpm Carvedilol (Coreg) 3.125 mg PO BID [facility] Last Admin: 05/02/18 21:37 Dose: 3.125 mg Diazepam (Valium) 5 mg PO Q6H PRN PRN PRN Reason: BACK SPASMS/ANXIETY Last Admin: 04/30/18 20:21 Dose: 5 mg Famotidine (Pepcid) 20 mg PO BID [facility] Last Admin: 05/02/18 21:36 Dose: 20 mg Furosemide (Lasix) 40 mg PO DAILY [facility] Heparin Sodium (Beef Lung) (Heparin 500 Unit/5 Ml (100/Ml)) 500 unit IV UD PRN PRN Reason: HEPARIN FLUSH Heparin Sodium (Porcine) (Heparin Na) 0 unit IV UD PRN; Protocol Last Admin: 05/02/18 02:55 Dose: 1,000 unit Ibuprofen (Motrin) 600 mg PO Q6H PRN PRN PRN Reason: mild pain, fever Labetalol HCl (Trandate) 5 mg IV X1 PRN PRN Reason: SBP > 160 when pulling sheath Magnesium Hydroxide (Milk Of Magnesia) 30 ml PO DAILY PRN PRN PRN Reason: Constipation Morphine Sulfate () 4 mg IV Q4H PRN PRN PRN Reason: Moderate back pain (3-5/10) Last Admin: 04/30/18 20:21 Dose: 4 mg Ondansetron HCl (Zofran) 4 mg IV Q8H PRN PRN PRN Reason: NAUSEA Promethazine HCl (Phenergan) 12.5 mg IV Q6H PRN PRN PRN Reason: NAUSEA/VOMITING Sodium Chloride () 500 ml IV BOLUS PRN PRN Reason: VASO-VAGAL PROTOCOL Sodium Chloride () 5 - 30 ml IV UD PRN PRN Reason: SALINE FLUSH Last Admin: 05/02/18 03:54 Dose: 10 ml Ticagrelor (Brilinta) 90 mg PO BID [facility] Last Admin: 05/02/18 21:37 Dose: 90 mg Valsartan (Diovan) 80 mg PO DAILY [facility] Last Admin: 05/02/18 14:10 Dose: 80 mg Medical Necessity - Tobacco Use Smoking Status: Current every day smoker Tobacco Use: Cigarettes Assessment/Plan All Active Problems (Last Updated 04/30/18 @ 16:41 by Hina Pruett) Atherosclerotic heart disease of [place] coronary artery with unstable angina p ectoris (Acute 04/30/18) Stented coronary artery (Acute 04/30/18) ST elevation myocardial infarction (STEMI) of anterior wall (Acute) Chest pain (Acute) The patient is a 47 y/o M w/ PMHx: Tobacco use who presents to the [facility] ED on 04/30/18 with history of onset midsternal chest pressure, rated 11/10 with radiation toward the back between his scapular with associated dyspnea, diaphoresis but no nausea or emesis starting this past Friday, intermittent, waxing and waning he notes, worse with any exertion but more severe episode ~ 20-30 minutes prior to ED arrival. (1) Chest Pain secondary to Acute Anterior STEMI: ED presentation work-up included 98, heart rate 127, BP 120/80, respiratory rate 20, 96% on room air, BC with WC 12.5, hemoglobin 17.6, platelet 199 with left shift, unremarkable coags except activated clotting time 202, BMP with glucose 133, troponin 74.4, urine drug screen negative, EKG w/ sinus rhythm with ST segment elevation in the anterior leads. STEMI immediately called and patient administered Brilinta load, heparin bolus, aspirin therapy. Cardiac Catheterization w/ single-vessel CAD of the LAD with successful PTCA/SAMANTHA of the proximal LAD using thrombectomy in add ition to the mid and distal LAD with continued balloon pump in place with transition to the ICU following. Noted evidence of severe segmented LV systolic dysfunction with LVEF 45%. Discussion with cardiology and given patient's notable findings on cardiac catheterization continued balloon pump in place with transition per cardiology discretion with continued aspirin, Brilinta, Integrilin drip to completion now transitioned back to heparin drip until balloon pump removal 05/02/18 11 am, high-dose statin with AM FLP w/ TG 145, TChol 162, LDL 96, LDL 29, HDL 37, Coreg, losartan. ECHO with EF 25-30%, stage I diastolic dysfunction, unable to estimate RV systolic pressure due to inadequate jet with pulmonary artery pressure likely normal, severely hypokinetic basal anterior septal region, akinetic mid anterior region, akinetic anterior apex, akinetic apex with no comparison study. Mag 1.6, supplemented. Phos 1.5, supplemented. Cardiac enzyme trending w/ Trop 74.4-->>200-->172-->125. Aspirin, morphine, nitroglycerin. Given presentation, improvement, 05/02/18 ~ 11 am balloon pump discontinuation. Repeat CXR 05/03/18, atelectasis, discussed with ICU and will continue to defer abx therapy. Given stability will transfer to PCU per discussion with ICU staff and Cardiology service. Possibly ability to discharge to home 05/04/18 if amenable per Cardiology. Discussed with family plan to review cost of regimen w/ CM again. They have paperwork they need to fill out for cost reduction for brillinta. (2) Acute Systolic CHF Exacerbation secondary to #1 (Acute Anterior STEMI) and Ischemic Cardiomyopathy: Maintained on the balloon pump, ECHO with EF 25-30%, stage I diastolic dysfunction, unable to estimate RV systolic pressure due to inadequate jet with pulmonary artery pressure likely normal, severely hypokinetic basal anterior septal region, akinetic mid anterior region, akinetic anterior apex, akinetic apex with no comparison study, maintained on aspirin, Coreg, intermittent PRN IV Lasix-->oral lasix regimen, diovan, brillinta and high dose statin therapy. (3) Hypoxia secondary to #1, #2 and Suspected Underlying Pulmonary Disease/Chronic COPD w/ prolonged history of Tobacco use: Desaturations w/ activity, resting upon initial transition to the ICU, weaned off oxygen overnight 05/01-05/02, less dyspnea noted. Will continue ATC duonebs, PRN albuterol, HOB, IS parameters. Will need follow-up with pulmonary following discharge for PFTs and walking oximetry testing. Repeat CXR PA and Lateral 05/03/18, atelectasis, discussed with ICU and will continue to defer abx therapy. CBC remains appropriate, no WBC elevation or marked shift. Fever trending down. Respiratory viral panel negative. (4) Fever: Ongoing, improving since 05/02/18, UCx w/ 25,000-50,000 GPC, Bld Cx x 2 without growth, CXR without infiltrate. Repeat CXR PA and Lateral 05/03/18, atelectasis, discussed with ICU and will continue to defer abx therapy. CBC remains appropriate, no WBC elevation or marked shift. Fever trending down. Respiratory viral panel negative. (5) Hypertension: Continue home regimen including Coreg, Diovan, Lasix. (6) Hyperlipidemia: Continue statin regimen. AM FLP w/ TG 145, TChol 162, LDL 96, LDL 29, HDL 37. (7) Hyperglycemia: Admission glucose 133, likely stress response, hemoglobin A1c 5.3%. (8) Tobacco Abuse: Encouraged cessation, inpatient consultation per RT, deferred NR given admission presentation history. (9) Electrolyte Deficiencies: Hypokalemia 3.4, Hypophosphatemia 1.5, IV supplementation administered, repeat levels appropriate. (10) DVT Prophylaxis: SCDs, lovenox. Code Visit Inpatient E&M: 17149 Subs Hosp L2
--- NOTE | 2018-05-03 07:24 | PCM.PN.INT ---
Subjective: The patient was seen and examined at the bedside this morning. Events from the last 24 hours have been reviewed. The patient is currently afebrile, hemodynamically stable and maintaining appropriate oxygen saturations on room air. The patient's intra-aortic balloon pump was successfully removed yesterday without complication. An AP lateral plain film chest x-ray was obtained this morning and personally reviewed. The patient appears to have a component of left basilar atelectasis. The patient denies the presence of shortness of breath or cough this morning. Objective: The patient's most recent lab work, culture data and imaging studies have all been personally reviewed. Blood and urine cultures are currently pending. Cardiac catheterization revealed single-vessel coronary artery disease of the ostial LAD along with segmental LV systolic dysfunction with an ejection fraction of 45%. The patient underwent successful PTCA of the proximal LAD with a SAMANTHA. Surface echocardiogram revealed mild concentric LVH with an ejection fraction of 25-30% along with stage I diastolic dysfunction.` General: Alert, Oriented x3, Cooperative, No apparent distress HEENT: Atraumatic, PERRLA, Normocephalic Oral: No Gingival or Mucosal Lesions/ Ulcerations Neck: Supple, No Nodes, Trachea Midline Lungs: No rhonchi, No wheeze, No rales, Diminished Cardiovascular: Regular rate, Regular Rhythm, Normal S1, Normal S2, No murmurs Abdomen: Bowel Sounds Present, Soft, Non Tender Extremities: No clubbing, No cyanosis, No edema Skin: No breakdown Musculoskeletal: No Tenderness to Palpation of Joints or Extremities, No Muscle Wasting Lymphatic: No Cervical, Supraclavicular, or Inguinal Adenopathy Neurological: Neuro grossly intact Psych/Mental Status: Alert and oriented to time, place, person, mood and affect Vital Signs Temp Pulse Resp BP Pulse Ox 99 F 106 H 19 H 113/69 93 05/03/18 06:00 05/03/18 06:00 05/03/18 06:00 05/03/18 06:00 05/03/18 06:00 Oxygen Flow Rate (L/min) 2 Oxygen Delivery Method Room Air Weight: 195 lb 1.745 oz Body Mass Index (BMI) 29.0 Intake and Output for Last 24 Hours 05/01/18 05/02/18 05/03/18 23:59 23:59 23:59 Intake Total 2953.5 / 2953.5 2475.0 / 2475.0 250 / 250 Output Total 2726 / 2726 3060 / 3060 500 / 500 Balance 227.5 / 227.5 -585.0 / -585.0 -250 / -250 Labs (Last 48 Hours) 05/01/18 05/01/18 05/01/18 12:24 12:30 15:05 WBC 12.5 H RBC 4.93 Hgb 15.6 Hct 44.3 MCV 89.9 MCH 31.6 MCHC 35.2 RDW 13.5 RDW Differential 44.1 H Plt Count 191 MPV 11.0 Immature Gran % (Auto) 0.100 Neut % (Auto) 73.2 H Lymph % (Auto) 12.7 L [place] % (Auto) 13.9 H Eos % (Auto) 0.0 Baso % (Auto) 0.1 Absolute Neuts (auto) 9.1 H Absolute Lymphs (auto) 1.59 Total Counted Not Reportable Differential Comment SCANNED APTT 47.9 H Sodium Potassium Chloride Carbon Dioxide Anion Gap BUN Creatinine Estim Creat Clear Calc Est GFR (MDRD) Af Amer Est GFR (MDRD) Non-Af BUN/Creatinine Ratio Glucose Calcium Phosphorus Magnesium POC Glucose 144 H 05/01/18 05/01/18 05/01/18 18:14 18:50 23:37 WBC RBC Hgb Hct MCV MCH MCHC RDW RDW Differential Plt Count MPV Immature Gran % (Auto) Neut % (Auto) Lymph % (Auto) [place] % (Auto) Eos % (Auto) Baso % (Auto) Absolute Neuts (auto) Absolute Lymphs (auto) Total Counted Differential Comment APTT 59.4 H Sodium Potassium Chloride Carbon Dioxide Anion Gap BUN Creatinine Estim Creat Clear Calc Est GFR (MDRD) Af Amer Est GFR (MDRD) Non-Af BUN/Creatinine Ratio Glucose Calcium Phosphorus Magnesium POC Glucose 107 123 H 05/02/18 05/02/18 05/02/18 01:00 04:00 04:00 WBC 9.4 RBC 4.68 Hgb 14.7 Hct 42.0 MCV 89.7 MCH 31.4 MCHC 35.0 RDW 13.5 RDW Differential 43.7 Plt Count 164 MPV 10.4 Immature Gran % (Auto) 0.100 Neut % (Auto) 76.3 H Lymph % (Auto) 11.4 L [place] % (Auto) 11.9 H Eos % (Auto) 0.1 Baso % (Auto) 0.2 Absolute Neuts (auto) 7.2 Absolute Lymphs (auto) 1.07 Total Counted Not Reportable Differential Comment APTT 49.7 H Sodium 137 Potassium 3.4 L Chloride 101 Carbon Dioxide 25.0 Anion Gap 11 BUN 23 H Creatinine 0.96 Estim Creat Clear Calc 94.01 Est GFR (MDRD) Af Amer 108 Est GFR (MDRD) Non-Af 90 BUN/Creatinine Ratio 23.9 H Glucose 122 H Calcium 8.1 L Phosphorus Magnesium 2.5 POC Glucose 05/02/18 05/02/18 05/02/18 04:00 05:36 08:25 WBC RBC Hgb Hct MCV MCH MCHC RDW RDW Differential Plt Count MPV Immature Gran % (Auto) Neut % (Auto) Lymph % (Auto) [place] % (Auto) Eos % (Auto) Baso % (Auto) Absolute Neuts (auto) Absolute Lymphs (auto) Total Counted Differential Comment APTT 49.2 H Sodium Potassium Chloride Carbon Dioxide Anion Gap BUN Creatinine Estim Creat Clear Calc Est GFR (MDRD) Af Amer Est GFR (MDRD) Non-Af BUN/Creatinine Ratio Glucose Calcium Phosphorus 1.5 L Magnesium POC Glucose 117 H 05/03/18 05/03/18 05:10 05:10 WBC 7.0 RBC 4.66 Hgb 14.6 Hct 41.5 MCV 89.1 MCH 31.3 MCHC 35.2 RDW 13.4 RDW Differential 43.3 Plt Count 185 MPV 10.7 Immature Gran % (Auto) 0.100 Neut % (Auto) 71.2 H Lymph % (Auto) 14.1 L [place] % (Auto) 14.1 H Eos % (Auto) 0.4 Baso % (Auto) 0.1 Absolute Neuts (auto) 5.0 Absolute Lymphs (auto) 0.99 Total Counted Not Reportable Differential Comment APTT Sodium 136 Potassium 3.7 Chloride 102 Carbon Dioxide 24.0 Anion Gap 10 BUN 24 H Creatinine 0.89 Estim Creat Clear Calc 101.40 Est GFR (MDRD) Af Amer 119 Est GFR (MDRD) Non-Af 98 BUN/Creatinine Ratio 27.1 H Glucose 102 Calcium 8.2 L Phosphorus 2.8 Magnesium 2.3 POC Glucose Microbiology 05/01/18 15:00 Blood Culture (Wb) - Left Forearm Blood Culture - Preliminary No growth in 48 hours. 05/01/18 20:15 Urine Catheter - New Urine Culture - Preliminary Gram Positive Cocci Clinical Impression(s) from Imaging Studies Chest X-Ray 04/30/18 15:50 IMPRESSION: Intra-arterial blood pressure line ends in the proximal descending aorta. No acute cardiopulmonary findings. Electronically Signed: Luzmaria Zelaya MD at 16:09 EDT , Service support , Chest X-Ray 05/01/18 07:42 IMPRESSION: Stable appearance of intra-arterial blood pressure line. Questionable developing left retrocardiac infiltrate. Electronically Signed: Meng Flowers DO at 8:31 EDT Tel , Service support , Chest X-Ray 05/01/18 15:20 IMPRESSION: No demonstrated acute cardiopulmonary process. Electronically Signed: Cynthia Antonio MD at 15:42 EDT Tel , Service support , ADDENDUM: 05/01/18 1623 Chest X-Ray 05/02/18 05:25 IMPRESSION: Stable aortic balloon pump location. Progressing bibasilar atelectasis and alveolar disease. Electronically Signed: Jem Landers MD at 7:01 EDT Tel , Service support , Chest X-Ray 05/03/18 05:50 IMPRESSION: Left lower lobe subsegmental atelectasis versus pneumonia slightly improved on the frontal view. Electronically Signed: Kwame Denny MD at 6:48 EDT , Service support , Medical Necessity - Tobacco Use Smoking Status: Current every day smoker Tobacco Use: Cigarettes Assessment/Plan All Active Problems (Last Updated 04/30/18 @ 16:41 by Hina Pruett) Atherosclerotic heart disease of [place] coronary artery with unstable angina pectoris (Acute 04/30/18) Stented coronary artery (Acute 04/30/18) ST elevation myocardial infarction (STEMI) of anterior wall (Acute) Chest pain (Acute) RECOMMENDATIONS: 1. Continue diuretic regimen per cardiology recommendations. 2. Continue scheduled bronchodilators. 3. Encourage incentive spirometer use. 4. Perform walking oximetry study prior to consideration for discharge from the hospital. 5. Ideally, the patient needs to follow-up in the pulmonary medicine clinic so that baseline pulmonary function testing to be obtained. IMPRESSIONS: 1. Acute hypoxic respiratory insufficiency Likely secondary to the acute events leading up to his hospitalization including acute systolic heart failure/ischemic cardiomyopathy coupled with atelectasis and the possibility for underlying obstructive lung disease. The patient has been weaned from supplemental oxygen at this time and is maintaining appropriate saturations on room air. Recommend continuing diuretic therapy per cardiology recommendations. Continue scheduled duo nebs accordingly. Encourage incentive spirometer use. The patient is currently afebrile and his repeat plain film chest x-ray from this morning appears to be more concerning for atelectasis than an evolving infiltrative process. In addition, he denies the presence of shortness of breath or cough. Therefore, I do not feel that it is imperative that he be started on antibiotics. The patient undoubtedly needs to follow-up in the pulmonary medicine clinic so that baseline pulmonary function testing can be completed. 2. Ischemic cardiomyopathy status post PTCA with SAMANTHA placement to proximal LAD/acute systolic CHF Continue current supportive measures with medical management per cardiology recommendations. 3. Hypertension/hyperlipidemia/history of tobacco use Complicates care, management, recovery and prognosis. Smoking cessation is strongly advisable. This note was generated with [employer] software. It may contain incorrect words, spelling, and punctuation that were not noted in checking the note before signing. DISPOSITION: The patient is medically stable for transfer out of the intensive care unit. Given the patient's lack of ongoing ICU/pulmonary needs, will sign off. Please call with any additional questions. Recommend the patient follow-up in the pulmonary medicine clinic within 2 weeks of his discharge from the hospital. Code Visit Inpatient E&M: [id number] [facility] Hosp L3
--- NOTE | 2018-05-03 07:27 | PN_ITS ---
Subjective: The patient was seen and examined at the bedside this morning. Events from the last 24 hours have been reviewed. The patient is currently afebrile, hemodynamically stable and maintaining appropriate oxygen saturations on room air. The patient's intra-aortic balloon pump was successfully removed yesterday without complication. An AP lateral plain film chest x-ray was obtained this morning and personally reviewed. The patient appears to have a component of left basilar atelectasis. The patient denies the presence of shortness of breath or cough this morning. Objective: The patient's most recent lab work, culture data and imaging studies have all been personally reviewed. Blood and urine cultures are currently pending. Cardiac catheterization revealed single-vessel coronary artery disease of the ostial LAD along with segmental LV systolic dysfunction with an ejection fraction of 45%. The patient underwent successful PTCA of the proximal LAD with a SAMANTHA. Surface echocardiogram revealed mild concentric LVH with an ejection fraction of 25-30% along with stage I diastolic dysfunction.` General: Alert, Oriented x3, Cooperative, No apparent distress HEENT: Atraumatic, PERRLA, Normocephalic Oral: No Gingival or Mucosal Lesions/ Ulcerations Neck: Supple, No Nodes, Trachea Midline Lungs: No rhonchi, No wheeze, No rales, Diminished Cardiovascular: Regular rate, Regular Rhythm, Normal S1, Normal S2, No murmurs Abdomen: Bowel Sounds Present, Soft, Non Tender Extremities: No clubbing, No cyanosis, No edema Skin: No breakdown Musculoskeletal: No Tenderness to Palpation of Joints or Extremities, No Muscle Wasting Lymphatic: No Cervical, Supraclavicular, or Inguinal Adenopathy Neurological: Neuro grossly intact Psych/Mental Status: Alert and oriented to time, place, person, mood and affect Vital Signs Temp Pulse Resp BP Pulse Ox 99 F 106 H 19 H 113/69 93 05/03/18 06:00 05/03/18 06:00 05/03/18 06:00 05/03/18 06:00 05/03/18 06:00 Oxygen Flow Rate (L/min) 2 Oxygen Delivery Method Room Air Weight: 195 lb 1.745 oz Body Mass Index (BMI) 29.0 Intake and Output for Last 24 Hours 05/01/18 05/02/18 05/03/18 23:59 23:59 23:59 Intake Total 2953.5 / 2953.5 2475.0 / 2475.0 250 / 250 Output Total 2726 / 2726 3060 / 3060 500 / 500 Balance 227.5 / 227.5 -585.0 / -585.0 -250 / -250 Labs (Last 48 Hours) 05/01/18 05/01/18 05/01/18 12:24 12:30 15:05 WBC 12.5 H RBC 4.93 Hgb 15.6 Hct 44.3 MCV 89.9 MCH 31.6 MCHC 35.2 RDW 13.5 RDW Differential 44.1 H Plt Count 191 MPV 11.0 Immature Gran % (Auto) 0.100 Neut % (Auto) 73.2 H Lymph % (Auto) 12.7 L [place] % (Auto) 13.9 H Eos % (Auto) 0.0 Baso % (Auto) 0.1 Absolute Neuts (auto) 9.1 H Absolute Lymphs (auto) 1.59 Total Counted Not Reportable Differential Comment SCANNED APTT 47.9 H Sodium Potassium Chloride Carbon Dioxide Anion Gap BUN Creatinine Estim Creat Clear Calc Est GFR (MDRD) Af Amer Est GFR (MDRD) Non-Af BUN/Creatinine Ratio Glucose Calcium Phosphorus Magnesium POC Glucose 144 H 05/01/18 05/01/18 05/01/18 18:14 18:50 23:37 WBC RBC Hgb Hct MCV MCH MCHC RDW RDW Differential Plt Count MPV Immature Gran % (Auto) Neut % (Auto) Lymph % (Auto) [place] % (Auto) Eos % (Auto) Baso % (Auto) Absolute Neuts (auto) Absolute Lymphs (auto) Total Counted Differential Comment APTT 59.4 H Sodium Potassium Chloride Carbon Dioxide Anion Gap BUN Creatinine Estim Creat Clear Calc Est GFR (MDRD) Af Amer Est GFR (MDRD) Non-Af BUN/Creatinine Ratio Glucose Calcium Phosphorus Magnesium POC Glucose 107 123 H 05/02/18 05/02/18 05/02/18 01:00 04:00 04:00 WBC 9.4 RBC 4.68 Hgb 14.7 Hct 42.0 MCV 89.7 MCH 31.4 MCHC 35.0 RDW 13.5 RDW Differential 43.7 Plt Count 164 MPV 10.4 Immature Gran % (Auto) 0.100 Neut % (Auto) 76.3 H Lymph % (Auto) 11.4 L [place] % (Auto) 11.9 H Eos % (Auto) 0.1 Baso % (Auto) 0.2 Absolute Neuts (auto) 7.2 Absolute Lymphs (auto) 1.07 Total Counted Not Reportable Differential Comment APTT 49.7 H Sodium 137 Potassium 3.4 L Chloride 101 Carbon Dioxide 25.0 Anion Gap 11 BUN 23 H Creatinine 0.96 Estim Creat Clear Calc 94.01 Est GFR (MDRD) Af Amer 108 Est GFR (MDRD) Non-Af 90 BUN/Creatinine Ratio 23.9 H Glucose 122 H Calcium 8.1 L Phosphorus Magnesium 2.5 POC Glucose 05/02/18 05/02/18 05/02/18 04:00 05:36 08:25 WBC RBC Hgb Hct MCV MCH MCHC RDW RDW Differential Plt Count MPV Immature Gran % (Auto) Neut % (Auto) Lymph % (Auto) [place] % (Auto) Eos % (Auto) Baso % (Auto) Absolute Neuts (auto) Absolute Lymphs (auto) Total Counted Differential Comment APTT 49.2 H Sodium Potassium Chloride Carbon Dioxide Anion Gap BUN Creatinine Estim Creat Clear Calc Est GFR (MDRD) Af Amer Est GFR (MDRD) Non-Af BUN/Creatinine Ratio Glucose Calcium Phosphorus 1.5 L Magnesium POC Glucose 117 H 05/03/18 05/03/18 05:10 05:10 WBC 7.0 RBC 4.66 Hgb 14.6 Hct 41.5 MCV 89.1 MCH 31.3 MCHC 35.2 RDW 13.4 RDW Differential 43.3 Plt Count 185 MPV 10.7 Immature Gran % (Auto) 0.100 Neut % (Auto) 71.2 H Lymph % (Auto) 14.1 L [place] % (Auto) 14.1 H Eos % (Auto) 0.4 Baso % (Auto) 0.1 Absolute Neuts (auto) 5.0 Absolute Lymphs (auto) 0.99 Total Counted Not Reportable Differential Comment APTT Sodium 136 Potassium 3.7 Chloride 102 Carbon Dioxide 24.0 Anion Gap 10 BUN 24 H Creatinine 0.89 Estim Creat Clear Calc 101.40 Est GFR (MDRD) Af Amer 119 Est GFR (MDRD) Non-Af 98 BUN/Creatinine Ratio 27.1 H Glucose 102 Calcium 8.2 L Phosphorus 2.8 Magnesium 2.3 POC Glucose Microbiology 05/01/18 15:00 Blood Culture (Wb) - Left Forearm Blood Culture - Preliminary No growth in 48 hours. 05/01/18 20:15 Urine Catheter - New Urine Culture - Preliminary Gram Positive Cocci Clinical Impression(s) from Imaging Studies Chest X-Ray 04/30/18 15:50 IMPRESSION: Intra-arterial blood pressure line ends in the proximal descending aorta. No acute cardiopulmonary findings. Electronically Signed: Luzmaria Zelaya MD at 16:09 EDT , Service support , Chest X-Ray 05/01/18 07:42 IMPRESSION: Stable appearance of intra-arterial blood pressure line. Questionable developing left retrocardiac infiltrate. Electronically Signed: Meng Flowers DO at 8:31 EDT Tel , Service support , Chest X-Ray 05/01/18 15:20 IMPRESSION: No demonstrated acute cardiopulmonary process. Electronically Signed: Cynthia Antonio MD at 15:42 EDT Tel , Service support , ADDENDUM: 05/01/18 1623 Chest X-Ray 05/02/18 05:25 IMPRESSION: Stable aortic balloon pump location. Progressing bibasilar atelectasis and alveolar disease. Electronically Signed: Jem Landers MD at 7:01 EDT Tel , Service support , Chest X-Ray 05/03/18 05:50 IMPRESSION: Left lower lobe subsegmental atelectasis versus pneumonia slightly improved on the frontal view. Electronically Signed: Kwame Denny MD at 6:48 EDT , Service support , Medical Necessity - Tobacco Use Smoking Status: Current every day smoker Tobacco Use: Cigarettes Assessment/Plan All Active Problems (Last Updated 04/30/18 @ 16:41 by Hina Pruett) Atherosclerotic heart disease of [place] coronary artery with unstable angina pectoris (Acute 04/30/18) Stented coronary artery (Acute 04/30/18) ST elevation myocardial infarction (STEMI) of anterior wall (Acute) Chest pain (Acute) RECOMMENDATIONS: 1. Continue diuretic regimen per cardiology recommendations. 2. Continue scheduled bronchodilators. 3. Encourage incentive spirometer use. 4. Perform walking oximetry study prior to consideration for discharge from the hospital. 5. Ideally, the patient needs to follow-up in the pulmonary medicine clinic so that baseline pulmonary function testing to be obtained. IMPRESSIONS: 1. Acute hypoxic respiratory insufficiency Likely secondary to the acute events leading up to his hospitalization including acute systolic heart failure/ischemic cardiomyopathy coupled with atelectasis and the possibility for underlying obstructive lung disease. The patient has been weaned from supplemental oxygen at this time and is maintaining appropriate saturations on room air. Recommend continuing diuretic therapy per cardiology recommendations. Continue scheduled duo nebs accordingly. Encourage incentive spirometer use. The patient is currently afebrile and his repeat plain film chest x-ray from this morning appears to be more concerning for atelectasis than an evolving infiltrative process. In addition, he denies the presence of shortness of breath or cough. Therefore, I do not feel that it is imperative that he be started on antibiotics. The patient undoubtedly needs to follow-up in the pulmonary medicine clinic so that baseline pulmonary function testing can be completed. 2. Ischemic cardiomyopathy status post PTCA with SAMANTHA placement to proximal LAD/acute systolic CHF Continue current supportive measures with medical management per cardiology recommendations. 3. Hypertension/hyperlipidemia/history of tobacco use Complicates care, management, recovery and prognosis. Smoking cessation is strongly advisable. This note was generated with [employer] software. It may contain incorrect words, spelling, and punctuation that were not noted in checking the note before signing. DISPOSITION: The patient is medically stable for transfer out of the intensive care unit. Given the patient's lack of ongoing ICU/pulmonary needs, will sign off. Please call with any additional questions. Recommend the patient follow- up in the pulmonary medicine clinic within 2 weeks of his discharge from the hospital. Code Visit Inpatient E&M: [id number] [facility] Hosp L3
--- NOTE | 2018-05-03 08:19 | PN.CARD_ITS ---
Subjectve: Patient seen and evaluated. Appears to be doing much better this morning. No complaints about the chest or the leg. Objective: Vital Signs Temp Pulse Resp BP Pulse Ox 99 F 94 19 H 107/76 96 05/03/18 06:00 05/03/18 08:00 05/03/18 08:00 05/03/18 08:00 05/03/18 08:00 Oxygen Flow Rate (L/min) 2 Oxygen Delivery Method Room Air Weight: 195 lb 1.745 oz Body Mass Index (BMI) 29.0 Intake and Output for Last 24 Hours 05/01/18 05/02/18 05/03/18 23:59 23:59 23:59 Intake Total 2953.5 / 2953.5 2475.0 / 2475.0 250 / 250 Output Total 2726 / 2726 3060 / 3060 500 / 500 Balance 227.5 / 227.5 -585.0 / -585.0 -250 / -250 General: Awake, Alert, Oriented x 3 HEENT: PERRL, EOMI, Sclera Non Icteric Neck: Supple, Good ROM, No Lymph Node Enlargement Lungs: Clear to auscultation Cardiovascular: Regular Rhythm, Normal S1, Normal S2, No Murmurs, No Rubs, No Gallops Vascular: No Carotid Bruits, Normal Femoral Pulses, Normal Radial Pulses, Normal Dorsalis Pedal Pulse, Normal Posterior Tibial Pulses Abdomen: Bowel Sounds Present, Soft, Non Tender, No HSM, No Organomegaly Extremities: No Cyanosis, No Clubbing, No edema Neurological: No Focal Motor or Sensory Deficit 05/02/18 08:25: APTT 49.2 H 05/03/18 05:10: WBC 7.0, RBC 4.66, Hgb 14.6, Hct 41.5, MCV 89.1, MCH 31.3, MCHC 35.2, RDW 13.4, RDW Differential 43.3, Plt Count 185, MPV 10.7, Immature Gran % (Auto) 0.100, Neut % (Auto) 71.2 H, Lymph % (Auto) 14.1 L, [place] % (Auto) 14.1 H, Eos % (Auto) 0.4, Baso % (Auto) 0.1, Absolute Neuts (auto) 5.0, Total Counted Not Reportable 05/03/18 05:10: Sodium 136, Potassium 3.7, Chloride 102, Carbon Dioxide 24.0, Anion Gap 10, BUN 24 H, Creatinine 0.89, Est GFR (MDRD) Af Amer 119, Est GFR (MDRD) Non-Af 98, BUN/Creatinine Ratio 27.1 H, Glucose 102, Calcium 8.2 L, Phosphorus 2.8, Magnesium 2.3 Rhythm: EKG: ECHO: Stress Test: Cardiac Cath: PCI: CT Surgery: Holter monitor: EPS: PPM: CXR: Chest CT Scan: Medical Necessity - Tobacco Use Smoking Status: Current every day smoker Tobacco Use: Cigarettes Assessment/Plan 1. Coronary artery disease: Patient presents with delayed presentation anterior wall myocardial infarction with substantial clot burden in the proximal mid and distal LAD with successful emergent angioplasty and drug-eluting stenting x3 to the distal mid and proximal LAD. Had IABP placed and successfully removed without incident. Echocardiogram demonstrates proximal mid and apical anterior akinesis, with overall ejection fraction around 25-30%. Heart rate is improved with diuretic therapy. Would recommend continuing Coreg 3.125 mg p.o. twice daily, continuing Diovan, and continuing Lasix 40 mg po daily. Patient will continue baby aspirin, Brilinta. Patient has had no arrhythmias. We will continue high intensity statin. Okay to transfer to the progressive care unit. 2. LV dysfunction: Hopefully with emergent intervention, intrinsic balloon pump, medical therapy, and cardiac rehab his LV function will improve. We will repeat his echocardiogram at the conclusion of cardiac rehab. 3. Hyperlipidemia: Continue statin based medications. Overall patient continues to do well.
--- NOTE | 2018-05-03 08:20 | NURSING ---
Report called to Rosio GARZA.
[2018-05-03] MEDS: Aspirin 81 MG TAB.CHEW PO (09:04)
[2018-05-03] MEDS: Famotidine 20 MG Tablet PO ×2 (09:04→22:11)
[2018-05-03] MEDS: Furosemide 40 MG Tablet PO (09:04)
[2018-05-03] MEDS: TICAGRELOR 90 MG TABLET PO ×2 (09:04→22:11)
[2018-05-03] MEDS: Carvedilol 3.125 MG TABLET PO ×2 (09:05→22:11)
--- NOTE | 2018-05-03 10:00 | EKG12_ITS ---
Test Reason : AMEKG Blood Pressure : / mmHG Vent. Rate : 087 BPM Atrial Rate : 087 BPM P-R Int : 172 ms QRS Dur : 092 ms QT Int : 364 ms P-R-T Axes : 062 085 037 degrees QTc Int : 438 ms Normal sinus rhythm Anteroseptal infarct , possibly acute ACUTE MT / STEMI Abnormal ECG When compared with ECG of 02-MAY-2018 05:45, MANUAL COMPARISON REQUIRED, DATA IS UNCONFIRMED Confirmed by JAGUAR HERNADEZ, LUZMARIA ([id number]), editor city ION LOPEZ ([id number]) on 05/06/2018 3:46:03 PM Referred By: KANCHAN Confirmed By:LUZMARIA MONTESINOS MD
[2018-05-03] MEDS: Atorvastatin Calcium 80 MG Tablet PO (22:11)
[2018-05-04] VITALS (7 sets, daily range): BP systolic 96–116; BP diastolic 61–63; PULSE 89–93; RESP 14–18; TEMP 37.2–37.4; O2SAT 91–94
[2018-05-04 05:54] LABS: Absolute Lymphocyte Count 0.97 X10^3/ul (0.83-4.51); Basophil# 0.03 X10^3/uL; Basophil% 0.5 % (0-1); Eosinophil# 0.06 X10^3/uL; Hematocrit 40.9 % (40-54); Hemoglobin 14.5 g/dl (13.0-16.5); Lymphocyte # 0.97 X10^3/ul (4.0); Lymphocyte % 15.7 % (19-41); Mean Corp Hgb Conc 35.5 g/gl (32-36); Mean Corpuscular Hgb 31.5 pg (27.0-32.0); Mean Corpuscular Volume 88.9 fL (80-94); Mean Platelet Vol. 10.5 fl (6.2-12.0); Monocyte# 1.04 X10^3/uL; Monocyte% 16.9 % (0-10); Neutrophil # 4.04 X10^3/uL (2.7-7.7); Neutrophil % 65.4 % (47-70); Platelet Count 214 K/mm3 (150-450); RBC Distribution Width CV 13.2 % (11.6-14.6); White Blood Count 6.2 K/mm3 (4.4-11.0)
[2018-05-04 06:09] LABS: POSITIVE COUNT NO; POSITIVE DIFFERENTIAL NO; POSITIVE MORPHOLOGY NO
[2018-05-04] MEDS: Enoxaparin 40 MG/0.4 ML Syringe SC (06:14)
[2018-05-04 06:24] LABS: Anion Gap 9 (5-15); BUN 28 mg/dL (7-18); BUN/Creat Ratio 33.3 RATIO (10-20); Calcium,Total 8.4 mg/dL (8.5-10.1); Chloride 102 mmol/L (98-107); Creatinine, Serum 0.84 mg/dL (0.70-1.30); EST Glomerular Filtration Rate 105 mL/min (>60); Est Glom Filt Rate - Afr Amer 127 mL/min (>60); Estimated Creatinine Clearance 107.44 ml/min; Glucose 103 mg/dL (74-106); Magnesium 2.4 mg/dL (1.6-2.6); Phosphorus 3.4 mg/dL (2.5-4.9); Potassium 3.6 mmol/L (3.5-5.1); Sodium Level 135 mmol/L (136-145)
[2018-05-04] MEDS: Ipratropium/Albuterol Sulfate 3 ML AMPUL.NEB INHALATION (06:30)
[2018-05-04 08:21] LABS: ACT Activated Clotting Time 131 sec (74-137)
[2018-05-04] MEDS: Aspirin 81 MG TAB.CHEW PO (08:37)
[2018-05-04] MEDS: Carvedilol 3.125 MG TABLET PO (08:37)
[2018-05-04] MEDS: Furosemide 40 MG Tablet PO (08:38)
[2018-05-04] MEDS: TICAGRELOR 90 MG TABLET PO (08:38)
[2018-05-04] MEDS: Famotidine 20 MG Tablet PO (08:38)
--- NOTE | 2018-05-04 09:05 | PCM.PN.CARD ---
Subjectve: Patient continues to improve, and denies any fevers or chills. He had a low-grade temperature this morning but his white blood cell count and left shift are decreasing appropriately. Patient ambulated in his room yesterday without difficulty. Telemetry negative for arrhythmias while on PCU. EKG shows normal sinus rhythm with persistent anterior ST segment elevation and Q waves in anterior leads. No chest pain. Objective: Vital Signs Temp Pulse Resp BP Pulse Ox 99.4 F H 93 18 116/63 94 05/04/18 08:31 05/04/18 08:31 05/04/18 08:31 05/04/18 08:31 05/04/18 08:31 Oxygen Flow Rate (L/min) 2 Oxygen Delivery Method Room Air Weight: 189 lb 6.033 oz Body Mass Index (BMI) 29.0 Intake and Output for Last 24 Hours 05/02/18 05/03/18 05/04/18 23:59 23:59 23:59 Intake Total 2475.0 / 2475.0 1515 / 1515 240 / 240 Output Total 3060 / 3060 500 / 500 Balance -585.0 / -585.0 1015 / 1015 240 / 240 General: Awake, Alert, Oriented x 3 HEENT: PERRL, EOMI, Sclera Non Icteric Neck: Supple, Good ROM, No Lymph Node Enlargement Lungs: Clear to auscultation Cardiovascular: Regular Rhythm, Normal S1, Normal S2, No Murmurs, No Rubs, No Gallops Vascular: No Carotid Bruits, Normal Femoral Pulses, Normal Radial Pulses, Normal Dorsalis Pedal Pulse, Normal Posterior Tibial Pulses Abdomen: Bowel Sounds Present, Soft, Non Tender, No HSM, No Organomegaly Extremities: No Cyanosis, No Clubbing, No edema Neurological: No Focal Motor or Sensory Deficit 05/04/18 05:42: WBC 6.2, RBC 4.60, Hgb 14.5, Hct 40.9, MCV 88.9, MCH 31.5, MCHC 35.5, RDW 13.2, RDW Differential 43.0, Plt Count 214, MPV 10.5, Immature Gran % (Auto) 0.500, Neut % (Auto) 65.4, Lymph % (Auto) 15.7 L, [place] % (Auto) 16.9 H, Eos % (Auto) 1.0, Baso % (Auto) 0.5, Absolute Neuts (auto) 4.0, Total Counted Not Reportable 05/04/18 05:42: Sodium 135 L, Potassium 3.6, Chloride 102, Carbon Dioxide 24.0, Anion Gap 9, BUN 28 H, Creatinine 0.84, Est GFR (MDRD) Af Amer 127, Est GFR (MDRD) Non-Af 105, BUN/Creatinine Ratio 33.3 H, Glucose 103, Calcium 8.4 L, Phosphorus 3.4, Magnesium 2.4 Rhythm: EKG: ECHO: Stress Test: Cardiac Cath: PCI: CT Surgery: Holter monitor: EPS: PPM: CXR: Chest CT Scan: Medical Necessity - Tobacco Use Smoking Status: Current every day smoker Tobacco Use: Cigarettes Assessment/Plan 1. Coronary artery disease: Patient presents with delayed presentation anterior wall myocardial infarction with substantial clot burden in the proximal mid and distal LAD with successful emergent angioplasty and drug-eluting stenting x3 to the distal mid and proximal LAD. Intruding balloon pump placed due to severe LV dysfunction and probable impending cardiogenic shock. Patient is doing better this morning, tolerating his medicines well. Heparin drip infusion keeping PTT above 50. Troponins are trending downwards. Echocardiogram demonstrates proximal mid and apical anterior akinesis, with overall ejection fraction around 25-30%. Recommend he continue his baby aspirin, Brilinta, Diovan, Coreg, and Lasix 40 mg p.o. daily. He is euvolemic at this time. Would recommend that he ambulate through the hallways today, and if he has no further issues and no arrhythmias, no further fevers, and no issues, he may be discharged home tomorrow morning. 2. LV dysfunction: Hopefully with emergent intervention, intrinsic balloon pump, medical therapy, and cardiac rehab his LV function will improve. We will repeat his echocardiogram at the conclusion of cardiac rehab. 3. Hyperlipidemia: Continue statin based medications. 4. Thank you very much for the opportunity to participate in the cardiac care of your patient. Code Visit Inpatient E&M: 19980 Subs Hosp L2
--- NOTE | 2018-05-04 09:34 | PCM.DC ---
- Discharge Diagnoses Current Active Problems: Current Active and Chronic Problems (Last Updated 04/30/18 @ 16:41 by Hina Pruett) (1) Chest Pain secondary to Acute Anterior STEMI (CAD w/ PTCA and SAMANTHA to proximal LAD using thrombectomy followed by POBA, followed by 4.0 X 16 mm Promus Synergy; SAMANTHA to 100% stenosed mid LAD: 2.5 X 24 Promus Synergy; SAMANTHA to 85% stenosed distal LAD : 2.5 X 24 Promus Synergy) (2) Acute Systolic CHF Exacerbation secondary to #1 (Acute Anterior STEMI) and Ischemic Cardiomyopathy (3) Hypoxia secondary to #1, #2 and Suspected Underlying Pulmonary Disease/Chronic COPD w/ prolonged history of Tobacco use (4) Fever, Suspected Stress Response, Bld Cx x 2 without growth, CXR and repeat with atelectasis (5) Hypertension (6) Hyperlipidemia (7) Hyperglycemia, likely stress response, hemoglobin A1c 5.3%. (8) Tobacco Abuse (9) Electrolyte Deficiencies You will use the following diet at home:: Cardiac Your food should be the consistency of: Regular Your liquids should be the consistency of: Regular/Thin Discharge Activity: - - Continue limited activity parametes per Cardiology discretion until cleared for increased activity. Cardiology is setting you up for cardiac rehabilitation. Weight Bearing Status: Weight bearing as tolerated Call your doctor if your incision/area has: Continuous Slow Oozing, Sudden Increased Bleeding, Increased Pain/ Swelling, Increased Redness, Foul Smelling Discharge, Swelling at the incision site Call your doctor if you observe: Fever of 101 or Higher, Inability to urinate, Inability to have a bowel movement, Shortness of breath, Dizziness, Fainting spells, Chest pain, Uncontrolled pain Instructions: First Aid: Heart Attacks, Understanding Coronary Artery Disease (CAD), Discharge Instructions for Heart Attack, Taking Blood Thinners After Percutaneous Coronary Intervention (PCI), Lifestyle Management After Percutaneous Coronary Intervention (PCI), Controlling High Blood Pressure, Controlling Your Cholesterol, Cholesterol Medications, Why Do You Smoke?, Planning to Quit Smoking, Getting Support for Quitting Smoking, Coping with Smoking Withdrawal, Staying Smoke-Free, Tips for Quitting Smoking (Cardiovascular) Additional Instructions: Please continue your new medications. Please continue with case management/social work assistance program for the costly medications. Please do not hesitate to contact the PCU floor and ask for the complex case manager and social workers for any assitance or concerns. It is vital that you take the medications that you have been prescribed. Please also continue to remain tobacco free. Allergies/Adverse Reactions: Allergies No Known Allergies Allergy (Verified 04/30/18 10:01) Medications to take at Discharge Aspirin [Aspirin, Baby] 81 mg PO DAILY@0800 #30 tab.chew 05/04/18 Atorvastatin Calcium [Lipitor] 80 mg PO QHS #30 tablet 05/04/18 Carvedilol [Coreg (Beta Naty)] 3.125 mg PO BID #60 tablet 05/04/18 Furosemide [Lasix] 40 mg PO DAILY #30 tablet 05/04/18 Ticagrelor [Brilinta] 90 mg PO BID #60 tablet 05/04/18 Valsartan [Diovan] 80 mg PO DAILY #30 tablet 05/04/18 The following prescriptions were given: Aspirin [Aspirin, Baby] 81 mg PO DAILY@0800 #30 tab.chew Atorvastatin Calcium [Lipitor] 80 mg PO QHS #30 tablet Furosemide [Lasix] 40 mg PO DAILY #30 tablet Valsartan [Diovan] 80 mg PO DAILY #30 tablet Carvedilol [Coreg (Beta Naty)] 3.125 mg PO BID #60 tablet Ticagrelor [Brilinta] 90 mg PO BID #60 tablet Orders to be completed after discharge: Phase II, Outpatient Cardiac Rehab Location: None Selected Primary Care Physician: Care Physician,No Primary [Primary Care Provider] - Please follow up with your Primary Care Physician in: Please establish w/ PCP and follow-up within 3-5 days. Test Results: Test results from this visit will be discussed in further detail at your follow-up appointment, if applicable. Please Follow Up With: Mark Rushing MD When: Please follow-up as requested or 1 week. Proposed Discharge Date: 05/04/18
--- NOTE | 2018-05-04 09:48 | PCM.DC.SUM ---
Discharge Date and Diagnosis Date of Admission: 04/30/18 Date of Discharge: 05/04/18 - Primary Discharge Diagnosis Active and Suspected Problems (Last Updated 04/30/18 @ 16:41 by Hina Pruett) (1) Chest Pain secondary to Acute Anterior STEMI (CAD w/ PTCA and SAMANTHA to proximal LAD using thrombectomy followed by POBA, followed by 4.0 X 16 mm Promus Synergy; SAMANTHA to 100% stenosed mid LAD: 2.5 X 24 Promus Synergy; SAMANTHA to 85% stenosed distal LAD : 2.5 X 24 Promus Synergy) (2) Acute Systolic CHF Exacerbation secondary to #1 (Acute Anterior STEMI) and Ischemic Cardiomyopathy (3) Hypoxia secondary to #1, #2 and Suspected Underlying Pulmonary Disease/Chronic COPD w/ prolonged history of Tobacco use (4) Fever, Suspected Stress Response, Bld Cx x 2 without growth, CXR and repeat with atelectasis (5) Hypertension (6) Hyperlipidemia (7) Hyperglycemia, likely stress response, hemoglobin A1c 5.3%. (8) Tobacco Abuse (9) Electrolyte Deficiencies - Secondary Discharge Diagnosis Chronic Problems (Last Updated 04/30/18 @ 16:41 by Hina Pruett) Tobacco use (Chronic) HTN (hypertension) (Chronic) HLD (hyperlipidemia) (Chronic) Hospital Course and Treatment Dr. Rushing/Dr. Menjivar Cardiology Dr. Amaro/Dr. Rico ICU Operations: None Procedures: Cardiac catheterization, EKG, - - Cardiac balloon pump placement Summary of Care Provided: The patient is a 47 y/o M w/ PMHx: Tobacco use who presented to the [facility] ED on 04/30/18 with history of onset midsternal chest pressure, rated 11/10 with radiation toward the back between his scapular with associated dyspnea, diaphoresis but no nausea or emesis starting this past Friday, intermittent, waxing and waning he notes, worse with any exertion but more severe episode ~ 20-30 minutes prior to ED arrival. ED presentation work-up included 98, heart rate 127, BP 120/80, respiratory rate 20, 96% on room air, BC with WC 12.5, hemoglobin 17.6, platelet 199 with left shift, unremarkable coags except activated clotting time 202, BMP with glucose 133, troponin 74.4, urine drug screen negative, EKG w/ sinus rhythm with ST segment elevation in the anterior leads. STEMI immediately called and patient administered Brilinta load, heparin bolus, aspirin therapy. Cardiac Catheterization w/ single-vessel CAD of the LAD with successful PTCA/SAMANTHA of the proximal LAD using thrombectomy in addition to the mid and distal LAD with continued balloon pump in place with transition to the ICU following. Noted evidence of severe segmented LV systolic dysfunction with LVEF 45%. Discussion with cardiology and given patient's notable findings on cardiac catheterization continued balloon pump in place with transition per cardiology discretion with continued aspirin, Brilinta, Integrilin drip to completion now transitioned back to heparin drip until balloon pump removal 05/02/18 11 am, high-dose statin with AM FLP w/ TG 145, TChol 162, LDL 96, LDL 29, HDL 37, Coreg, losartan. ECHO with EF 25-30%, stage I diastolic dysfunction, unable to estimate RV systolic pressure due to inadequate jet with pulmonary artery pressure likely normal, severely hypokinetic basal anterior septal region, akinetic mid anterior region, akinetic anterior apex, akinetic apex with no comparison study. Mag 1.6, supplemented. Phos 1.5, supplemented. Cardiac enzyme trending w/ Trop 74.4-->>200-->172-->125. Given presentation, improvement, 05/02/18 ~ 11 am balloon pump discontinuation. Repeat CXR 05/03/18, atelectasis, discussed with ICU and deferred abx therapy. Given stability transferred to PCU per discussion with ICU staff and Cardiology service without any further issues and no telemetry overnight. CM/SW assisted patient in paperwork for medication assistance. Patient during admission w/ additionally Acute Systolic CHF Exacerbation secondary to #1 (Acute Anterior STEMI) and Ischemic Cardiomyopathy w/ ECHO as already noted, maintained on aspirin, Coreg, intermittent PRN IV Lasix-->oral lasix regimen, diovan, brillinta and high dose statin therapy. Patient Hypoxia secondary his acute presentation and suspected underlying ulmonary Disease/Chronic COPD w/ prolonged history of Tobacco use: Desaturations w/ activity, resting upon initial transition to the ICU, weaned off oxygen overnight 05/01-05/02, less dyspnea noted. Will continue ATC duonebs, PRN albuterol, HOB, IS parameters. Upon discharge requested pulmonary following discharge for PFTs and walking oximetry testing. Repeat CXR PA and Lateral 05/03/18, atelectasis, and patient fever improved thus abx therapy not initiated. CBC remained not marked appearing without any WBC elevation or marked L shift. Respiratory viral panel negative, UCx w/ 25,000-50,000 GPC but asymptomatic, Bld Cx x 2 without growth. Admission glucose 133, likely stress response, hemoglobin A1c 5.3%. Encouraged tobacco cessation, inpatient consultation per RT, deferred NR given admission presentation history. Patient discharged to home in stable condition with recommended PCP, Cardiology and Pulmonary follow-up. CM/SW assisted w/ cost of medication with planned paperwork fill out per family for assistance w/ more costly regimen, i.e. Brillinta. Patient discharged to home in stable condition with no further chest discomfort or any arrhythmias on telemetry. DAY OF DISCHARGE PROGRESS NOTE: Subjective: Patient without acute event overnight per self and nursing report. Patient notes he is feeling well and denies any further chest discomfort. Patient very eager for discharge. Patient understands recommendations for tobacco cessation. Patient understands he will need to take these medications and understands that he needs to fill out paperwork for patient assistance. Patient denies fever, chills, nausea, emesis, abdominal pain or dyspnea. Patient agreeable to discharge to home. Patient will be discharged with follow-up with primary care physician within 3-5 days in addition to Cardiology in 1 week and Pulmonary in 2 weeks. Objective: T 99, heart rate 93, BP 116/63, respiratory rate 18, 94% on room air. Physical Examination: General: awake, alert, oriented x 3 and cooperative, seated upright in the bed, smiling, NAD. Skin: normal color, turgor, no icterus, cyanosis, R groin without bleeding, s/p balloon pump removal. HEENT: AT/NC, EOMI, PERRLA, MMM. Lungs: Improved, mild decreased BL bases, improved effort, no rales, ronchi or wheezing; Heart: Regular rate and rhythm; no gallop, rub audible. Abdomen: soft, NTTP, ND, normal BS. Extremities: no cyanosis, clubbing, or edema. Neurological: patient awake, alert, oriented x 3; cognitive function appears intact upon questioning,; pupils equally reactive to light and accomodation; cranial nerves II-XII grossly normal, moving all 4 extremities, strength improved, mildly globally decreased. Psychiatric: affect appears normal, no acute evidence of depressive or anxiety feelings. Assessment and Plan: Please see hospital summary above. Discharge Activity: - - Continue limited activity parametes per Cardiology discretion until cleared for increased activity. Cardiology is setting you up for cardiac rehabilitation. Weight Bearing Status: Weight bearing as tolerated Call your doctor if your incision/area has: Continuous Slow Oozing, Sudden Increased Bleeding, Increased Pain/ Swelling, Increased Redness, Foul Smelling Discharge, Swelling at the incision site Call your doctor if you observe: Fever of 101 or Higher, Inability to urinate, Inability to have a bowel movement, Shortness of breath, Dizziness, Fainting spells, Chest pain, Uncontrolled pain Home Medications: Medications to take at Discharge Aspirin [Aspirin, Baby] 81 mg PO DAILY@0800 #30 tab.chew 05/04/18 Atorvastatin Calcium [Lipitor] 80 mg PO QHS #30 tablet 05/04/18 Carvedilol [Coreg (Beta Naty)] 3.125 mg PO BID #60 tablet 05/04/18 Furosemide [Lasix] 40 mg PO DAILY #30 tablet 05/04/18 Ticagrelor [Brilinta] 90 mg PO BID #60 tablet 05/04/18 Valsartan [Diovan] 80 mg PO DAILY #30 tablet 05/04/18 Following Prescrptions Were Given to Patient: Aspirin [Aspirin, Baby] 81 mg PO DAILY@0800 #30 tab.chew Atorvastatin Calcium [Lipitor] 80 mg PO QHS #30 tablet Furosemide [Lasix] 40 mg PO DAILY #30 tablet Valsartan [Diovan] 80 mg PO DAILY #30 tablet Carvedilol [Coreg (Beta Naty)] 3.125 mg PO BID #60 tablet Ticagrelor [Brilinta] 90 mg PO BID #60 tablet Other Amb Orders: Phase II, Outpatient Cardiac Rehab Location: None Selected Primary Care Physician: Care Physician,No Primary [Primary Care Provider] - Please follow up with your Primary Care Physician in: Please establish w/ PCP and follow-up within 3-5 days. Please Follow Up With: Mark Rushing MD When: Please follow-up as requested or 1 week. Patient Instructions: Cholesterol Medications, Controlling Your Cholesterol, Controlling High Blood Pressure, Tips for Quitting Smoking (Cardiovascular), First Aid: Heart Attacks, Why Do You Smoke?, Planning to Quit Smoking, Getting Support for Quitting Smoking, Coping with Smoking Withdrawal, Staying Smoke-Free, Understanding Coronary Artery Disease (CAD), Discharge Instructions for Heart Attack, Taking Blood Thinners After Percutaneous Coronary Intervention (PCI), Lifestyle Management After Percutaneous Coronary Intervention (PCI) Disposition: Home Minutes spent on discharge:: 35 Patient Condition:: Fair Medical Necessity - Tobacco Use Smoking Status: Current every day smoker Tobacco Use: Cigarettes Meaningful Use Info Meaningful Use Diagnoses (Choose all that apply): AMI - AMI Aspirin given w/in 24hrs of arrival?: Yes ASA at discharge?: Yes Statins at discharge?: Yes Sy/ARB at discharge?: Yes Beta Naty at discharge?: Yes Done w/ Acute CT measure.: Yes Code Visit Inpatient E&M: 29603 Disch Hosp
--- NOTE | 2018-05-04 10:20 | CASEMGMT ---
Utilized [facility] Indigent Medication Program for patient. ALEXANDRO tubed necessary information to [facility]. ALEXANDRO also called [facility] and let Kadi know we are utilizing indigent program. Maria Eugenia SAEED MSW
--- NOTE | 2018-05-04 10:38 | CASEMGMT ---
KAYLA AGUILAR Note. Spoke with pt and regarding dc medications, appointments PCP. PCP list had been given to pt, reviewed with them. KAYLA AGUILAR stressed importance of f/u with cardiology on dc. psychiatric secretary notified to make f/u appointment. Pt states he will be able to go to f/u. -Discussed prescription cost and Brillinta financial assistance. Reviewed forms again with and pt including supporting documentation needed. they again do not wish to complete in hospital, but will complete at home. Instructed them to bring to first cardiology appointment. They are agreeable. -Call to Isadora with Dr. Rushing's office. Notified of Brillinta assist. Per Isadora they will complete in office and assist family with this. No further intervention needed by KAYLA AGUILAR @ [facility]. Script for assist faxed to Dr. Rushing's office to be completed. -Pharmacy assistance for 30 day supply of all prescriptions arranged by SW. Grace
--- NOTE | 2018-05-04 16:45 | NURSING ---
Message left on answering machine regarding need to make follow up appointment with Dr. 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 Instructed to call the hospital with any questions.
== END 2018-05-04 12:38 | disposition home or self-care (01) | DRG 270 ==
LOC: ED 10:06 → ICU 11:59 → PCU 05-03 08:22
PROVIDERS: Internal Medicine Cardiovascular Disease; Internal Medicine Critical Care Medicine; Admitting Provider Family Medicine; Emergency Provider Emergency Medicine; Visit Provider Family Medicine
DX: I21.09 ST elevation (STEMI) myocardial infarction involving other coronary artery of anterior wall (principal); I50.23 Acute on chronic systolic (congestive) heart failure; J98.11 Atelectasis; I11.0 Hypertensive heart disease with heart failure; J44.9 Chronic obstructive pulmonary disease, unspecified; E78.5 Hyperlipidemia, unspecified; E87.6 Hypokalemia; E83.39 Other disorders of phosphorus metabolism; I25.5 Ischemic cardiomyopathy; R09.02 Hypoxemia; I25.110 Atherosclerotic heart disease of native coronary artery with unstable angina pectoris; F17.210 Nicotine dependence, cigarettes, uncomplicated
CPT/HCPCS: 33967; 36415; 71045; 71046; 80048; 80061; 80307; 82962; 83036; 83735; 84100; 84484; 85025; 85027; 85347; 85610; 85730; 87040; 87070; 87077; 87086; 87088; 87186; 87205; 87633; 87641; 92941; 93005; 93306; 93458; 94640; 99152; 99285; J7030; J7040; J7050; Q9957; A4216; C1725; C1757; C1769; C1874; C1887; C8929; C9606; J1940; J7799; Q9967

== ENCOUNTER → 2018-05-11 13:02 | Outpatient (CLI) | payer SELFPAY ==
--- NOTE | 2018-05-11 13:09 | PCM.CR.HP2 ---
CR - History & Physical - General Arrival date:: 05/11/18 Arrival time:: 13:14 Date of Referral:: 05/11/18 Date of CR Evaluation:: 05/11/18 Referring Physician: Dr. Amy Rushing Primary Diagnosis: PCI - History of Present Cardiac Event Onset Date: Enter Onset Date of cardiac illnesses in Comment field below Current stable Angina Pectoris:: Yes - Some pressure in chest on Friday with activity. Acute Myocardial Infarction within 12 months:: Yes - 04/30/18 Coronary Artery Bypass Graft:: No Heart valve replacement or repair:: No PTCA or coronary stenting:: No Heart or Heart-Lung Transplant:: No Heart Failure EF <35%:: Yes - 25-30% Type of Symptoms:: Chest pain, SOB, back and shoulder to neck pain started 04/27/18. Interventions with present event:: Heart cath Were there any complications?: no - Medications Home Medications: Ambulatory Orders Medication Instructions Recorded Albuterol IH (ProAir) [Proair Hfa] 1 - 2 puff INHALATION Q4H PRN PRN 05/04/18 #1 inhaler Aspirin [Aspirin, Baby] 81 mg PO DAILY@0800 #30 tab.chew 05/04/18 Atorvastatin Calcium [Lipitor] 80 mg PO QHS #30 tablet 05/04/18 Carvedilol [Coreg (Beta Naty)] 3.125 mg PO BID #60 tablet 05/04/18 Fluticasone/Salmeterol [Advair 1 each IH BID #1 blst.w.dev 05/04/18 250-50 Diskus] Furosemide [Lasix] 40 mg PO DAILY #30 tablet 05/04/18 Ticagrelor [Brilinta] 90 mg PO BID #60 tablet 05/04/18 Valsartan [Diovan] 80 mg PO DAILY #30 tablet 05/04/18 - Allergies Allergies/Adverse Reactions: Allergies No Known Allergies Allergy (Verified 04/30/18 10:01) - Sleep Disorder Evaluation Hx of Sleep Apnea: No Do you snore loudly (louder than talking or can be heard through closed doors)?: Yes Do you often feel tired/ fatigued/ sleepy during daytime?: Yes Has anyone observed you stop breathing during sleep?: No History of Hypertension (for STOP score): No STOP Results: Positive Advanced Directives - Advanced Directives Power of Lacquer Mixer: No Living Will: No Advance Directives Information Provided: Yes Advance Directives on File: No DNR Order?:: No - MOLST See MOLST form: No Past Medical History - Past Medical Illness Medical History: Past Medical History (Last Updated 04/30/18 @ 16:41 by Hina Pruett) Atherosclerotic heart disease of [place] coronary artery with unstable angina pectoris (Acute) Onset Date: 04/30/18 I25.110 PTCA and SAMANTHA to proximal LAD using thrombectomy followed by POBA, followed by 4.0 X 16 mm Promus Synergy; SAMANTHA to 100% stenosed mid LAD: 2.5 X 24 Promus Synergy; SAMANTHA to 85% stenosed distal LAD : 2.5 X [address] elevation myocardial infarction (STEMI) of anterior wall (Acute) I21.09 Tobacco use (Chronic) Z72.0 HTN (hypertension) (Chronic) I10 Chest pain (Acute) R07.9 - Past Surgical History Surgical History: Past Surgical History (Last Updated 04/30/18 @ 16:41 by Hina Pruett) Stented coronary artery (Acute) Onset Date: 04/30/18 Z95.5 PTCA and SAMANTHA to proximal LAD using thrombectomy followed by POBA, followed by 4.0 X 16 mm Promus Synergy; SAMANTHA to 100% stenosed mid LAD: 2.5 X 24 Promus Synergy; SAMANTHA to 85% stenosed distal LAD : 2.5 X 24 Promus Synergy. Surgical History: no surgical history Social History - Smoking History Smoking Status: Former smoker Years Smokin Packs Smoked per Day: 1 Hx Smoking Cessation Date: 04/27/18 Hx Tobacco Use: No Hx Smoking Exposure: Yes - some at work - Alcohol Use Alcohol Usage: Yes - occas beer, wine - Substance Abuse Hx Substance Use: No - Occupation Occupation (List type of work in comments):: Employed Hours worked per day:: 10 - Hobbies, Recreation, Social Activities Hobbies: Other - watch jets Recreational Activities: I am able to engage in all my recreational activities Social Environment - Status Marital Status: - Current Living Arrangements Living Environment:: Spouse - Children How many children do you have?: 7 Do any of your children live nearby?: Yes - Safety Do you feel safe in your surroundings?: Yes - Assistance Do you need any assistance at home?: no Review of Systems - Review of Systems Hints: Right click = Denies (Slash). Left click = Reports ([place]) Review of Present Symptoms: Reports: Shortness of Breath with Exertion, Angina, Dizziness/Lightheadedness - yes, upon arising or looking up while walking., Fatigue, Appetite - Special Diet - cardiac diet., Sleep - Normal. Denies: Shortness of Breath at Rest, PVD, Operative Discomfort, Wound Healing, Heart Arrhythmia/Irregularities, Appetite - Normal, Sexual Changes - Pain Is Patient Pain Free?: No Risk Factor Assessment - Chief Complaint Chief Complaint: Cardiac Rehab - Pulse Pulse Rate: 76 Pulse Rhythm: Regular - Hypertension Blood Pressure Sitting - Right Arm: 96/70 Blood Pressure Sitting - Left Arm: 90/70 - Diabetes Nutrition Referral for Diabetes: No - Obesity Height: 1.73 m Weight:: 85.729 kg Weight in Pounds: 189.0 lbs Weight Source: Stated by Patient Body Mass Index (BMI): 28.7 Desired Body Weight: 165 Realistic Weight Goal (Loss of 1-2 lbs/week): 175 Nutritional Referral for Obesity: No - Physical Inactivity Physical Inactivity: Reg Exercise 30 min/day, Recreational activity - Risk Stratification Risk Guidelines: Lowest Risk: Risk Factor for Diabetes, Risk Factor for Hypertension, Risk Factor for Sedentary Lifestyle, Risk Factor for Depression, Moderate Risk: Risk Factor for Smoking, Risk Factor for Dyslipidemia, Risk Factor for Obesity - For Smoking Smoking Risk Guidelines: Smoking Low Risk: None or quit greater than 6 months ago. Smoking Moderate Risk: Smoker or quit 6 months or less ago. Smoking High Risk: Smoker - For Dyslipidemia Dyslipidemia Risk Guidelines: Low Risk: Moderate Risk: High Risk: 15-25% fat 25.1-29% fat >/= 30% fat. <7% sat fat 7-9% sat fat >9% sat fat. <150 mg chol 150-299 mg chol >/= 300 mg chol. LDL <100 LDL 100-129 LDL >/= 130. Chol/HDL ratio <5.0 Chol/HDL ratio 5.0-6.0 Chol/HDL ratio >6.0. Triglycerides <100 Triglycerides 100-149 Triglycerides >/= 150 - For Diabetes Mellitus Diabetes Risk Guidelines: Diabetes Low Risk: HgA1c <6.5% and/or FBG <120. Diabetes Moderate Risk: HgA1c 6.6-7.9% and/or FBG 120-180. Diabetes High Risk: HgA1c >/= 8% and/or FBG >180 - For Obesity/Overweight Obesity/Overweight Risk Guidelines: Obesity Low Risk: BMI <25.0. Obesity Moderate Risk: BMI 25-29.9. Obesity High Risk: BMI >/= 30.0 - For Hypertension Hypertension Risk Guidelines: Hypertension Low Risk: Systolic <120 and Diastolic <80. Hypertension Moderate Risk: Systolic 120-139 and Diastolic 80-89. Hypertension High Risk: Systolic >/= 140 and Diastolic >/= 90 - For Sedentary Lifestyle Sedentary Lifestyle Risk Guidelines: Sedentary Lifestyle Low Risk: >/= 1,500 kcal/week. Sedentary Lifestyle Moderate Risk: 700-1,499 kcal/week. Sedentary Lifestyle High Risk: < 700 kcal/week - For Depression Depression Risk Guidelines: Depression Low Risk: Not clinically depressed. Depression Moderate Risk: Mildly depressed. Depression High Risk: Clinically depressed Motivation - Motivation to Participate On a scale of 1 to 10, how prepared are you to commit to attending program?: 7
--- NOTE | 2018-05-11 13:15 | CR.ITP_ITS ---
General Information - General Information Admitting Diagnosis: PCI - Education/Goals Barriers to Learning: None Individual Counseling: Initial Assessment: Nicotine/Smoking, Abnormal Cholesterol Levels, Overweight/Obesity Cardiac Rehabilitation Goals: 1. Maintain the individual as the primary focus of care. 2. To improve the patient's quality of life. 3. Identification of cardiac risk factors and provide cardiac risk factor management. 4. Enhance the psychosocial status of the patient. 5. Reconditioning enough to allow the patient to resume customary activities. 6. Control symptoms of cardiac disease Scale for measuring improvement of personal goals: Enter appropriate number in Comments. 2 = Unchanged. 3 = Slightly Better. 4 = Moderate Improvement. 5 = Met my Goal Personal Goals: Initial Assessment: Quit smoking (participate in smoking cessation, Improve energy level, Get back to work, or to resume activities faster, Improve knowledge of cardiac disease, Improve muscle strength and endurance, Improve diet and eating habits (eat healthier) Exercise - Initial Assessment - Visit Date of Eval: 05/11/18 - Stages of Change Stages of Change:: Action - Exercise Prescription Mode:: Treadmill, Biodyne, Rower, Airdyne, NuStep Angina with exercise?: Yes - Hypertension Do any of the following apply?: Yes - Education Goals:: Warm-up, RPE OH Scale, S/S, Safe Exercise, Self-Monitoring - Exercise Program Goals Exercise Program Goals: Aerobic Activity >30 min Nutrition - Initial Assessment - Program Goals Nutrition Program Goals: LDL <70. Total Cholesterol <200. HDL >45. Triglycerides <150. HgbA1C <7%. BMI <25 - Visit Date of Assessment:: 05/11/18 - Stages of Change Stages of Change:: Action - Lipids Lipid Medication: yes - Diabetes Diabetes:: No - Weight Management Height: 1.73 m Weight:: 85.729 kg Body Fat %:: 29 Goal % Body Fat:: 24 - Intervention Referral to dietitian:: No Referral to Diabetic Clinic:: No Will attend diet classes:: Yes - Education Gave educational materials for:: Healthy eating Tobacco - Initial Assessment - Program Goals Tobacco Program Goals: Complete smoking cessation. Attend education classes. Improve Knowledge Test score - Stage of Change Stages of Change:: Action - Learning Barriers Learning Barriers: Ready to Learn Total Score:: 11 - Family Support Do you have family support?: Yes - Tobacco Use Tobacco Use: Cigarettes How long ago did you quit using tobacco products?: Less than 6 months ago Years Smokin Do you use smokeless tobacco?: No - Intervention Smoking Cessation Referral:: Yes Individual Education/Counseling:: Yes Education Schedule Given:: Yes - Education Gave educational material for:: Tobacco triggers, Coronary artery disease, Risk factors, Sexuality, Medical compliance, Cardiac A&P, Angina signs & symptoms Psychosocial - Initial Assess - Target Goals Target Goals: Assess presence or absence of depression. Using a valid screening tool, maximizes coping skills. Positive support system - Stages of Change Stages of Change:: Action - Psychosocial Test Tool Used:: HANDS Depression Questionnaire Self-reported stress:: no Total Mood Screening Score:: 7 Self-Efficacy Score:: 5 - Intervention PS - Interventions: Yes Attend Stress Management Classes, Yes Uses Stress Management Skills, No Referral to Mental Health, No Referral to [facility] Case Management, No Referral to Physician - Education Gave educational materials for:: Coping techniques, Signs & symptoms of depression, Stress management, Relaxation techniques - Patient/Program Goal Preventative Medication(s):: Aspirin, BRICE inhibitor, Clopidogrel, Beta radha, Statin/lipid - Assistive Devices Assistive Devices:: None Fall Risk Assessed:: Yes Patient Health Questionnaire Initial Assessment 1. Little interest or pleasure in doing things: Several days 2. Feeling down, depressed, or hopeless: Not at all 3. Trouble falling or staying asleep, or sleeping too much: Not at all 4. Feeling tired or having little energy: Nearly every day 5. Poor appetite or overeating: Several days 6. Feeling bad about yourself -- or that you are a failure or have let yourself or your family down: Several days 7. Trouble concentrating on things, such as reading the newspaper or watching television: Not at all 8. Moving or speaking so slowly that other people could have noticed. Or the opposite - being so fidgety or restless that you have been moving around a lot more than usual: Several days 9. Thoughts that you would be better off , or of hurting yourself in some way: Not at all How difficult have these problems made it for you to do your work, take care of things at home, or get along with other people?: Not difficult at all Total Score: 7 VICKY-Q SV Test - Statements CAD is a disease of the arteries in the heart: True Examples of risk factors for heart disease: True Angina is chest pain or discomfort: True The benefits of resistance training include: I Don't Know Eating more meat and dairy products: False Anti-platelet medications such as aspirin are important: I Don't Know The only effective way to manage stress: False An exercise warm-up slowly increases heart rate: True Prepared, processed foods usually have high sodium: I Don't Know Depression is common after a heart attack: I Don't Know The statin medications lower cholesterol: I Don't Know To control blood pressure, lower the amount of sodium: True If someone gets chest discomfort during walking: False Transfats are partially hydrogenated vegetable oils: True Sleep apnea that is not treated increases the risk: False To control cholesterol, one should become a vegetarian: I Don't Know Someone knows if he/she is exercising at the right level: True Diabetes cannot be prevented with exercise & health eating: True Stress is a large risk for heart attack: I Don't Know A diet that can help lower blood pressure is rich in: True - Total Score Total Correct Responses: 11 Self-Efficacy Initial Assessment We would like to know how confident you are in doing certain activities. Please select your confidence level for:: Select your confidence level for the following using the scale 1-10 where 1 is not at all confident and 10 is totally confident. Your score is the average of all 6 responses. Fatigue: How confident are you that you can keep the fatigue caused by your disease from interfering with the things you want to do? Select Number: 5 Physical Discomfort or Pain: How confident are you that you can keep the physical discomfort or pain of your disease from interfering with the things you want to do? Select Number: 6 Emotional Distress: How confident are you that you can keep the emotional distress caused by your disease from interfering with the things you want to do? Select Number: 7 Other Symptoms or Health Problems: How confident are you that you can keep other symptoms or health problems from interfering with the things you want to do? Select Number: 3 Different Tasks and Activities: How confident are you that you can do the different tasks and activities needed to manage your health condition so as to reduce your need to see a doctor? Select Number: 5 Medication: How confident are you that you can do things other than just taking medication to reduce how much your illness affects your everyday life? Select Number: 8 Total Score:: 5 Nutrition Survey - Nutrition Survey Instructions Scoring Instructions: Scoring is as follows: Yes = 1 points. No = 0 point. Patient score that is >/=12 is considered to be at potential nutritional risk and could benefit from a referral to a registered dietitian. - Nutrition Survey Initial Have you lost >10 lbs over the past 2 months without trying?: Yes Are you following a special diet at home for diabetes, low fat, or low salt?: No Are you interested in meeting with a dietitian for help understanding your diet?: No Do you eat less than 3 meals a day?: No Do you eat fatty meats (waters, sausage, ribs, etc), fried foods, desserts, large amounts of salad dressings, margarine, butter, or cheese most days?: Yes Do you have food allergies? [Enter types in comment field]: No Do you eat in restaurants more than 3 times a week?: No Do you season food with salt, seasoning salt, or garlic salt?: Yes Do you used canned, boxed, frozen meals, or soups, seasoning packets?: No Total Score:: 3
[2018-05-11 14:03] VITALS: BP 90/70; BP 96/70; PULSE 76; BMI 28.7
== END ==
PROVIDERS: Visit Provider Internal Medicine Cardiovascular Disease
DX: Z95.5 Presence of coronary angioplasty implant and graft (principal); I25.110 Atherosclerotic heart disease of native coronary artery with unstable angina pectoris; I25.2 Old myocardial infarction; I10 Essential (primary) hypertension; Z72.0 Tobacco use

== ENCOUNTER 2018-05-18 06:27 | Outpatient (RCR) | payer OTHER, SELFPAY | END 2018-05-27 23:59 | LOC: CR 06:27 | PROVIDERS: Referring Provider Internal Medicine Cardiovascular Disease; Visit Provider Internal Medicine Cardiovascular Disease | DX: I21.09 ST elevation (STEMI) myocardial infarction involving other coronary artery of anterior wall (principal); I25.110 Atherosclerotic heart disease of native coronary artery with unstable angina pectoris; Z95.5 Presence of coronary angioplasty implant and graft | CPT/HCPCS: 93798 ==

== ENCOUNTER → 2018-06-22 06:12 | Outpatient (CLI) | payer SELFPAY ==
[2018-06-11 11:40] VITALS: BMI 28.8
[2018-06-22 09:15] LABS: AST(SGOT) 25 U/L (15-37); Alanine Aminotransfer ALT/SGPT 68 U/L (16-61); Albumin, Serum 3.6 g/dL (3.2-5.0); Alkaline Phosphatase 83 U/L (45-117); Bilirubin, Direct 0.16 mg/dL (0.00-0.30); Cholesterol 106 mg/dL (200); Globulin 3.2 g/dL (2.2-4.2); High Density Lipoprotein 29 mg/dL; Protein, Total 6.8 g/dL (6.4-8.2); Triglycerides 102 mg/dL; Very Low Density Lipoprotein 20 mg/dL (5-40)
== END ==
PROVIDERS: Referring Provider Internal Medicine Cardiovascular Disease; Visit Provider Internal Medicine Cardiovascular Disease
DX: E78.00 Pure hypercholesterolemia, unspecified (principal); I25.110 Atherosclerotic heart disease of native coronary artery with unstable angina pectoris
CPT/HCPCS: 36415; 80061; 80076

== ENCOUNTER 2018-07-27 08:00 | Outpatient (RCR) | payer OTHER, SELFPAY ==
[2018-06-11 11:40] VITALS: BMI 28.8
== END 2018-07-27 23:59 ==
LOC: CR 08:00
PROVIDERS: Referring Provider Internal Medicine Cardiovascular Disease; Visit Provider Internal Medicine Cardiovascular Disease
DX: I21.09 ST elevation (STEMI) myocardial infarction involving other coronary artery of anterior wall (principal); I25.110 Atherosclerotic heart disease of native coronary artery with unstable angina pectoris; Z95.5 Presence of coronary angioplasty implant and graft
CPT/HCPCS: 93798

== ENCOUNTER 2018-08-26 08:00 | Outpatient (RCR) | payer OTHER, SELFPAY ==
[2018-06-11 11:40] VITALS: BMI 28.8
--- NOTE | 2018-07-29 08:51 | CR.ITP_ITS ---
General Information - General Information Admitting Diagnosis: PCI - Education/Goals Barriers to Learning: None Cardiac Rehabilitation Goals: 1. Maintain the individual as the primary focus of care. 2. To improve the patient's quality of life. 3. Identification of cardiac risk factors and provide cardiac risk factor management. 4. Enhance the psychosocial status of the patient. 5. Reconditioning enough to allow the patient to resume customary activities. 6. Control symptoms of cardiac disease Scale for measuring improvement of personal goals: Enter appropriate number in Comments. 2 = Unchanged. 3 = Slightly Better. 4 = Moderate Improvement. 5 = Met my Goal Exercise - 30-day Assessment - Visit Date of Eval: 07/29/18 Session #:: 12 - Stages of Change Stages of Change:: Action - Exercise Prescription Mode:: Treadmill, Airdyne, NuStep Frequency (x/week): 3 Duration:: 35 METs - Progression: 0.5-1 MET as tolerated: 5 Target Heart Rate:: 140-148 Max HR 148 - Hypertension Resting Blood Pressure:: 104/80 Peak Exercise Blood Pressure:: 110/80 - Intervention Home Exercise/Activity Goal:: Sitting Time <3 hrs/day - Education Goals:: Warm-up, RPE OH Scale, S/S, Safe Exercise, Self-Monitoring - Exercise Program Goals Exercise Program Goals: Aerobic Activity >30 min, B/P <130/80 Nutrition - 30-Day Assessment - Program Goals Nutrition Program Goals: LDL <70. Total Cholesterol <200. HDL >45. Triglycerides <150. HgbA1C <7%. BMI <25 - Visit Date of Eval: 07/29/18 - Stages of Change Stages of Change:: Action - Weight Management Weight:: 91.172 kg - Intervention Referral to dietitian:: No Referral to Diabetic Clinic:: No Will attend diet classes:: Yes - Education Attended class for:: Signs & symptoms of hypoglycemia, Signs & symptoms of hyperglycemia, Relate diabetes to coronary artery disease, Healthy eating Tobacco - Initial Assessment - Program Goals Tobacco Program Goals: Complete smoking cessation. Attend education classes. Improve Knowledge Test score - Learning Barriers Learning Barriers: Ready to Learn Tobacco - 30-Day Assessment - Program Goals Tobacco Program Goals: Complete smoking cessation. Attend education classes. Improve Knowledge Test score - Stage of Change Stages of Change:: Action - Learning Barriers Learning Barriers: Participates in education - Family Support Do you have family support?: Yes - Tobacco Use Do you use smokeless tobacco?: No - Intervention Smoking Cessation Referral:: Yes Individual Education/Counseling:: Yes Education Schedule Given:: Yes - Education Attended class for:: Tobacco triggers, Coronary artery disease, Risk factors, Sexuality, Medical compliance, Cardiac A&P, Angina signs & symptoms Psychosocial - Initial Assess - Target Goals Target Goals: Assess presence or absence of depression. Using a valid screening tool, maximizes coping skills. Positive support system - Psychosocial Test Tool Used:: HANDS Depression Questionnaire - Assistive Devices Fall Risk Assessed:: Yes Psychosocial - 30-Day Assess - Target Goals Target Goals: Assess presence or absence of depression. Using a valid screening tool, maximizes coping skills. Positive support system - Stages of Change Stages of Change:: Action - Psychosocial Test Tool Used:: HANDS Depression Questionnaire - Intervention PS - Interventions: Yes Attend Stress Management Classes, Yes Uses Stress Management Skills, No Referral to Mental Health, No Referral to [facility] Case Management, No Referral to Physician - Education Attended classes for:: Coping techniques, Signs & symptoms of depression, Stress management, Relaxation techniques - Assistive Devices Assistive Devices:: None Fall Risk Assessed:: Yes Patient Health Questionnaire 30-Day Re-eval Assessment 1. Little interest or pleasure in doing things: Several days 2. Feeling down, depressed, or hopeless: Not at all 3. Trouble falling or staying asleep, or sleeping too much: Not at all 4. Feeling tired or having little energy: Nearly every day 5. Poor appetite or overeating: Several days 6. Feeling bad about yourself -- or that you are a failure or have let yourself or your family down: Several days 7. Trouble concentrating on things, such as reading the newspaper or watching television: Not at all 8. Moving or speaking so slowly that other people could have noticed. Or the opposite - being so fidgety or restless that you have been moving around a lot m ore than usual: Several days 9. Thoughts that you would be better off , or of hurting yourself in some way: Not at all How difficult have these problems made it for you to do your work, take care of things at home, or get along with other people?: Not difficult at all Total Score: 7 Self-Efficacy 30-Day Re-eval Assessment We would like to know how confident you are in doing certain activities. Please select your confidence level for:: Select your confidence level for the following using the scale 1-10 where 1 is not at all confident and 10 is totally confident. Your score is the average of all 6 responses. Fatigue: How confident are you that you can keep the fatigue caused by your disease from interfering with the things you want to do? Select Number: 5 Physical Discomfort or Pain: How confident are you that you can keep the physical discomfort or pain of your disease from interfering with the things you want to do? Select Number: 6 Emotional Distress: How confident are you that you can keep the emotional distress caused by your disease from interfering with the things you want to do? Select Number: 7 Other Symptoms or Health Problems: How confident are you that you can keep other symptoms or health problems from interfering with the things you want to do? Select Number: 3 Different Tasks and Activities: How confident are you that you can do the different tasks and activities needed to manage your health condition so as to reduce your need to see a doctor? Select Number: 5 Medication: How confident are you that you can do things other than just taking medication to reduce how much your illness affects your everyday life? Select Number: 8 Total Score:: 5
[2018-07-29 08:53] VITALS: BP 104/80; BP 110/80
== END 2018-08-27 23:59 ==
LOC: CR 08:00
PROVIDERS: Referring Provider Internal Medicine Cardiovascular Disease; Visit Provider Internal Medicine Cardiovascular Disease
DX: I21.09 ST elevation (STEMI) myocardial infarction involving other coronary artery of anterior wall (principal); I25.110 Atherosclerotic heart disease of native coronary artery with unstable angina pectoris; Z95.5 Presence of coronary angioplasty implant and graft
CPT/HCPCS: 93798

== ENCOUNTER 2018-09-21 08:00 | Outpatient (RCR) | payer OTHER, SELFPAY ==
[2018-06-11 11:40] VITALS: BMI 28.8
[2018-08-28 00:50] VITALS: BP 104/80; BP 110/80
--- NOTE | 2018-08-31 09:11 | CR.ITP_ITS ---
General Information - General Information Admitting Diagnosis: Z95.5 - Education/Goals Cardiac Rehabilitation Goals: 1. Maintain the individual as the primary focus of care. 2. To improve the patient's quality of life. 3. Identification of cardiac risk factors and provide cardiac risk factor management. 4. Enhance the psychosocial status of the patient. 5. Reconditioning enough to allow the patient to resume customary activities. 6. Control symptoms of cardiac disease Scale for measuring improvement of personal goals: Enter appropriate number in Comments. 2 = Unchanged. 3 = Slightly Better. 4 = Moderate Improvement. 5 = Met my Goal Exercise - 60-Day Assessment - Visit Date of Eval: 08/31/18 Session #:: 26 - Stages of Change Stages of Change:: Action - Exercise Prescription Mode:: Treadmill, Airdyne, NuStep Frequency (x/week): 3 Duration:: 30-45 METs: 7.5 Target Heart Rate:: 140-148 Max HR 153 - Hypertension Resting Blood Pressure:: 98/62 Peak Exercise Blood Pressure:: 106/66 - Intervention Home Exercise/Activity Goal:: Sitting Time <3 hrs/day - Education Goals:: Warm-up, RPE OH Scale, S/S, Safe Exercise, Self-Monitoring - Exercise Program Goals Exercise Program Goals: Aerobic Activity >30 min, B/P <130/80 Nutrition - 60-Day Assessment - Program Goals Nutrition Program Goals: LDL <70. Total Cholesterol <200. HDL >45. Triglycerides <150. HgbA1C <7%. BMI <25 - Visit Date of Eval: 08/31/18 - Stages of Change Stages of Change:: Action - Lipids Has the patient seen the dietitian?: No - Diabetes Diabetes:: No - Weight Management Weight:: 88.904 kg - Intervention Referral to dietitian:: No Referral to Diabetic Clinic:: No Will attend diet classes:: Yes - Education Attended class for:: Signs & symptoms of hypoglycemia, Signs & symptoms of hyperglycemia, Relate diabetes to coronary artery disease, Healthy eating Tobacco - Initial Assessment - Program Goals Tobacco Program Goals: Complete smoking cessation. Attend education classes. Improve Knowledge Test score - Learning Barriers Learning Barriers: Ready to Learn Tobacco - 60-Day Assessment - Program Goals Tobacco Program Goals: Complete smoking cessation. Attend education classes. Improve Knowledge Test score - Stage of Change Stages of Change:: Action - Learning Barriers Learning Barriers: Participates in education - Family Support Do you have family support?: Yes - Tobacco Use Tobacco Use: Non-smoker Do you use smokeless tobacco?: No - Intervention Smoking Cessation Referral:: No Individual Education/Counseling:: No Education Schedule Given:: Yes - Education Attended class for:: Tobacco triggers, Coronary artery disease, Risk factors, Sexuality, Medical compliance, Cardiac A&P, Angina signs & symptoms Psychosocial - Initial Assess - Target Goals Target Goals: Assess presence or absence of depression. Using a valid screening tool, maximizes coping skills. Positive support system - Psychosocial Test Tool Used:: HANDS Depression Questionnaire - Assistive Devices Fall Risk Assessed:: Yes Psychosocial - 60-Day Assess - Target Goals Target Goals: Assess presence or absence of depression. Using a valid screening tool, maximizes coping skills. Positive support system - Stages of Change Stages of Change:: Action - Psychosocial Test Tool Used:: HANDS Depression Questionnaire - Intervention PS - Interventions: Yes Attend Stress Management Classes, Yes Uses Stress Management Skills, No Referral to Mental Health, No Referral to [facility] Case Management, No Referral to Physician - Education Attended classes for:: Coping techniques, Signs & symptoms of depression, Stress management, Relaxation techniques - Assistive Devices Assistive Devices:: None Fall Risk Assessed:: Yes Patient Health Questionnaire 60-Day Re-eval Assessment 1. Little interest or pleasure in doing things: Several days 2. Feeling down, depressed, or hopeless: Not at all 3. Trouble falling or staying asleep, or sleeping too much: Not at all 4. Feeling tired or having little energy: Nearly every day 5. Poor appetite or overeating: Several days 6. Feeling bad about yourself -- or that you are a failure or have let yourself or your family down: Several days 7. Trouble concentrating on things, such as reading the newspaper or watching television: Not at all 8. Moving or speaking so slowly that other people could have noticed. Or the opposite - being so fidgety or restless that you have been moving around a lot more than usual: Several days 9. Thoughts that you would be better off , or of hurting yourself in some way: Not at all How difficult have these problems made it for you to do your work, take care of things at home, or get along with other people?: Not difficult at all Total Score: 7 Self-Efficacy 60-Day Re-eval Assessment We would like to know how confident you are in doing certain activities. Please select your confidence level for:: Select your confidence level for the following using the scale 1-10 where 1 is not at all confident and 10 is totally confident. Your score is the average of all 6 responses. Fatigue: How confident are you that you can keep the fatigue caused by your disease from interfering with the things you want to do? Select Number: 5 Physical Discomfort or Pain: How confident are you that you can keep the physical discomfort or pain of your disease from interfering with the things you want to do? Select Number: 6 Emotional Distress: How confident are you that you can keep the emotional distress caused by your disease from interfering with the things you want to do? Select Number: 7 Other Symptoms or Health Problems: How confident are you that you can keep other symptoms or health problems from interfering with the things you want to do? Select Number: 3 Different Tasks and Activities: How confident are you that you can do the different tasks and activities needed to manage your health condition so as to reduce your need to see a doctor? Select Number: 5 Medication: How confident are you that you can do things other than just taking medication to reduce how much your illness affects your everyday life? Select Number: 8 Total Score:: 5
[2018-08-31 09:14] VITALS: BP 106/66; BP 98/62
== END 2018-09-24 23:59 ==
LOC: CR 08:00
PROVIDERS: Referring Provider Internal Medicine Cardiovascular Disease; Visit Provider Internal Medicine Cardiovascular Disease
DX: I21.09 ST elevation (STEMI) myocardial infarction involving other coronary artery of anterior wall (principal); I25.110 Atherosclerotic heart disease of native coronary artery with unstable angina pectoris; Z95.5 Presence of coronary angioplasty implant and graft
CPT/HCPCS: 93798

== ENCOUNTER → 2018-10-05 08:59 | Outpatient (CLI) | payer SELFPAY ==
[2018-06-11 11:40] VITALS: BMI 28.8
--- NOTE | 2018-10-05 09:02 | ECHOD_ITS ---
Reason For Study: S/P IN Procedure This was a 2D Doppler, Color Flow transthoracic echocardiogram. Exam performed in department. Left Ventricle Mildly dilated left ventricle. Mid cavitary false tendon noted. The estimated ejection fraction is 35-40 %. Normal diastology for age. There are regional wall motion abnormalities as specified. Right Ventricle Mildly dilated right ventricle. Normal systolic function. Atria The left atrium is mildly enlarged. Normal right atrium. Normal atrial septum. Mitral Valve The mitral valve is structurally normal. No prolapse or stenosis seen. Mild (1+) eccentric mitral valve insufficiency. Tricuspid Valve Normal tricuspid valve. Trivial tricuspid valve insufficiency. Right ventricular systolic pressure estimated to be 29 mmHg. Aortic Valve Normal aortic valve. Trisinus/trileaflet aortic valve. Pulmonic Valve Normal pulmonic valve. Great Vessels Normal aortic root. Normal arch. Normal inferior vena cava. Inferior vena cava collapse with sniff. Pericardium/Pleural No pericardial effusion. MMode/2D Measurements & Calculations LVIDd: 5.4 cm IVSd: 0.54 cm Ao root diam: 3.3 cm LVIDs: 4.3 cm LVPWd: 0.86 cm RVDd: 3.6 cm FS: 20.5 % LAV(MOD-bp): 56.2 ml LA A4 area: 21.0 cm2 LA dimension(2D): 4.0 cm LAV(MOD-bp) Indexed: 27.8 ml/m2 LAV(MOD-sp2): 46.4 ml LAV(MOD-sp4): 60.4 ml RA A4 area: 15.3 cm2 Time Measurements MV dec time: 0.16 sec Doppler Measurements & Calculations MV E max jace: 94.8 cm/sec Lat Peak E' Jace: 10.8 cm/sec Med Peak E' Jace: 9.6 cm/sec MV A max jace: 48.0 cm/sec E/E' lat: 8.7 E/E' med: 9.9 MV E/A: 2.0 Ao V2 max: 115.4 cm/sec LV V1 max: 100.9 cm/sec TR max jace: 236.1 cm/sec Ao max P.3 mmHg LV V1 max P.1 mmHg TR max P.3 mmHg Interpretation Summary Mildly dilated left ventricle. The estimated ejection fraction is 35-40 %. Normal diastology for age. There are regional wall motion abnormalities as specified. Mildly dilated right ventricle. The left atrium is mildly enlarged. Mild (1+) eccentric mitral valve insufficiency. Trivial tricuspid valve insufficiency. Right ventricular systolic pressure estimated to be 29 mmHg. There is no comparison study available. Ordering Physician: Mark Rushing Performed By: Dali Orona, SHINE, RVT
== END ==
PROVIDERS: Referring Provider Internal Medicine Cardiovascular Disease; Visit Provider Internal Medicine Cardiovascular Disease
DX: I25.110 Atherosclerotic heart disease of native coronary artery with unstable angina pectoris (principal); I25.2 Old myocardial infarction
CPT/HCPCS: 93306

== ENCOUNTER → 2019-07-30 06:08 | Outpatient (CLI) | payer OTHER, SELFPAY ==
[2019-07-26 13:58] VITALS: BMI 30.7
[2019-07-30 07:58] LABS: AST(SGOT) 28 U/L (15-37); Alanine Aminotransfer ALT/SGPT 64 U/L (16-61); Albumin, Serum 3.9 g/dL (3.2-5.0); Alkaline Phosphatase 75 U/L (45-117); Bilirubin, Direct 0.18 mg/dL (0.00-0.30); Cholesterol 119 mg/dL (200); Globulin 3.1 g/dL (2.2-4.2); High Density Lipoprotein 35 mg/dL; Triglycerides 92 mg/dL; Very Low Density Lipoprotein 18 mg/dL (5-40)
== END ==
PROVIDERS: Referring Provider Internal Medicine Cardiovascular Disease; Visit Provider Internal Medicine Cardiovascular Disease
DX: I25.10 Atherosclerotic heart disease of native coronary artery without angina pectoris (principal); E78.5 Hyperlipidemia, unspecified
CPT/HCPCS: 36415; 80061; 80076

== ENCOUNTER → 2020-02-16 14:38 | Outpatient (CLI) | payer SELFPAY ==
[2020-02-03 15:30] VITALS: BMI 30.7
--- NOTE | 2020-02-16 14:40 | ECHOD_ITS ---
Reason For Study: CHF Procedure This was a 2D Doppler, Color Flow transthoracic echocardiogram. The study was technically difficult. IV for Definity not available. Exam performed in department. Left Ventricle Moderately dilated left ventricle. The estimated ejection fraction is 35 %. Stage 2 diastolic dysfunction. Anterio-Basal: Severely hypokinetic. Basal anteroseptal: Severely Hypokinetic. Mid- Anterior : Akinetic. Mid-anteroseptal : Akinetic. Anterior [place] : Akinetic. There are regional wall motion abnormalities as specified. Right Ventricle Mildly dilated right ventricle. Normal systolic function. Atria Normal left atrium. Normal right atrium. Normal atrial septum. Mitral Valve The mitral valve is structurally normal. No prolapse or stenosis seen. Trivial mitral valve insufficiency. Tricuspid Valve Normal tricuspid valve. Trivial tricuspid valve insufficiency. Right ventricular systolic pressure estimated to be 29 mmHg. Aortic Valve Trisinus/trileaflet aortic valve. Pulmonic Valve The pulmonic valve is not well visualized. Great Vessels Normal aortic root. Normal arch. Normal inferior vena cava. Inferior vena cava collapse with sniff. Pericardium/Pleural No pericardial effusion. MMode/2D Measurements & Calculations LVIDd: 5.6 cm IVSd: 0.54 cm Ao root diam: 3.2 cm LVIDs: 4.2 cm LVPWd: 0.84 cm RVDd: 3.6 cm FS: 25.4 % LAV(MOD-bp): 69.3 ml LA A4 area: 24.8 cm2 LA dimension(2D): 4.1 cm LAV(MOD-bp) Indexed: 34.0 ml/m2 LAV(MOD-sp2): 47.8 ml LAV(MOD-sp4): 79.6 ml RA A4 area: 14.5 cm2 Time Measurements MV dec time: 0.17 sec Doppler Measurements & Calculations MV E max jace: 92.9 cm/sec Lat Peak E' Jace: 9.7 cm/sec Med Peak E' Jace: 8.7 cm/sec MV A max jace: 42.3 cm/sec E/E' lat: 9.5 E/E' med: 10.7 MV E/A: 2.2 Ao V2 max: 107.7 cm/sec LV V1 max: 106.9 cm/sec PA V2 max: 125.0 cm/sec Ao max P.6 mmHg LV V1 max P.6 mmHg TR max jace: 230.5 cm/sec TR max P.5 mmHg Interpretation Summary Moderately dilated left ventricle. The estimated ejection fraction is 35 %. Stage 2 diastolic dysfunction. There are regional wall motion abnormalities as specified. Mildly dilated right ventricle. Trivial mitral valve insufficiency. Trivial tricuspid valve insufficiency. Right ventricular systolic pressure estimated to be 29 mmHg. Compared to echo report dated 10/05/2018, no appreciable changes noted. Ordering Physician: Mark Rushing Referring Physician: Mark Rushing Performed By: Dali Orona, SHINE, RVT
== END ==
PROVIDERS: Referring Provider Internal Medicine Cardiovascular Disease; Visit Provider Internal Medicine Cardiovascular Disease
DX: I25.110 Atherosclerotic heart disease of native coronary artery with unstable angina pectoris (principal); I11.0 Hypertensive heart disease with heart failure; I50.9 Heart failure, unspecified; I25.5 Ischemic cardiomyopathy; E78.5 Hyperlipidemia, unspecified
CPT/HCPCS: 93306; Q9957; A4216

== ENCOUNTER → 2020-06-30 14:56 | Outpatient (CLI) | payer SELFPAY ==
[2020-02-03 15:30] VITALS: BMI 30.7
--- NOTE | 2020-06-30 15:01 | ECHOL_ITS ---
Version 2 Reason For Study: CHF Procedure This was a limited 2D transthoracic echocardiogram. The study was technically difficult. Exam performed in department. Left Ventricle Normal LV size. The estimated ejection fraction is 35 %. Moderately severe segmental systolic dysfunction (see wall motion). [place] : Akinetic. Mid-Anterior : Akinetic. Mid-anteroseptal : Akinetic. Basal anteroseptal: Hypokinetic. Right Ventricle Normal RV size. Normal systolic function. Atria Normal left atrium. Mitral Valve Normal mitral valve. Tricuspid Valve Normal tricuspid valve. Mild tricuspid valve insufficiency. Pericardium/Pleural No pericardial effusion. Medication 22 gauge I.V. with prn adaptor inserted into right arm. Diluted definity 5ml given slow IV push to enhance endocardial definition. MMode/2D Measurements & Calculations LVIDd: 5.4 cm IVSd: 0.64 cm LVAd ap4: 38.1 cm2 LVIDs: 4.5 cm LVPWd: 0.76 cm EDV(MOD-sp4): 140.5 ml FS: 16.6 % EDV(sp4-el): 146.2 ml LVAs ap4: 27.4 cm2 ESV(MOD-sp4): 82.9 ml ESV(sp4-el): 86.3 ml EF(MOD-sp4): 41.0 % EF(sp4-el): 41.0 % SV(MOD-sp4): 57.6 ml SV(sp4-el): 59.9 ml Doppler Measurements & Calculations TR max willie: 210.7 cm/sec TR max P.8 mmHg Interpretation Summary Normal LV size. The estimated ejection fraction is 35 %. Moderately severe segmental systolic dysfunction (see wall motion). [place] : Akinetic. Mid-Anterior : Akinetic. Mid-anteroseptal : Akinetic. Basal anteroseptal: Hypokinetic Mild tricuspid valve insufficiency. Compared to prior study, there is no significant change. Contrast injection was performed. Ordering Physician: Wei Menjivar Referring Physician: Wei Menjivar Performed By: Yani Patricio RDCS
== END ==
PROVIDERS: Referring Provider Internal Medicine Cardiovascular Disease; Visit Provider Internal Medicine Cardiovascular Disease
DX: I25.110 Atherosclerotic heart disease of native coronary artery with unstable angina pectoris (principal); I25.5 Ischemic cardiomyopathy; I11.0 Hypertensive heart disease with heart failure; I50.9 Heart failure, unspecified; I25.2 Old myocardial infarction; E78.5 Hyperlipidemia, unspecified; Z95.5 Presence of coronary angioplasty implant and graft; Z72.0 Tobacco use
CPT/HCPCS: 93308; Q9957; A4216; C8924

== ENCOUNTER → 2020-08-31 09:42 | Outpatient (CLI) | payer SELFPAY ==
[2020-07-27 13:23] VITALS: BMI 30.9
--- NOTE | 2020-08-31 09:45 | ECHOCS_ITS ---
Reason For Study: CARDIOMYOPATHY Procedure This was a 2D Doppler, Color Flow transthoracic echocardiogram. The study was technically difficult. Exam performed in department. Left Ventricle Normal LV size. Moderately severe segmental systolic dysfunction (see wall motion). The estimated ejection fraction is 30 %. Stage 3 diastolic dysfunction. [place] : Akinetic. Mid-anteroseptal : Akinetic. Basal anteroseptal: Hypokinetic. Mid-Inferior: Normal. Posterior-Basal: Normal. Mid- Posterior: Normal. The rest of the wall segments are hypokinetic. Right Ventricle Normal RV size. Normal systolic function. Atria Normal left atrium. Normal right atrium. Mitral Valve Normal mitral valve. Tricuspid Valve Normal tricuspid valve. Aortic Valve The aortic valve is not well visualized. Great Vessels Normal aortic root. Pericardium/Pleural No pericardial effusion. Medication 22 gauge I.V. with prn adaptor inserted into left arm. Diluted definity 4ml given slow IV push to enhance endocardial definition. MMode/2D Measurements & Calculations LVIDd: 5.4 cm IVSd: 0.82 cm Ao root diam: 3.1 cm LVIDs: 4.5 cm LVPWd: 0.88 cm RVDd: 3.8 cm FS: 16.6 % LAV(MOD-bp): 42.6 ml LVAd ap4: 40.4 cm2 SV(MOD-sp4): 62.5 ml LAV(MOD-bp) Indexed: 20.7 ml/m2 EDV(MOD-sp4): 152.9 ml LAV(MOD-sp2): 43.0 ml EDV(sp4-el): 160.8 ml LAV(MOD-sp4): 41.7 ml LVAs ap4: 29.4 cm2 ESV(MOD-sp4): 90.4 ml ESV(sp4-el): 94.3 ml EF(MOD-sp4): 40.9 % EF(sp4-el): 41.3 % SV(sp4-el): 66.4 ml LA A4 area: 16.0 cm2 LA dimension(2D): 3.8 cm RA A4 area: 17.9 cm2 Time Measurements MV dec time: 0.18 sec Doppler Measurements & Calculations MV E max jace: 100.9 cm/sec Lat Peak E' Jace: 11.1 cm/sec Med Peak E' Jace: 9.3 cm/sec MV A max jace: 41.9 cm/sec E/E' lat: 9.1 E/E' med: 10.9 MV E/A: 2.4 Ao V2 max: 116.8 cm/sec LV V1 max: 108.1 cm/sec PA V2 max: 112.8 cm/sec Ao max P.5 mmHg LV V1 max P.7 mmHg Interpretation Summary Normal LV size. Moderately severe segmental systolic dysfunction (see wall motion). The estimated ejection fraction is 30 %. Stage 3 diastolic dysfunction. Contrast injection was performed. Compared to previous study, the left ventricular systolic function has worsened.. Ordering Physician: Wei Menjivar Referring Physician: Wei Menjivar Performed By: Yani Patricio RDCS
== END ==
PROVIDERS: Referring Provider Internal Medicine Cardiovascular Disease; Visit Provider Internal Medicine Cardiovascular Disease
DX: I25.5 Ischemic cardiomyopathy (principal); I25.110 Atherosclerotic heart disease of native coronary artery with unstable angina pectoris; I25.2 Old myocardial infarction; I10 Essential (primary) hypertension; E78.5 Hyperlipidemia, unspecified; Z95.5 Presence of coronary angioplasty implant and graft; Z72.0 Tobacco use
CPT/HCPCS: 93306; Q9957; A4216; C8929

== ENCOUNTER → 2021-02-06 07:43 | Outpatient (CLI) | payer OTHER, SELFPAY ==
[2021-01-24 13:00] VITALS: BMI 30.4
[2021-02-06 08:38] LABS: Anion Gap 8 (5-15); BUN 20 mg/dL (7-18); Calcium,Total 8.7 mg/dL (8.5-10.1); Chloride 103 mmol/L (98-107); Creatinine, Serum 1.11 mg/dL (0.70-1.30); EST Glomerular Filtration Rate 75 mL/min (>60); Est Glom Filt Rate - Afr Amer 91 mL/min (>60); Glucose 139 mg/dL (74-106); Potassium 3.4 mmol/L (3.5-5.1); Sodium Level 138 mmol/L (136-145)
== END ==
PROVIDERS: Referring Provider Internal Medicine Cardiovascular Disease; Visit Provider Internal Medicine Cardiovascular Disease
DX: I42.9 Cardiomyopathy, unspecified (principal)
CPT/HCPCS: 36415; 80048

== ENCOUNTER → 2021-03-30 08:35 | Outpatient (CLI) | payer SELFPAY | PROVIDERS: Visit Provider Internal Medicine Cardiovascular Disease | DX: Z01.818 Encounter for other preprocedural examination (principal) | CPT/HCPCS: 87635; C9803; U0005; U0003 ==

== ENCOUNTER → 2021-06-12 06:30 | Outpatient (CLI) | payer OTHER, SELFPAY ==
[2021-06-12 07:55] LABS: Absolute Lymphocyte Count 1.38 X10^3/uL (0.83-4.51); Basophil# 0.04 X10^3/uL; Eosinophil# 0.17 X10^3/uL; Eosinophils% 4.2 % (0-5); Hematocrit 44.1 % (40-54); Hemoglobin 15.5 g/dL (13.0-16.5); Lymphocyte # 1.38 X10^3/ul (0.83-4.51); Lymphocyte % 33.7 % (19-41); Mean Corp Hgb Conc 35.1 g/dL (32-36); Mean Corpuscular Hgb 30.9 pg (27.0-32.0); Mean Platelet Vol. 11.4 fl (6.2-12.0); Monocyte# 0.47 X10^3/uL; Monocyte% 11.5 % (0-10); NRBC Flagged by Analyzer 0 % (0-5); Neutrophil # 2.02 X10^3/uL (2.7-7.7); Neutrophil % 49.4 % (47-70); Platelet Count 168 K/mm3 (150-450); RBC Distribution Width CV 12.3 % (11.6-14.6); RBC Distribution Width SD 39.8 fl (35.1-43.9); Red Blood Count 5.01 M/mm3 (4.6-6.2); White Blood Count 4.1 K/mm3 (4.4-11.0)
[2021-06-12 08:29] LABS: AST(SGOT) 28 U/L (15-37); Alanine Aminotransfer ALT/SGPT 44 U/L (16-61); Albumin, Serum 3.7 g/dL (3.2-5.0); Alkaline Phosphatase 76 U/L (45-117); Anion Gap 7 (5-15); BUN 17 mg/dL (7-18); BUN/Creat Ratio 19.7 RATIO (10-20); Bilirubin, Direct 0.16 mg/dL (0.00-0.30); Calcium,Total 8.7 mg/dL (8.5-10.1); Chloride 108 mmol/L (98-107); Cholesterol 110 mg/dL (200); Creatinine, Serum 0.86 mg/dL (0.70-1.30); EST Glomerular Filtration Rate 100 mL/min (>60); Est Glom Filt Rate - Afr Amer 121 mL/min (>60); Globulin 3.2 g/dL (2.2-4.2); Glucose 102 mg/dL (74-106); High Density Lipoprotein 37 mg/dL; Potassium 3.8 mmol/L (3.5-5.1); Protein, Total 6.9 g/dL (6.4-8.2); Sodium Level 140 mmol/L (136-145); Triglycerides 96 mg/dL; Very Low Density Lipoprotein 19 mg/dL (5-40)
== END ==
PROVIDERS: Referring Provider Nurse Practitioner Family; Visit Provider Nurse Practitioner Family
DX: I25.10 Atherosclerotic heart disease of native coronary artery without angina pectoris (principal); I25.5 Ischemic cardiomyopathy; I10 Essential (primary) hypertension; E78.00 Pure hypercholesterolemia, unspecified; Z95.810 Presence of automatic (implantable) cardiac defibrillator; Z95.5 Presence of coronary angioplasty implant and graft
CPT/HCPCS: 36415; 80048; 80061; 80076; 85025

== ENCOUNTER → 2022-01-04 | Outpatient (CLI) | payer OTHER, SELFPAY ==
[2022-01-04 07:13] LABS: AST(SGOT) 21 U/L (15-37); Alanine Aminotransfer ALT/SGPT 42 U/L (16-61); Albumin, Serum 3.8 g/dL (3.2-5.0); Alkaline Phosphatase 65 U/L (45-117); Bilirubin, Direct 0.17 mg/dL (0.00-0.30); Cholesterol 104 mg/dL (200); Globulin 2.7 g/dL (2.2-4.2); High Density Lipoprotein 32 mg/dL; Protein, Total 6.5 g/dL (6.4-8.2); Triglycerides 123 mg/dL; Very Low Density Lipoprotein 25 mg/dL (5-40)
== END | disposition home or self-care (01) ==
LOC: LAB 06:21
PROVIDERS: Referring Provider Nurse Practitioner Family; Visit Provider Nurse Practitioner Family
DX: E78.00 Pure hypercholesterolemia, unspecified (principal)
CPT/HCPCS: 36415; 80061; 80076

== ENCOUNTER → 2022-06-11 | Outpatient (CLI) | payer OTHER, SELFPAY ==
[2022-06-11 08:10] LABS: AST(SGOT) 18 U/L (15-37); Alanine Aminotransfer ALT/SGPT 38 U/L (16-61); Albumin, Serum 3.9 g/dL (3.2-5.0); Alkaline Phosphatase 71 U/L (45-117); Bilirubin, Direct 0.17 mg/dL (0.00-0.30); Cholesterol 119 mg/dL (200); Globulin 3.1 g/dL (2.2-4.2); High Density Lipoprotein 34 mg/dL; Triglycerides 134 mg/dL; Very Low Density Lipoprotein 27 mg/dL (5-40)
== END | disposition home or self-care (01) ==
LOC: LAB 06:21
PROVIDERS: Referring Provider Nurse Practitioner Family; Visit Provider Nurse Practitioner Family
DX: E78.00 Pure hypercholesterolemia, unspecified (principal)
CPT/HCPCS: 36415; 80061; 80076

== ENCOUNTER → 2022-12-16 | Outpatient (CLI) | payer OTHER, SELFPAY ==
[2022-12-16 16:26] LABS: AST(SGOT) 25 U/L (15-37); Alanine Aminotransfer ALT/SGPT 43 U/L (16-61); Alkaline Phosphatase 62 U/L (45-117); Bilirubin, Direct 0.21 mg/dL (0.00-0.30); Cholesterol 102 mg/dL (200); Globulin 2.8 g/dL (2.2-4.2); High Density Lipoprotein 34 mg/dL; Protein, Total 6.8 g/dL (6.4-8.2); Triglycerides 101 mg/dL; Very Low Density Lipoprotein 20 mg/dL (5-40)
== END | disposition home or self-care (01) ==
LOC: LAB 15:21
PROVIDERS: Referring Provider Nurse Practitioner Family; Visit Provider Nurse Practitioner Family
DX: E78.00 Pure hypercholesterolemia, unspecified (principal)
CPT/HCPCS: 36415; 80061; 80076

== ENCOUNTER → 2023-07-31 | Outpatient (CLI) | payer SELFPAY ==
[2023-07-31 16:44] LABS: AST(SGOT) 26 U/L (15-37); Alanine Aminotransfer ALT/SGPT 48 U/L (16-61); Albumin, Serum 4.1 g/dL (3.2-5.0); Alkaline Phosphatase 76 U/L (45-117); Bilirubin, Direct 0.19 mg/dL (0.00-0.30); Cholesterol 119 mg/dL (200); Globulin 3.2 g/dL (2.2-4.2); High Density Lipoprotein 33 mg/dL; Protein, Total 7.3 g/dL (6.4-8.2); Triglycerides 124 mg/dL; Very Low Density Lipoprotein 25 mg/dL (5-40)
--- OUTSIDE RECORDS SUMMARY | 2023-07-31 18:08 | XMS RPT_ITS | CCD ---
Author Name Unknown Address [facility] [place] [address] Organization [facility] Care Team Providers Care Mobile Device Engineer Name Role Phone FUNMILAYO, JEAN G Referring Unavailable FUNMILAYO, JEAN G Attending Unavailable JAGUAR, LUZMARIA S Referring Unavailable FUNMILAYO, JEAN G Attending Unavailable FUNMILAYO, JEAN G Attending Unavailable FUNMILAYO, JEAN G Admitting Unavailable Results Test Name Value Interpretation Reference Range Facil ity Encounters Encounter Date Encounter Type Care Provider Facility Start: 04-05-2021 End: 04-05-2021 ambulatory JEAN G FUNMILAYO Facility:[facility] Start: 02-07-2021 ambulatory JEAN G FUNMILAYO Facility: [facility] Start: 01-16-2021 ambulatory LUZMARIA S JAGUAR Facility: [facility] Summary Purpose Family History No Family History Records Found Advance Directives No Advanced Directives Records Found Additional Source Comments (unrecognized sect ion and content) No Status Records Found INFORMATION SOURCE (unrecogn ized section and content) FOR RECORDS PERTAINING TO PATIENTS WHO ARE OR HAVE BEEN ENROLLED IN A CHEMICAL DEPENDENCY/SUBSTANCEABUSE PROGRAM, SOME INFORMATION MAY BE OMITTED. This clinical summary was aggregated from multiple sources. Caution should be exercised in using it in the provision of clinical care. This summary normalizes information from multiple sources, and as a consequence, information in this document may materially change the coding, format and clinical context of patient data. In addition, data may be omitted in some cases. CLINICAL DECISIONS SHOULD BE BASED ON THE PRIMARY CLINICAL RECORDS. [employer] provides no warranty or guarantee of the accuracy or completeness of information in this document.
== END | disposition home or self-care (01) ==
PROVIDERS: Referring Provider Nurse Practitioner Family; Visit Provider Nurse Practitioner Family
DX: E78.00 Pure hypercholesterolemia, unspecified (principal)
CPT/HCPCS: 36415; 80061; 80076

== ENCOUNTER → 2023-10-02 | Outpatient (CLI) | payer SELFPAY, OTHER ==
--- NOTE | 2023-10-02 09:42 | ECHOCS_ITS ---
Reason For Study: Ischemic Cardiomyopathy Procedure This was a 2D Doppler, Color Flow transthoracic echocardiogram. The study was technically difficult. Contrast injection was performed. Exam performed in department. Left Ventricle Normal LV size. The left ventricular ejection fraction is 35 %. Moderate segmental systolic dysfunction (see wall motion). Stage 2 diastolic dysfunction. [place] : Akinetic. Mid-anteroseptal : Akinetic. Mid-Anterior : Hypokinetic. Right Ventricle Normal RV size. Normal systolic function. Tricuspid Valve Normal tricuspid valve. Aortic Valve Trisinus/trileaflet aortic valve. Pulmonic Valve The pulmonic valve is not well visualized. Great Vessels Normal aortic root. The pulmonary artery is normal size. Normal inferior vena cava. Pericardium/Pleural No pericardial effusion. Medication 20 gauge I.V. with prn adaptor inserted into right arm. Diluted definity 1.5ml given slow IV push to enhance endocardial definition. MMode/2D Measurements & Calculations LVIDd: 6.1 cm IVSd: 0.74 cm Ao root diam: 3.0 cm LVIDs: 5.0 cm LVPWd: 0.80 cm LA dimension: 4.3 cm FS: 17.9 % LAV(MOD-bp): 50.7 ml LVAd ap4: 40.8 cm2 SV(MOD-sp4): 56.0 ml LAV(MOD-bp) Indexed: 24.5 ml/m2 LVLd ap4: 8.6 cm LAV(MOD-sp2): 48.2 ml EDV(MOD-sp4): 157.1 ml LAV(MOD-sp4): 49.9 ml EDV(sp4-el): 164.5 ml LVAs ap4: 30.7 cm2 LVLs ap4: 7.7 cm ESV(MOD-sp4): 101.1 ml ESV(sp4-el): 104.3 ml EF(MOD-sp4): 35.6 % EF(sp4-el): 36.6 % SV(sp4-el): 60.1 ml LA A4 area: 17.1 cm2 Time Measurements MV dec time: 0.10 sec Doppler Measurements & Calculations MV E max jace: 92.8 cm/sec Lat Peak E' Jace: 12.1 cm/sec Med Peak E' Jace: 17.3 cm/sec MV A max jace: 61.2 cm/sec E/E' lat: 7.6 E/E' med: 5.4 MV E/A: 1.5 MV V2 max: 102.5 cm/sec MV P1/2t max jace: 102.5 cm/sec Ao V2 max: 97.8 cm/sec MV max P.2 mmHg MV P1/2t: 35.2 msec Ao max P.8 mmHg MV V2 mean: 46.3 cm/sec MV dec slope: 852.3 cm/sec2 Ao V2 mean: 70.8 cm/sec MV mean P.1 mmHg Ao mean P.3 mmHg MV V2 VTI: 23.4 cm MVA(P1/2t): 6.2 cm2 Ao V2 VTI: 23.0 cm AV (velocity ratio): 0.91 LV V1 max: 93.4 cm/sec PA V2 max: 113.9 cm/sec LV V1 max P.5 mmHg PA V2 mean: 79.7 cm/sec LV V1 mean P.0 mmHg LV V1 mean: 65.8 cm/sec LV V1 VTI: 21.0 cm ECHO/Echo Complete W/ Contrast Interpretation Summary The left ventricular ejection fraction is 35 %. Normal LV size. Moderate segmental systolic dysfunction (see wall motion). Stage 2 diastolic dysfunction. Contrast injection was performed. Ordering Physician: Wei Menjivar Referring Physician: Wei Menjivar Performed By: Mateo Card, [facility]
== END | disposition home or self-care (01) ==
LOC: CVS 09:40
PROVIDERS: Referring Provider Internal Medicine Cardiovascular Disease; Visit Provider Internal Medicine Cardiovascular Disease
DX: I25.5 Ischemic cardiomyopathy (principal)
CPT/HCPCS: 93306; Q9957; A4216; C8929

== ENCOUNTER → 2024-02-09 | Outpatient (CLI) | payer SELFPAY ==
[2024-02-09 10:26] LABS: AST(SGOT) 30 U/L (15-37); Alanine Aminotransfer ALT/SGPT 35 U/L (16-61); Albumin, Serum 3.8 g/dL (3.2-5.0); Alkaline Phosphatase 67 U/L (45-117); Bilirubin, Direct 0.12 mg/dL (0.00-0.30); Cholesterol 94 mg/dL (200); High Density Lipoprotein 38 mg/dL; Protein, Total 6.8 g/dL (6.4-8.2); Triglycerides 79 mg/dL; Very Low Density Lipoprotein 16 mg/dL (5-40)
== END | disposition home or self-care (01) ==
LOC: LAB 08:39
PROVIDERS: Referring Provider Nurse Practitioner Family; Visit Provider Nurse Practitioner Family
DX: E78.00 Pure hypercholesterolemia, unspecified (principal)
CPT/HCPCS: 36415; 80061; 80076

== ENCOUNTER → 2024-11-23 | Outpatient (CLI) | payer SELFPAY ==
[2024-11-23 18:13] LABS: AST(SGOT) 27 U/L (<=37); Alanine Aminotransfer ALT/SGPT 32 U/L (<=46); Albumin, Serum 4.5 g/dL (3.5-5.0); Alkaline Phosphatase 64 U/L (40-129); Anion Gap 12 (5-15); BUN 17 mg/dL (4-19); BUN/Creat Ratio 16.5 RATIO (10-20); Calcium,Total 9.4 mg/dL (7.6-11.0); Carbon Dioxide 24.3 mmol/L (21.0-32.0); Chloride 103 mmol/L (98-108); Creatinine, Serum 1.04 mg/dL (0.70-1.20); EST Glomerular Filtration Rate 86 (>60); Globulin 2.2 g/dL (2.2-4.2); Glucose 86 mg/dL (70-99); Potassium 3.8 mmol/L (3.3-5.1); Protein, Total 6.7 g/dL (5.9-8.4); Sodium Level 139 mmol/L (133-145); Total Bilirubin 0.74 mg/dL (0.00-1.30)
[2024-11-23 18:37] LABS: Cholesterol 118 mg/dL (<=200); High Density Lipoprotein 34 mg/dL; Low Density Lipoprotein Calc. 71 mg/dL; Triglycerides 69 mg/dL; Very Low Density Lipoprotein 14 mg/dL (5-40); cholesterol:hdl ratio screen 3.51
== END | disposition home or self-care (01) ==
LOC: LAB 16:27
PROVIDERS: Referring Provider Physician Assistant Medical; Visit Provider Physician Assistant Medical
DX: I10 Essential (primary) hypertension (principal); I25.5 Ischemic cardiomyopathy; E78.00 Pure hypercholesterolemia, unspecified; Z95.5 Presence of coronary angioplasty implant and graft; Z95.810 Presence of automatic (implantable) cardiac defibrillator
CPT/HCPCS: 36415; 80053; 80061

== ENCOUNTER → 2024-12-07 | Outpatient (CLI) | payer SELFPAY ==
--- NOTE | 2024-12-08 10:02 | STRESSREP ---
Stress Test Report Pharmacologic myocardial perfusion stress test. 54-year-old man with a history of coronary artery disease previous anterior myocardial infarction Resting EKG demonstrates sinus rhythm with a rate of 62 bpm. Poor R wave progression noted. Resting blood pressure is 112/78 mmHg. 0.4 mg of regadenoson was infused per usual protocol followed by rapid intravenous saline flush injection. Continuous EKG monitoring was performed. The maximum heart rate was 90 bpm which was 53% of max impacted heart rate the maximum workload was 1 metabolic equivalent. At rest there were no ST or T wave changes noted to suggest ischemia and at peak infusion nonspecific ST changes were noted which did not meet the criteria for ischemia. No clinical angina is noted. The final blood pressure was 106/64 mmHg. Myocardial perfusion protocol. 13.1 mCi of technetium 99m sestamibi was injected at rest. 0.4 mg of regadenoson was infused per usual protocol. At peak infusion 39.7 mCi of technetium 99m sestamibi was injected stress images were obtained stress and rest images were reconstructed and compared in the short axis vertical long and horizontal long axis. Gated images were also obtained. Perfusion SPECT analysis: Review of the stress images demonstrate a large defect noted involving the mid anterior wall extending to the apex and the inferior apical wall. The rest of the molina appear to have normal perfusion. The resting images demonstrate a similar pattern in the same distribution. The above is suggestive of an extensive previous anterior infarct. No reversibility is noted to suggest ischemia. Gated SPECT analysis: The gated ejection fraction is 30%. Conclusion: pharmacologic myocardial perfusion stress test with evidence of previous extensive anterior infarct. Reduced ejection fraction. No ischemia present
== END | disposition home or self-care (01) ==
LOC: CVS 06:04
PROVIDERS: Referring Provider Physician Assistant Medical; Visit Provider Physician Assistant Medical
DX: Z95.810 Presence of automatic (implantable) cardiac defibrillator (principal); I25.5 Ischemic cardiomyopathy; Z95.5 Presence of coronary angioplasty implant and graft; I10 Essential (primary) hypertension; E78.00 Pure hypercholesterolemia, unspecified
CPT/HCPCS: 78452; 93017; A9500; A4216; J2785

== ENCOUNTER → 2025-05-25 | Outpatient (CLI) | payer SELFPAY ==
[2025-05-25 18:08] LABS: AST(SGOT) 33 U/L (<=37); Alanine Aminotransfer ALT/SGPT 34 U/L (<=46); Albumin, Serum 4.4 g/dL (3.5-5.0); Alkaline Phosphatase 70 U/L (40-129); Bilirubin, Direct 0.27 mg/dL (0.00-0.30); Cholesterol 111 mg/dL (<=200); Globulin 2.5 g/dL (2.2-4.2); Low Density Lipoprotein Calc. 57 mg/dL; Triglycerides 102 mg/dL; Very Low Density Lipoprotein 20 mg/dL (5-40); cholesterol:hdl ratio screen 3.20
== END | disposition home or self-care (01) ==
LOC: LAB 15:49
PROVIDERS: Referring Provider Physician Assistant Medical; Visit Provider Physician Assistant Medical
DX: E78.00 Pure hypercholesterolemia, unspecified (principal)
CPT/HCPCS: 36415; 80061; 80076